=== PATIENT | female | born 1985 | race African-American/Black ===

== ENCOUNTER 2017-05-23 10:15 | Emergency (ER) | payer BC ==
[2017-05-23 10:55] LABS: Bilirubin Negative (Negative); Blood, Urine Moderate (Negative); Glucose, Urine (Dipstick) Negative (Negative); Ketone, Urine Negative (Negative); Nitrite Negative (Negative); Protein, Urine (Dipstick) Negative (Neg-Trace)
[2017-05-23 11:00] LABS: #Eosinphils 0.1 thou/uL (0.0-0.7); #Lymphocytes 2.8 thou/uL (1.20-3.40); #Monocytes 0.8 thou/uL (0.11-0.59); #Neutrophils 9.3 thou/uL (1.40-6.50); %Basophils 0.3 % (0.0-1.0); %Eosinophils 0.9 % (0.0-10.0); %Lymphocytes 21.3 % (21.0-51.0); Hematocrit 39.6 % (36.0-47.0); Red Blood Cell (RBC) Count 5.13 mill/uL (4.20-5.40); White Blood Cell (WBC) Count 13.1 thou/uL (4.8-10.8)
[2017-05-23 11:16] LABS: Hypersemented Neutrophil SLIGHT; Hypochromia SLIGHT = 6-15 cells (100X) (0-5/hpf); Microcytosis SLIGHT = 6-15 cells (100X) (0-5/hpf); Ovalocytes SLIGHT = 2-5 cells (100X) (0-1/hpf); Polychromasia SLIGHT = 2-3 cells (100X) (0-2/hpf)
[2017-05-23 11:18] LABS: ALT (SGPT) 7 U/L (8-55); AST (SGOT) 9 U/L (5-34); Alkaline Phosphatase 91 U/L (40-150); Anion Gap 12 mmol/L (10-20); BUN (Urea Nitrogen) 9 mg/dL (7.0-18.7); Bilirubin, Total 0.8 mg/dL (0.2-1.2); Calc. Creatinine Clearance 0 mL/min (70-130); Calcium 9.4 mg/dL (7.8-10.44); Carbon Dioxide 29 mmol/L (22-29); Chloride 103 mmol/L (98-107); Estimated GFR-MDRD Greater than 90; Globulin 4.3 g/dL (2.4-3.5); Lipase 5 U/L (8-78); Protein, Total 8.4 g/dL (6.0-8.3)
[2017-05-23] MEDS ORDERED: Ketorolac Tromethamine 60 MG/2 ML VIAL ONE (11:48)
[2017-05-23 11:58] LABS: Bacteria/HPF None Seen HPF (None Seen); Hyaline Casts/LPF 0-3 HYALINE CAST LPF (0-3 Hyaline); Squamous Epithelial 0-3 HPF (0-3); WBC/HPF 21-50 HPF (0-3)
--- NOTE | 2017-05-23 13:25 | CT ---
CT OF THE ABDOMEN AND PELVIS WITHOUT CONTRAST: COMPARISON: None. HISTORY: Lower abdominal pain since yesterday. TECHNIQUE: Multiple contiguous axial images were obtained in a CT of the abdomen and pelvis without contrast. Coronal reformats were performed. FINDINGS: The patient is status post cholecystectomy. The liver, kidneys, adrenal glands, spleen, and pancrea s are unremarkable, although evaluation is limited on this noncontrast examination. No free air, free fluid, or stranding changes are seen in the abdomen or pelvis. The large and smal l bowel are unremarkable. The appendix is normal. The uterus is enlarged. The visualized abdominal wall soft tissues unremarkable. The bones are unremarkable. The visualize d inferior thorax is unremarkable. IMPRESSION: Stable enlargement of the uterus is most likely secondary to uterine fibroids. POS: [facility]
== END 2017-05-23 13:08 | disposition home or self-care (01) ==
LOC: ERS 10:15
DX: N30.00 Acute cystitis without hematuria (principal); D25.9 Leiomyoma of uterus, unspecified; I10 Essential (primary) hypertension; E66.9 Obesity, unspecified; Z87.891 Personal history of nicotine dependence; Z79.899 Other long term (current) drug therapy
CPT/HCPCS: 36415; 74176; 80053; 81003; 81015; 81025; 83690; 85025; 87086; 96372; J1885

== ENCOUNTER 2017-05-24 12:50 | Emergency (ER) | payer BC, SELFPAY ==
[2017-05-24 14:32] LABS: #Eosinphils 0.2 thou/uL (0.0-0.7); #Lymphocytes 2.5 thou/uL (1.20-3.40); #Neutrophils 11.6 thou/uL (1.40-6.50); %Basophils 0.2 % (0.0-1.0); %Lymphocytes 16.2 % (21.0-51.0); %Monocytes 6.3 % (0.0-10.0); Hematocrit 37.5 % (36.0-47.0); Red Blood Cell (RBC) Count 4.88 mill/uL (4.20-5.40); White Blood Cell (WBC) Count 15.3 thou/uL (4.8-10.8)
[2017-05-24 14:54] LABS: ALT (SGPT) 8 U/L (8-55); AST (SGOT) 11 U/L (5-34); Alkaline Phosphatase 93 U/L (40-150); Anion Gap 13 mmol/L (10-20); BUN (Urea Nitrogen) 8 mg/dL (7.0-18.7); Bilirubin, Total 0.9 mg/dL (0.2-1.2); Calc. Creatinine Clearance 0 mL/min (70-130); Calcium 9.2 mg/dL (7.8-10.44); Carbon Dioxide 26 mmol/L (22-29); Chloride 104 mmol/L (98-107); Estimated GFR-MDRD Greater than 90; Globulin 4.1 g/dL (2.4-3.5)
[2017-05-24] MEDS ORDERED: Ibuprofen 800 MG TAB ONE (14:56)
--- NOTE | 2017-05-24 15:40 | ULT ---
HISTORY: Vaginal bleeding. History of fibroids, enlarged uterus. PELVIC ULTRASOUND: 05/24/17 Multiple longitudinal and transverse images of the pelvis obtained using a multihertz curvilinear t ransabdominal as well as multihertz endovaginal transducers. Real time and color flow images are use d to evaluate the pelvis. The uterus is bulky measuring 16.2 x 9.8 x 12.7 cm and is heterogeneous. T he endometrium is markedly thickened measuring 3.8 cm. Exam is limited due to the patient's body hab itus. If there is concern for significant pelvic pathology, correlate with physical exam and pelvic MRI electively. Due to the patient's body habitus, pelvic sonography is less than optimum. Right and left ovaries are not visualized. IMPRESSION: 1. Abnormal thickening of the endometrium. 2. Limited pelvic ultrasound. POS: [facility]
== END 2017-05-24 15:33 | disposition home or self-care (01) ==
LOC: ERS 12:50
DX: D25.9 Leiomyoma of uterus, unspecified (principal); I10 Essential (primary) hypertension; E66.9 Obesity, unspecified; Z87.891 Personal history of nicotine dependence
CPT/HCPCS: 36415; 76856; 80053; 84702; 85025

== ENCOUNTER 2017-12-04 00:08 | Emergency (ER) | payer SELFPAY | END 2017-12-04 01:08 | disposition home or self-care (01) | LOC: ERS 00:08 | DX: J06.9 Acute upper respiratory infection, unspecified (principal); D50.0 Iron deficiency anemia secondary to blood loss (chronic); I10 Essential (primary) hypertension; E66.9 Obesity, unspecified; Z87.891 Personal history of nicotine dependence; Z79.899 Other long term (current) drug therapy | CPT/HCPCS: 99283 ==

== ENCOUNTER 2018-01-13 16:30 | Emergency (ER) | payer SELFPAY ==
[2018-01-13 17:32] LABS: Hemoglobin 8.1 g/dL (12.0-16.0); Mean Corpuscular HGB CONC 29.7 g/dL (32.0-36.0); Mean Corpuscular Hemoglobin 19.7 pg (27.0-31.0); Mean Corpuscular Volume 66.3 fl (81.0-99.0); Mean Platelet Volume 9.9 fL (7.4-10.4); Platelet Count 351 thou/uL (130-400); RBC Distribution Width 15.8 % (11.5-14.5); Red Blood Cell (RBC) Count 4.11 mill/uL (4.20-5.40); White Blood Cell (WBC) Count 15.4 thou/uL (4.8-10.8)
[2018-01-13 17:36] LABS: INR-International Normal Ratio 1.1; Prothrombin Time 14.5 SEC (12.0-14.7)
[2018-01-13 17:46] LABS: Bilirubin Small (Negative); Blood, Urine Moderate (Negative); Clarity CLOUDY (Clear); Glucose, Urine (Dipstick) Negative (Negative); Leukocyte Moderate (Negative); Nitrite Negative (Negative); Protein, Urine (Dipstick) Trace mg/dL (Neg-Trace); Specific Gravity, Urine 1.038 (1.002-1.036)
[2018-01-13 17:48] LABS: Bacteria/HPF None Seen HPF (None Seen); Pathc Cast-AUWi Flag 0.72 (0-2.49); Squamous Epithelial 0-3 HPF (0-3)
[2018-01-13 17:51] LABS: Hyaline Casts/LPF 0-3 HYALINE CAST LPF (0-3 Hyaline); Pregnancy Test - Urine (BHCG) Negative (Negative); Pregu Control Background? CLEAR/WHITE (CLR/WHITE); Pregu Control Bar Appear? YES (CONTROL BAR); Specific Gravity 1.038 (1.002-1.036)
[2018-01-13 17:52] LABS: #Basophils 0.1 thou/uL (0.0-0.2); #Lymphocytes 2.3 thou/uL (1.20-3.40); #Monocytes 1.3 thou/uL (0.11-0.59); #Neutrophils 11.7 thou/uL (1.40-6.50); %Basophils 0.5 % (0.0-1.0); %Eosinophils 0.2 % (0.0-10.0); %Lymphocytes 14.8 % (21.0-51.0); %Monocytes 8.2 % (0.0-10.0); %Neutrophils 76.2 % (42.0-75.0); Anisocytosis SLIGHT = 6-15 cells (100X) (0-5/hpf); Hypochromia SLIGHT = 6-15 cells (100X) (0-5/hpf); MDiff Complete? YES; Microcytosis SLIGHT = 6-15 cells (100X) (0-5/hpf); Ovalocytes SLIGHT = 2-5 cells (100X) (0-1/hpf); PLT Morphology Comment Appears Adequate; Polychromasia SLIGHT = 2-3 cells (100X) (0-2/hpf)
[2018-01-13 17:55] LABS: ALT (SGPT) 7 U/L (8-55); AST (SGOT) 9 U/L (5-34); Albumin 4.1 g/dL (3.5-5.0); Alkaline Phosphatase 68 U/L (40-150); Anion Gap 8 mmol/L (10-20); BUN (Urea Nitrogen) 9 mg/dL (7.0-18.7); Bilirubin, Total 1.5 mg/dL (0.2-1.2); Calc. Creatinine Clearance 0 mL/min (70-130); Calcium 9.5 mg/dL (7.8-10.44); Carbon Dioxide 30 mmol/L (22-29); Chloride 102 mmol/L (98-107); Estimated GFR-MDRD Greater than 90; Globulin 4.1 g/dL (2.4-3.5); Glucose 94 mg/dL (70-105); Potassium 3.7 mmol/L (3.5-5.1); Protein, Total 8.2 g/dL (6.0-8.3); Sodium 136 mmol/L (136-145)
--- NOTE | 2018-01-13 18:24 | RAD ---
CHEST ONE VIEW: 01/13/18 HISTORY: Emergency exam. Dizziness and chills. COMPARISON: Chest radiograph 2010. FINDINGS: Lungs are clear. No pneumothorax or effusion. The cardiac silhouette and mediastinal contours are wit hin normal limits. No acute osseous abnormality. IMPRESSION: No acute intrathoracic abnormality. POS: [facility]
[2018-01-13] MEDS ORDERED: cefTRIAXone\\ROCEPHIN 2 GM VIAL ONE (19:17)
== END 2018-01-13 20:48 | disposition home or self-care (01) ==
LOC: ERS 16:30
DX: N30.91 Cystitis, unspecified with hematuria (principal); Z85.42 Personal history of malignant neoplasm of other parts of uterus; D50.9 Iron deficiency anemia, unspecified; I10 Essential (primary) hypertension; E66.9 Obesity, unspecified; Z87.891 Personal history of nicotine dependence; Z79.899 Other long term (current) drug therapy
CPT/HCPCS: 36415; 71045; 80053; 81003; 81015; 81025; 85025; 85610; 87081; 87086; 87430; 93005; 96361; 96365; J0696

== ENCOUNTER 2019-03-28 05:17 | Observation (INO) | payer SELFPAY ==
[2019-03-28] MEDS ORDERED: Morphine 4 MG/ML VIAL ONE (06:27)
[2019-03-28 07:24] LABS: BHCG - Serum Negative (NEGATIVE); Pregs Control Background? CLEAR/WHITE (CLR/WHITE); Pregs Control Bar Appear? YES (CONTROL BAR)
[2019-03-28 07:41] LABS: ALT (SGPT) 9 U/L (8-55); AST (SGOT) 32 U/L (5-34); Albumin 4.1 g/dL (3.5-5.0); Alkaline Phosphatase 117 U/L (40-150); Anion Gap 12 mmol/L (10-20); BUN (Urea Nitrogen) 7 mg/dL (7.0-18.7); Bilirubin, Total 0.5 mg/dL (0.2-1.2); Calc. Creatinine Clearance 0 mL/min (70-130); Calcium 9.9 mg/dL (7.8-10.44); Carbon Dioxide 22 mmol/L (22-29); Chloride 105 mmol/L (98-107); Estimated GFR-MDRD Greater than 90; Globulin 4.2 g/dL (2.4-3.5); Glucose 86 mg/dL (70-105); Lipase 10 U/L (8-78); Protein, Total 8.3 g/dL (6.0-8.3); Sodium 135 mmol/L (136-145)
[2019-03-28 07:53] LABS: Bacteria/HPF 4+ HPF (None Seen); Bilirubin Negative (Negative); Blood, Urine 2+ (Negative); Clarity Extra Turbid (Clear); Glucose, Urine (Dipstick) Normal (Negative); Leukocyte 500 Leu/uL (Negative); Nitrite Negative (Negative); Protein, Urine (Dipstick) 10 mg/dL (Neg-Trace); Squamous Epithelial 0-3 HPF (0-3); Urobilinogen 3 mg/dL (Less than 2)
--- NOTE | 2019-03-28 08:11 | CT ---
CT OF THE ABDOMEN AND PELVIS WITH IV CONTRAST INDICATION: Right upper quadrant abdominal pain COMPARISON: CT of the abdomen and pelvis without contrast dated May 23, 2017 FINDINGS: ABDOMEN: Lung bases: Clear Liver: There are hypodense masses now present within the central aspect of the right hepatic lobe on image 22, 21 and 18 of series 3. The largest measures 3.3 cm on image 18 series 3. There is diffuse hypodensity involving multiple portions of the right hepatic lobe. Gallbladder: Surgically absent Pancreas: Normal. Adrenal glands: Normal. Spleen: Enlarged measuring 17 cm Kidneys: Normal. Retroperitoneum of the upper abdomen: There is a mildly prominent left common iliac lymph node on roxanne ge 60 series 3 measuring 1.3 cm. There are additional mildly prominent lymph nodes seen along both iliac regions. There are enlarged periaortic lymph nodes measuring up to 1.8 cm image 51 series 3. Th ere is an aortocaval lymph node measuring 1.4 cm. Pelvis: Small and large bowel: Normal Bladder: Decompressed. Small amount of fluid is seen superior to the superior dome of the bladder. Rectal and perirectal soft tissues:Normal. Reproductive structures: The uterus is enlarged and heterogeneous with an associated IUD. Free fluid in pelvis: Mild free fluid is seen between the enlarged uterus and decompressed bladder Lymphadenopathy pelvis: There are enlarged lymph nodes seen along the left external iliac chain. When the largest is seen measuring 2.1 cm image 90 of series 3. There are mildly prominent inguinal lymph nodes bilaterally. There is a prominent lymph node seen adjacent to the left internal iliac art ailyn measuring 1.7 cm. Osseous structures: No acute fracture or subluxation demonstrated. There is scattered degenerative a nd osteoarthritic changes. IMPRESSION: 1. Hepatic hypodensities with retroperitoneal and pelvic lymphadenopathy suspicious for metastatic di sease. 2. Enlarged heterogeneous uterus likely correlating with the patient's known history of endometrial c arcinoma. There is an IUD within the lower central aspect of the enlarged uterus. 3. Mild splenomegaly
[2019-03-28 08:12] LABS: #Basophils 0.1 thou/uL (0.0-0.2); #Eosinphils 0.1 thou/uL (0.0-0.7); #Monocytes 1.1 thou/uL (0.11-0.59); #Neutrophils 6.8 thou/uL (1.40-6.50); %Basophils 0.7 % (0.0-1.0); %Eosinophils 0.8 % (0.0-10.0); %Lymphocytes 27.3 % (21.0-51.0); %Monocytes 10.2 % (0.0-10.0); Elliptocytes SLIGHT = 2-5 cells (100X) (0-1/hpf); Hemoglobin 9.5 g/dL (12.0-16.0); MDiff Complete? YES; Mean Corpuscular HGB CONC 30.6 g/dL (32.0-36.0); Mean Corpuscular Hemoglobin 21.3 pg (27.0-31.0); Mean Corpuscular Volume 69.4 fL (78.0-98.0); Mean Platelet Volume 9.5 fL (7.4-10.4); Microcytosis MODERATE=15-30 cells (100X) (0-5/hpf); Platelet Count 484 thou/uL (130-400); Polychromasia MODERATE = 3-4 cells (100X) (0-2/hpf); RBC Distribution Width 16.7 % (11.5-14.5); Red Blood Cell (RBC) Count 4.48 mill/uL (4.20-5.40); White Blood Cell (WBC) Count 11.1 thou/uL (4.8-10.8)
[2019-03-28] MEDS ORDERED: Ondansetron PF 4 MG/2 ML Vial IVP PRN (08:21)
[2019-03-28] MEDS ORDERED: Ondansetron ODT 4 MG TAB SL PRN (08:21)
[2019-03-28] MEDS ORDERED: Acetaminophen 325 MG TAB PO PRN (08:21)
[2019-03-28] MEDS ORDERED: HYDROcodone/Acetaminophen 5/325 mg Tablet PO PRN (08:21)
[2019-03-28] MEDS ORDERED: cefTRIAXone\\ROCEPHIN 1 GM VIAL ONE (08:50)
--- NOTE | 2019-03-28 09:21 | CT ---
CT PULMONARY ANGIOGRAM WITH IV CONTRAST AND 3D POSTPROCESSING: Date: 03/28/19 HISTORY: Right-sided chest pain, shortness of breath. Newly diagnosed endometrial cancer. FINDINGS: There is inadequate opacification of the pulmonary arterial vasculature, making this a nondiagnostic exam to evaluate for pulmonary embolism. The thoracic aorta is well opacified without aneurysm or dissection. No pleural or pericardial effusi ons are seen. No pneumothoraces or focal areas of consolidation are identified. There are multiple pa renchymal lung nodules, the largest of which measures about 8 mm in the superior segment of the left lower lobe. Upper abdominal tomograms demonstrate multiple liver masses. There are changes of cholecy stectomy. There are mild degenerative changes in the spine. IMPRESSION: 1. Nondiagnostic for pulmonary embolism. 2. Findings are suspicious for hepatic and pulmonary metastasis. POS: [facility]
[2019-03-28] MEDS: HYDROcodone/Acetaminophen 5/325 mg Tablet PO PRN ×2 (11:13→17:30)
[2019-03-28] MEDS ORDERED: cloNIDine 0.1 MG TAB PO PRN (11:22)
[2019-03-28] MEDS ORDERED: hydrALAZINE 20 MG/ML VIAL SLOW IVP PRN (11:22)
[2019-03-28] MEDS ORDERED: traMADol HCl 50 MG TAB PO PRN (11:36)
[2019-03-28] MEDS ORDERED: Ibuprofen 200 MG TAB PO PRN (11:36)
[2019-03-28] MEDS ORDERED: ISOVUE-370 76%-LOCM 1 ML ONE (11:59)
[2019-03-28 12:00] VITALS: BMI 26.1
--- NOTE | 2019-03-28 12:02 | HP ---
PRIMARY CARE: [facility]. CHIEF COMPLAINT: Shortness of breath. HISTORY OF PRESENT ILLNESS: The patient is a 33-year-old female with recently diagnosed endometrial carcinoma, presented to the emergency room with above complaints. Approximately a month ago, she was diagnosed with endometrial cancer. Earlier this month, she was evaluated at Oncology Clinic in [facility] by Dr. Swift. She currently has Mirena IUD in place. Megace was started. She was advised to follow up with Dr. Lugo in 4 months for repeat biopsy and for possible surgical intervention if needed. Three days ago, she was evaluated at [facility] for left lower extremity swelling along with some nonspecific shortness of breath. CT angiogram of the chest was negative for pulmonary embolism. It showed several pulmonary nodules. Left lower extremity Doppler was negative for DVT. She was discharged home. Over the last 2 days, the patient developed worsening shortness of breath along with pain on deep breathing. The pain is mainly on the right side of the chest as well as in the upper abdomen. She took some ibuprofen which partially helped. The pain is constant with intermittent stabbing. She denies any orthopnea. The leg swelling has somewhat improved over the last 3 to 4 days. She denies any nausea, vomiting, diaphoresis, palpitations, or fever. No history of pulmonary embolism in the past. PAST MEDICAL HISTORY: 1. Recently diagnosed endometrial cancer. 2. Hypertension. PAST SURGICAL HISTORY: 1. Endometrial biopsy. 2. Laparoscopic cholecystectomy. ALLERGIES: NO KNOWN DRUG ALLERGIES. CURRENT HOME MEDICATIONS: 1. Megace 40 mg twice a day. 2. Lisinopril/hydrochlorothiazide 20/12.5 daily. 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 She is single. She is sexually active. She has a Mirena IUD. She denies current use of smoking, alcohol, or drug use. FAMILY HISTORY: Negative for malignancy. REVIEW OF SYSTEMS: All other review of systems reviewed and were found negative. PHYSICAL EXAMINATION: VITAL SIGNS: Temperature 98.2, respirations 18, pulse 96, blood pressure 185/ 119, repeat blood pressure was 162/124. GENERAL: A 33-year-old female in no significant distress at rest. HEENT: Head, atraumatic and normocephalic. Sclerae anicteric. Moist mucous membranes. No oral lesion. NECK: Supple. No JVD appreciated. No carotid bruit. LUNGS: Clear to auscultation bilaterally. No wheezing, rales, rhonchi. There is questionable tenderness over the right lower chest. ABDOMEN: Soft. There is tenderness in the right upper quadrant. No rebound or guarding. EXTREMITIES: 2+ edema in bilateral lower extremities. No calf tenderness. SKIN: Warm and dry. LYMPH NODES: No palpable lymph nodes in the neck. PERIPHERAL VASCULAR: Radial pulses palpable bilaterally. MUSCULOSKELETAL: No joint swelling or tenderness. LABORATORY FINDINGS: WBC 11.1, hemoglobin 9.5, hematocrit 31.1, platelet 484. D-dimer was 2.53. Sodium 135, potassium 4, chloride 105, bicarb 22, BUN 7, creatinine 0.66. testing was negative. Urinalysis showed 11 to 20 wbc's with 4+ bacteria. CT scan of the abdomen and pelvis by my review showed endometrial cancer with hepatic hypodensities with retroperitoneal and pelvic lymphadenopathy suspicious for metastatic disease. CT scan of the chest was nondiagnostic for pulmonary embolism. IMPRESSION: 1. Shortness of breath of unclear etiology. 2. Recently diagnosed endometrial cancer. 3. Hepatic hypodensities with retroperitoneal and pelvic lymphadenopathy suspicious for metastatic disease. 4. Pulmonary nodule suspicious for pulmonary metastasis. 5. Urinary tract infection. 6. Hypertension, uncontrolled. 7. Mild hyponatremia. 8. PLAN: The patient will be monitored on the telemetry unit. We will obtain an echocardiogram. V/Q scan will be obtained. Pain is pleuritic, mainly on the right, concerning for pulmonary embolism given a history of endometrial cancer. Please note that CT scan of the chest three days ago was negative for pulmonary embolism at [facility]. However, she did not have shortness of breath at that time. We will repeat one more set of troponin. Empiric antibiotics will be started. The patient was advised to follow up with Oncology Clinic at [facility]. Plan of care was discussed with the patient in detail. She stated understanding. Job ID: [id number] [facility]
[2019-03-28 12:18] LABS: Troponin I Less than 0.010 ng/mL (< 0.028)
--- NOTE | 2019-03-28 15:55 | NM ---
NUCLEAR MEDICINE LUNG VENTILATORY AND PERFUSION EVALUATION INDICATION: 33-year-old female with history of endometrial cancer and shortness of breath Radiopharmaceutical: Ventilation: 10.90 mCi xenon-133 inhaled. Perfusion: 5.30 mCi technetium 99m MAA IV. COMPARISON: None. FINDINGS: Ventilation: There is symmetric ventilatory activity on initial breath, breath-hold and washout image s. Perfusion: No large pleural-based perfusion abnormality is demonstrated. Mismatch: No mismatched ventilatory or perfusion abnormality is demonstrated. Additional findings: None. IMPRESSION: Low probability VQ scan for PE
--- NOTE | 2019-03-28 16:04 | RAD ---
Chest 2 views HISTORY: Chest pain. Dyspnea. COMPARISON: 05/02/2011. FINDINGS: Cardiac silhouette and pulmonary vasculature are unremarkable. Mediastinum is midline. No c onfluent airspace consolidation, pneumothorax, or pleural fluid. IMPRESSION: No active cardiopulmonary abnormalities are demonstrated.
[2019-03-28] MEDS ORDERED: Megestrol Acetate 40 MG TAB ONE (19:59)
[2019-03-28] MEDS: Megestrol Acetate 40 MG TAB PO SCH (20:03)
[2019-03-28] MEDS ORDERED: Enoxaparin Sodium 40 MG/0.4 ML SYRINGE SC SCH (21:00)
[2019-03-29] MEDS: Megestrol Acetate 40 MG TAB PO SCH (08:19)
[2019-03-29 08:30] VITALS: BP 139/90; TEMP 98.3
[2019-03-29] MEDS ORDERED: cefTRIAXone\\ROCEPHIN 1 GM in Sodium Chloride 0.9% 100 ML IVPB SCH (09:00)
[2019-03-29] MEDS ORDERED: Lisinopril/Hydrochlorothiazide 20 mg/12.5 mg Tablet PO SCH (09:00)
--- NOTE | 2019-03-29 17:31 | DIS ---
DATE OF ADMISSION: 03/28/2019 DATE OF DISCHARGE: 03/29/2019 DISCHARGE DISPOSITION: Home. FOLLOWUP: 1. Follow up with primary care physician at [facility] in 1 week. 2. Follow up with Oncology Service at [facility] in 1 to 2 weeks. ALLERGIES: THE PATIENT DENIES ANY DRUG ALLERGIES. DISCHARGE MEDICATION: 1. Ciprofloxacin 250 mg twice daily for next 3 days. 2. All other home medications were left unchanged. BRIEF HOSPITAL COURSE: The patient is a 33-year-old female with recently diagnosed endometrial cancer, presented to the hospital with shortness of breath. She was seen at [facility] three days ago for similar complaints. She underwent a CT angiogram of the chest in the emergency room that was nondiagnostic for pulmonary embolism. CT scan of the abdomen and pelvis showed endometrial cancer with hepatic hypodensities and retroperitoneal/pelvic lymphadenopathy suspicious for metastatic disease. A V/Q scan was done due to nondiagnostic CTA which showed low probability for pulmonary embolism. Echocardiogram showed left ventricular ejection fraction 60% to 65% with mild left ventricular hypertrophy. Her chest pain is probably musculoskeletal. She was advised to follow up with Oncology Service at [facility] due to suspected metastatic lesions in the liver and the lung. A copy of the CT scan of the chest and abdomen was provided to the patient. She was also found to have UTI and has been started on ciprofloxacin. She was advised to follow up on final identification and susceptibilities. She appears stable for discharge. FINAL DIAGNOSES: 1. Shortness of breath with right-sided pleuritic chest pain of unclear etiology. Suspected musculoskeletal. Pulmonary embolism ruled out. Echocardiogram showed normal left ventricular ejection fraction. 2. Recently diagnosed endometrial cancer followed at [facility]. 3. Hepatic hypodensities with retroperitoneal and pelvic lymphadenopathy suspicious for metastatic disease. 4. Pulmonary nodules suspicious for pulmonary metastasis. 5. Hypertension. 6. Urinary tract infection. 7. Mild hyponatremia. PLAN: Plan of care was discussed with the patient and the mother at the bedside. The patient stated understanding. The patient understands the consequences of not following up with Oncology Clinic at [place] as advised. Job ID: [id number]
--- NOTE | 2019-04-02 16:07 | EKG ---
Test Reason : Blood Pressure : / mmHG Vent. Rate : 086 BPM Atrial Rate : 086 BPM P-R Int : 184 ms QRS Dur : 086 ms QT Int : 356 ms P-R-T Axes : 028 039 034 degrees QTc Int : 426 ms Normal sinus rhythm Normal ECG Confirmed by PAPA PITTS M.D. ([id number]), editorial project manager MARIANA MEZA ([id number] on 04/02/2019 2:59:54 PM Referred By: Confirmed By:PAPA PITTS M.D.
== END 2019-03-29 10:10 | disposition home or self-care (01) ==
LOC: ERS 05:17 → 2SW 08:51
PROVIDERS: ADMIT Internal Medicine; ATTEND Internal Medicine
DX: R06.02 Shortness of breath (principal); R07.81 Pleurodynia; C54.1 Malignant neoplasm of endometrium; K76.89 Other specified diseases of liver; R59.1 Generalized enlarged lymph nodes; R91.1 Solitary pulmonary nodule; I10 Essential (primary) hypertension; N39.0 Urinary tract infection, site not specified; E87.1 Hypo-osmolality and hyponatremia; E66.9 Obesity, unspecified; Z91.19 Patient's noncompliance with other medical treatment and regimen; Z87.891 Personal history of nicotine dependence; Z68.26 Body mass index [BMI] 26.0-26.9, adult; Z91.010 Allergy to peanuts; Z79.899 Other long term (current) drug therapy
CPT/HCPCS: 36415; 71046; 71275; 74177; 78582; 80053; 81003; 81015; 83690; 83880; 84484; 84703; 85025; 85379; 87077; 87086; 87186; 93005; 93306; 94760; 96365; 96366; 96372; 96375; A9540; A9558; G0378; J0360; J0696; J1650; J2270; J3490; Q9966; S0179

== ENCOUNTER 2019-04-05 23:20 | Inpatient (IN) | payer SELFPAY ==
[2019-04-05 23:54] LABS: Hemoglobin 9.9 g/dL (12.0-16.0); Mean Corpuscular HGB CONC 29.5 g/dL (32.0-36.0); Mean Platelet Volume 8.4 fL (7.4-10.4); Platelet Count 730 thou/uL (130-400); Red Blood Cell (RBC) Count 4.72 mill/uL (4.20-5.40); White Blood Cell (WBC) Count 14.3 thou/uL (4.8-10.8)
[2019-04-06 00:02] LABS: #Basophils 0.1 thou/uL (0.0-0.2); #Lymphocytes 3.4 thou/uL (1.20-3.40); #Monocytes 1.2 thou/uL (0.11-0.59); #Neutrophils 9.6 thou/uL (1.40-6.50); %Basophils 0.6 % (0.0-1.0); %Eosinophils 0.1 % (0.0-10.0); %Lymphocytes 23.7 % (21.0-51.0); %Monocytes 8.3 % (0.0-10.0); %Neutrophils 67.3 % (42.0-75.0); Anisocytosis SLIGHT = 6-15 cells (100X) (0-5/hpf); Hypochromia SLIGHT = 6-15 cells (100X) (0-5/hpf); MDiff Complete? YES; Platelet Morphology Comment Appears Increased
--- NOTE | 2019-04-06 00:04 | RAD ---
Portable frontal chest radiograph: 04/05/2019 COMPARISON: 01/13/2018 HISTORY: Vomiting FINDINGS: Lungs are clear. Heart and mediastinal contours appear within normal limits. IMPRESSION: No acute findings.
[2019-04-06 00:08] LABS: ALT (SGPT) 9 U/L (8-55); AST (SGOT) 39 U/L (5-34); Albumin 4.6 g/dL (3.5-5.0); Alkaline Phosphatase 215 U/L (40-150); Anion Gap 20 mmol/L (10-20); BUN (Urea Nitrogen) 10 mg/dL (7.0-18.7); Bilirubin, Total 1.3 mg/dL (0.2-1.2); CK (CPK) 282 U/L (29-168); Calc. Creatinine Clearance 0 mL/min (70-130); Carbon Dioxide 19 mmol/L (22-29); Chloride 100 mmol/L (98-107); Estimated GFR-MDRD Greater than 90; Globulin 4.7 g/dL (2.4-3.5); Glucose 80 mg/dL (70-105); Potassium 3.8 mmol/L (3.5-5.1); Protein, Total 9.3 g/dL (6.0-8.3); Sodium 135 mmol/L (136-145)
[2019-04-06 00:10] LABS: Calcium 13.3 mg/dL (7.8-10.44)
[2019-04-06] MEDS ORDERED: Ondansetron PF 4 MG/2 ML Vial ONE (00:18)
[2019-04-06] MEDS ORDERED: Pantoprazole 40 MG VIAL ONE (00:19)
[2019-04-06] MEDS ORDERED: Ondansetron PF 4 MG/2 ML Vial IVP PRN (02:39)
[2019-04-06] MEDS ORDERED: Ondansetron ODT 4 MG TAB SL PRN (02:39)
[2019-04-06] MEDS ORDERED: Sodium Chloride 0.9% 1,000 ML IV SCH ×2 (02:45→08:00)
[2019-04-06 03:22] VITALS: BMI 54.3
[2019-04-06] MEDS ORDERED: Sodium Chloride 0.9% 10 ML ONE (03:24)
[2019-04-06] MEDS ORDERED: Acetaminophen 325 MG TAB PO PRN (07:55)
[2019-04-06] MEDS ORDERED: Calcium Carbonate 500 MG ChewTAB PO PRN (07:55)
[2019-04-06] MEDS ORDERED: Senokot S 8.6-50 MG TAB PO PRN (07:55)
[2019-04-06] MEDS ORDERED: Ondansetron ODT 4 MG TAB PO PRN (07:55)
[2019-04-06] MEDS ORDERED: cloNIDine 0.1 MG TAB PO PRN (07:59)
[2019-04-06] MEDS ORDERED: Labetalol HCl 100 MG/20 ML VIAL SLOW IVP PRN (07:59)
[2019-04-06] MEDS ORDERED: Sodium Chloride 0.9% (PF) 10 ML VIAL FS PRN (08:37)
[2019-04-06] MEDS ORDERED: Morphine 4 MG/ML VIAL ONE (08:43)
[2019-04-06] MEDS: Pantoprazole 40 MG VIAL IVP SCH ×2 (08:50→20:45)
--- NOTE | 2019-04-06 09:47 | RAD ---
EXAM: 2 views of the abdomen HISTORY: Nausea and vomiting COMPARISON: None FINDINGS: 2 views of the abdomen shows a nonspecific, nonobstructive bowel gas pattern. No free air o r air-fluid levels are seen on upright examination. No suspicious calcifications are seen. An IUD is seen in the pelvis. The bones are unremarkable. IMPRESSION: No evidence of bowel obstruction.
[2019-04-06 11:10] LABS: Platelet Count 630 thou/uL (130-400)
[2019-04-06 11:14] LABS: INR-International Normal Ratio 1.3; Prothrombin Time 15.7 SEC (12.0-14.7)
[2019-04-06 11:20] LABS: BHCG - Serum Negative (NEGATIVE); Pregs Control Background? CLEAR/WHITE (CLR/WHITE); Pregs Control Bar Appear? YES (CONTROL BAR)
[2019-04-06 11:25] LABS: Anion Gap 15 mmol/L (10-20); BUN (Urea Nitrogen) 7 mg/dL (7.0-18.7); Calc. Creatinine Clearance 280 mL/min (70-130); Carbon Dioxide 20 mmol/L (22-29); Chloride 101 mmol/L (98-107); Estimated GFR-MDRD Greater than 90; Glucose 67 mg/dL (70-105); Potassium 3.7 mmol/L (3.5-5.1); Sodium 132 mmol/L (136-145)
[2019-04-06 11:33] LABS: Calcium 12.5 mg/dL (7.8-10.44)
[2019-04-06] MEDS: Morphine 2 MG/ML SYRINGE SLOW IVP PRN ×4 (12:34→22:08)
[2019-04-06] MEDS: Dextrose 5 % And 0.9 % NaCl 1,000 ML IV SCH ×2 (12:34→18:54)
[2019-04-06] MEDS: Ondansetron PF 4 MG/2 ML Vial IVP PRN ×2 (15:52→22:08)
[2019-04-06 16:13] LABS: Hemoglobin 8.9 g/dL (12.0-16.0)
--- NOTE | 2019-04-06 17:27 | HP ---
PRIMARY CARE PHYSICIAN: [facility]. CHIEF COMPLAINT: Nausea and vomiting. HISTORY OF PRESENT ILLNESS: The patient is a 33-year-old female with recently diagnosed endometrial cancer with suspected liver and lung metastasis, presented to the emergency room with above complaints. The patient is followed at [facility] for endometrial cancer. She was hospitalized at this facility for pleuritic chest pain. Pulmonary embolism was ruled out. She has a followup with Oncology Clinic next week at [facility]. Over the last 4 to 5 days, the patient developed intractable nausea and vomiting. She was unable to keep any food down. She also had 3 to 4 episodes of coffee- ground emesis. She also had some abdominal cramping. No melena or hematochezia reported. She was unable to keep any liquids or solids down. The abdomen pain was generalized, moderate to severe in intensity, worse during the vomiting episode. She denies any changes to her shortness of breath from last week. In the emergency room, her initial vital signs showed temperature 98.8, respirations 22, pulse rate of 138 with blood pressure of 168/108, and O2 saturation 98% on room air. EKG showed sinus tachycardia. She received IV Protonix with IV fluids and Zofran in the emergency room. PAST MEDICAL HISTORY: Recently diagnosed endometrial cancer with suspected liver and lung metastasis. 1. Hypertension. 2. Recent UTI. 3. Morbid obesity with a BMI of 54.3. 4. Hypertension. PAST SURGICAL HISTORY: 1. Endometrial biopsy. 2. Laparoscopic cholecystectomy. ALLERGIES: NO KNOWN DRUG ALLERGIES. CURRENT HOME MEDICATIONS: The patient was started on Megace approximately 2 weeks ago. She also takes: 1. Albuterol inhaler as needed. 2. Lisinopril/hydrochlorothiazide. 3. Xvsp-yju-ditbnuj pain medications. 4. She has been taking NSAID also recently. 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 She has Mirena IUD. No current use of smoking, alcohol, or drug use. FAMILY HISTORY: Negative for malignancy. REVIEW OF SYSTEMS: All other review of systems was reviewed and was found negative. PHYSICAL EXAMINATION: VITAL SIGNS: As discussed above. GENERAL: A 33-year-old female, in no apparent distress. Nausea and vomiting controlled with Zofran. HEENT: Head, atraumatic and normocephalic. Sclerae anicteric. Moist mucous membranes. No oral lesion. NECK: Supple. No JVD appreciated. No carotid bruit. LUNGS: Clear to auscultation bilaterally. No wheezing, rales, or rhonchi. HEART: S1 and S2 present. Regular rate and rhythm. No rubs or gallops appreciated. ABDOMEN: Soft. Mild generalized tenderness. No rebound or guarding. No costovertebral angle tenderness. EXTREMITIES: No edema or calf tenderness. NEUROLOGIC: Grossly nonfocal. Moves all 4 extremities. PSYCHIATRIC: Alert, awake, and oriented x3. SKIN: Warm and dry. LYMPH NODES: No palpable lymph nodes in the neck. PERIPHERAL VASCULAR: Radial pulses palpable bilaterally. MUSCULOSKELETAL: No joint swelling or tenderness. LABORATORY AND DIAGNOSTIC DATA: Calcium of 13.3, sodium 135, potassium 3.8, total bilirubin 1.3 with AST of 39, alkaline phosphatase 215. CK of 282. was negative. Lipase was negative. Hemoglobin on admission 9.9, repeat hemoglobin was 9.0. EKG, by my review, as discussed above. Recent CT scan of the abdomen and pelvis, by my review, showed endometrial cancer with hepatic hypodensities as well as retroperitoneal and pelvic lymphadenopathy. CT scan of the chest recently was consistent with suspected pulmonary metastasis. KUB, by my review, was negative for bowel obstruction. IMPRESSION: 1. Nausea and vomiting of unclear etiology. 2. Hematemesis, probably secondary to NSAID use. 3. Acute blood loss anemia, probably secondary to upper gastrointestinal bleed. 4. Hypercalcemia of 13.3 - ?malignancy related 5. Abnormal LFTs of unclear etiology. Her LFTs were normal last week. 6. Hyponatremia secondary to dehydration. 7. Metabolic acidosis, probably secondary to dehydration. 8. Morbid obesity with a BMI of 54.3. 9. Dehydration. PLAN: The patient will be monitored on the medical floor. We will continue IV PPI. We will continue IV fluids. Consult Gastroenterology and Nephrology. Walking program. We will recheck urinalysis due to recent UTI. Recheck labs in a.m. Clear antiemetics. We will hold lisinopril/hydrochlorothiazide. Add nebulizer treatment as needed. The patient has an appointment with Oncology Clinic at [facility] next week. We will monitor H and H closely. Plan of care was discussed with the patient in detail. She stated understanding. Job ID: [id number] [facility]
--- NOTE | 2019-04-06 18:20 | PDOC.EVN ---
Event Note - Event Note Event Note: Case d/w Dr Ponce in detail. Patient will probably need Calcitonin per Nephrology I d/w OBGYN Hospitalist Dr Danilo dubose to give Calcitonin. I also d/w Ms Rubin Oncologist Dr Swift (at [facility]) in detail. Dr Swift recommended to get CT guided Liver biopsy. Will schedule this for AM. I d/w Radiologist Patient agrees with biopsy and understands the risk.
[2019-04-06 18:23] LABS: Bilirubin Negative (Negative); Blood, Urine Negative (Negative); Clarity Clear (Clear); Glucose, Urine (Dipstick) Normal (Negative); Leukocyte 25 Leu/uL (Negative); Nitrite Negative (Negative); Protein, Urine (Dipstick) 10 mg/dL (Neg-Trace); RBC/HPF 0-3 HPF (0-3); Squamous Epithelial 0-3 HPF (0-3)
[2019-04-06 18:34] LABS: Bacteria/HPF Rare-Few HPF (None Seen)
[2019-04-06] MEDS ORDERED: Calcitonin,Salmon,Synthetic 200 UNITS/ML SC SCH (18:45)
--- NOTE | 2019-04-07 01:46 | CON ---
DATE OF CONSULTATION: 04/06/2019 CONSULTING PHYSICIAN: Dr. Maciel. REASON FOR CONSULT: Hypercalcemia. REASON FOR ADMISSION: Nausea and vomiting. HISTORY OF PRESENT ILLNESS: This is a 33-year-old morbidly obese female with history of recently diagnosed endometrial cancer with suspected liver and lung mets, came to the hospital with nausea and vomiting, was found to have hypercalcemia. Her calcium initially was 13.3 with albumin of 4.6 and with hydration, 12.5. Nephrology was consulted. The patient is still feeling sick. She complains of bone pain and pain all over. No chest pain. No fever or chills reported. No skin rash. Complains of nausea and vomiting, which are slightly better since hospitalization. PAST MEDICAL HISTORY: Positive for recently diagnosed endometrial cancer with possible mets, UTI, morbid obesity, and hypertension. PAST SURGICAL HISTORY: Endometrial biopsy and lap avril. ALLERGIES: NO KNOWN DRUG ALLERGIES. HOME MEDICATIONS: 1. Started on megestrol 2 weeks back. 2. Albuterol. 3. Lisinopril-hydrochlorothiazide. 4. NSAID. SOCIAL HISTORY: No smoking, alcohol, or illicit drugs. FAMILY HISTORY: No history of kidney disease. REVIEW OF SYSTEMS: CONSTITUTIONAL: Negative for weight loss or gain, ability to conduct usual activities. SKIN: Negative for rash, itching. EYES: Negative for double vision, pain. ENT/MOUTH: Negative for nose bleeding, neck stiffness, pain, tenderness. CARDIOVASCULAR: Negative for palpitations, dyspnea on exertion, orthopnea. RESPIRATORY: Negative for shortness of breath, wheezing, cough, hemoptysis, fever or night sweats. GASTROINTESTINAL: Negative for poor appetite, abdominal pain, heartburn, nausea, vomiting, constipation, or diarrhea. GENITOURINARY: Negative for urgency, frequency, dysuria, nocturia. MUSCULOSKELETAL: Negative for pain, swelling. NEUROLOGIC/PSYCHIATRIC: Negative for anxiety, depression. ALLERGY/IMMUNOLOGIC: Negative for skin rash, bleeding tendency. PHYSICAL EXAMINATION: GENERAL: Morbidly obese female, no apparent distress. VITAL SIGNS: Temperature 98.7, pulse 91, respiratory rate 15, and blood pressure 170/79. HEENT: Atraumatic and normocephalic. Oral mucosa moist. NECK: Supple. CVS: S1 and S2 heard. Rate and rhythm regular. RESPIRATORY: Clear. GASTROINTESTINAL: Abdomen is soft. MUSCULOSKELETAL: 1+ edema. DERMATOLOGIC: No skin rash. NEUROLOGIC: Alert and awake. PSYCHIATRIC: Mood and affect normal. LABORATORY DATA: Hemoglobin is 8.9. Sodium 132, potassium 3.7, BUN is 7, creatinine is 0.6, calcium is 12.5 from 13.3, and albumin is 4.6. AST 39. ASSESSMENT AND PLAN: 1. Hypercalcemia, most likely malignancy related. Plan is to start calcitonin. We will recheck calcium in the morning. We will also continue on IV fluids. We will check PTH related protein, PTH, and vitamin D levels. 2. Endometrial cancer, most likely seems to be aggressive. Follow up with [facility]. 3. Hyponatremia, on IV fluids. 4. Elevated liver enzymes, elevated alkaline phos, and elevated CK level. 5. Prognosis guarded. We will monitor calcium closely. Thank you for the consult. Job ID: [id number]
[2019-04-07] MEDS: Morphine 2 MG/ML SYRINGE SLOW IVP PRN ×8 (02:10→22:30)
--- NOTE | 2019-04-07 02:22 | CON ---
DATE OF CONSULTATION: 04/06/2019 CHIEF COMPLAINT: Nausea and vomiting. HISTORY OF PRESENT ILLNESS: Ms. Rubin was just in the hospital last week with shortness of breath and left leg swelling and she was evaluated for pulmonary embolism. PE was not confirmed. She was discharged home, but then the next day, which was last Friday, she developed nausea and vomiting. Initially she just threw up her food for the 1st couple of days and then started having bilious vomiting. She only tolerated liquids for the next several days, but then started even throwing up the Gatorade and broth that she was taking in. She had associated aching epigastric pain that did not radiate. She took Midol for some lower abdominal cramping pain as well around 4 tablets at a time. She also took some acetaminophen. She has had yesterday 2 episodes of coffee-grounds emesis after she had 1 episode of red bloody streaks in her emesis. This followed a prolonged period of retching. She has had no bowel movement over the last couple of days. No chest pain or shortness of breath currently. Her nausea now is much better after receiving IV fluids. She is tolerating some clear liquids tonight. She was found to have severe hypercalcemia in the emergency room and has been started on calcitonin. She was given fluids and pantoprazole IV as well. PAST MEDICAL HISTORY: Recent diagnosis of endometrial cancer in January 2019. Apparently, there was evidence of metastatic disease to the liver and lungs. She is scheduled for a liver biopsy tomorrow and she has followup scheduled with [facility] On[facility] through [facility]. Also hypertension, morbid obesity. PAST SURGICAL HISTORY: Endometrial biopsy, cholecystectomy. FAMILY HISTORY: Negative for GI malignancy. SOCIAL HISTORY: No alcohol, tobacco, or drugs. She has no children. 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 ALLERGIES: NO KNOWN DRUG ALLERGIES. MEDICATIONS: Prior to admission; 1. Albuterol. 2. Lisinopril with hydrochlorothiazide. 3. Midol. Here in the hospital, she is receiving; 1. Pantoprazole 40 mg IV q.12 hour. 2. Calcitonin. REVIEW OF SYSTEMS: Negative x10 systems reviewed except as stated in the history of present illness. PHYSICAL EXAMINATION: VITAL SIGNS: Temperature 98.7, pulse 90, blood pressure 178/101, weight 336 pounds. GENERAL: She is in no acute distress. Alert and oriented x3. HEENT: Eyes have no scleral icterus. Oropharynx is clear without lesions. No cervical or supraclavicular lymphadenopathy. LUNG: Clear to auscultation bilaterally. HEART: Regular rate and rhythm without murmur. ABDOMEN: Soft, currently nontender in the upper abdomen. She has some mild tenderness to palpation in the lower abdomen. Bowel sounds are present. EXTREMITIES: No lower extremity edema. RECTAL: Reveals light brown stool in the rectal vault, scant amount. LABORATORY DATA: Creatinine 0.69, calcium last night on presentation to the ER was 13.3, down to 12.5 today. Bilirubin 1.3, AST 39, ALT 9, alkaline phosphatase 215, albumin 4.6. IMPRESSION: 1. Acute hypercalcemia resulting in nausea and vomiting over the last week. 2. Apparently metastatic endometrial cancer to liver and lung. Further consideration of related hypercalcemia is also considered. 3. Hematemesis, consistent with a Janine-Teixeira tear. She has no further signs of overt bleeding. She has light brown stool in rectal vault. There is no need for endoscopy acutely at this time. We will just cover her with proton pump inhibitor. It is noted that she has been taking NSAIDs as well and could have gastritis or peptic ulcer contributing as well. 4. Anemia. She has a chronic microcytic anemia. Her hemoglobin since December has been in the 8 to 9 range. No acute change with this hospitalization. RECOMMENDATIONS: 1. We will add a lipase to the admission labs since hypercalcemia can be associated with pancreatitis and she has had the nausea, vomiting and epigastric pain. 2. Proton pump inhibitor twice daily. 3. IV fluids. 4. Recheck the trend of her hemoglobin and calcium levels. Job ID: [id number]
[2019-04-07] MEDS: Dextrose 5 % And 0.9 % NaCl 1,000 ML IV SCH ×4 (03:47→22:37)
[2019-04-07 08:18] LABS: #Lymphocytes 2.5 thou/uL (1.20-3.40); #Monocytes 1.1 thou/uL (0.11-0.59); #Neutrophils 7.5 thou/uL (1.40-6.50); %Basophils 0.4 % (0.0-1.0); %Eosinophils 0.2 % (0.0-10.0); %Lymphocytes 22.5 % (21.0-51.0); %Monocytes 9.4 % (0.0-10.0); %Neutrophils 67.5 % (42.0-75.0); Hemoglobin 8.9 g/dL (12.0-16.0); Mean Corpuscular HGB CONC 30.2 g/dL (32.0-36.0); Mean Corpuscular Volume 69.3 fL (78.0-98.0); Mean Platelet Volume 8.1 fL (7.4-10.4); Platelet Count 603 thou/uL (130-400); RBC Distribution Width 16.9 % (11.5-14.5); Red Blood Cell (RBC) Count 4.23 mill/uL (4.20-5.40); White Blood Cell (WBC) Count 11.1 thou/uL (4.8-10.8)
[2019-04-07 08:19] LABS: INR-International Normal Ratio 1.3; PTT 45.5 SEC (22.9-36.1); Prothrombin Time 15.8 SEC (12.0-14.7)
[2019-04-07 08:35] LABS: ALT (SGPT) 10 U/L (8-55); AST (SGOT) 51 U/L (5-34); Alkaline Phosphatase 210 U/L (40-150); Anion Gap 15 mmol/L (10-20); BUN (Urea Nitrogen) 5 mg/dL (7.0-18.7); Bilirubin, Total 0.8 mg/dL (0.2-1.2); Calc. Creatinine Clearance 306 mL/min (70-130); Calcium 11.1 mg/dL (7.8-10.44); Carbon Dioxide 19 mmol/L (22-29); Chloride 106 mmol/L (98-107); Estimated GFR-MDRD Greater than 90; Globulin 4.1 g/dL (2.4-3.5); Glucose 86 mg/dL (70-105); Potassium 3.5 mmol/L (3.5-5.1); Protein, Total 8.1 g/dL (6.0-8.3); Sodium 136 mmol/L (136-145)
[2019-04-07 08:37] LABS: Phosphorus Less than 1.0 mg/dL (2.3-4.7)
[2019-04-07] MEDS: Pantoprazole 40 MG VIAL IVP SCH ×2 (08:45→21:10)
[2019-04-07] MEDS ORDERED: PHOS-NAK 1 PKT PACK PO SCH (09:00)
[2019-04-07] MEDS ORDERED: Calcitonin,Salmon,Synthetic 200 UNITS/ML SC ONE (09:45)
[2019-04-07] MEDS ORDERED: Midazolam HCl 2 mg/2 ml Vial ONE (10:39)
[2019-04-07] MEDS ORDERED: Fentanyl 100 MCG/2 ML VIAL ONE (10:39)
[2019-04-07] MEDS ORDERED: Sodium Bicarbonate 2.5 MEQ/5 ML VIAL ONE (10:48)
--- NOTE | 2019-04-07 11:10 | PRG ---
DATE OF SERVICE: 04/07/2019 SUBJECTIVE: Patient was seen and examined at bedside and overnight events noted. Patient denies any shortness of breath or chest pain or palpitation. No history of nausea or vomiting or diarrhea or fever or chills or cramps. OBJECTIVE: GENERAL: This is a well-built female, in no apparent distress. VITAL SIGNS: Temperature 98.7. Heart rate 85. Respiratory rate 20. Blood pressure 144/67. HEENT: Atraumatic, normocephalic. Oral mucosa is moist. NECK: Supple. CARDIOVASCULAR: S1, S2 heard. Rate and rhythm regular. RESPIRATORY: Clear to auscultation. GASTROINTESTINAL: Abdomen is soft. MUSCULOSKELETAL: No tenderness. No edema. DERMATOLOGIC: No skin rash. NEUROLOGIC: Alert and awake and oriented X3. No focal neurologic deficits. Moving all the extremities. PSYCHIATRIC: Mood and affect normal. LABORATORY DATA: Potassium is 3.5, BUN is 5, creatinine is 0.6, calcium is 11.1, phosphorus 1.7. ASSESSMENT AND PLAN: 1. Hypercalcemia, seems to be malignancy related. We will give another dose of calcitonin. Continue IV fluids at various rate and monitor calcium. PTH is low. PTH-related peptide is pending. Follow up with DIRECTOR OF PUBLIC RELATIONS too. 2. Endometrial cancer. Follow with DIRECTOR OF PUBLIC RELATIONS. 3. Hyponatremia. 4. Elevated liver enzymes. Hypophosphatemia. Replace and monitor. 5. Vitamin D deficiency. 6. Prognosis guarded. Monitor calcium. We will follow. Job ID: [id number]
[2019-04-07] MEDS: Acetaminophen 500 MG TAB PO PRN ×2 (13:23→19:37)
[2019-04-07 14:51] LABS: Reference Lab Name LABCORP
--- NOTE | 2019-04-07 15:03 | PRG ---
DATE OF SERVICE: 04/07/2019 SUBJECTIVE: Scottie has had no further nausea or vomiting today. No overt bleeding. Her hemoglobin is stable. She did have a liver biopsy today. OBJECTIVE: VITAL SIGNS: Temperature 98.5, pulse 84, and blood pressure 142/69. GENERAL: She is in no acute distress. Alert and oriented x3. LUNGS: Clear to auscultation bilaterally. HEART: Regular rate and rhythm. ABDOMEN: Soft, nontender, and nondistended. Bowel sounds are present. EXTREMITIES: No lower extremity edema. LABORATORY DATA: Her calcium is 11.1 today. Hemoglobin 8.9. IMPRESSION: 1. Nausea and vomiting, likely secondary to hypercalcemia. 2. Hematemesis and epigastric abdominal pain. She most likely had a Janine-Teixeira tear secondary to the vomiting and retching and she has had no significant overt ongoing bleeding with that. Endoscopy should not be required at this point. 3. Metastatic uterine cancer. RECOMMENDATIONS: 1. Proton pump inhibitor daily orally. 2. Regular diet. 3. I will sign off. Please call if GI can be of assistance. Job ID: [id number]
--- NOTE | 2019-04-07 15:26 | CT ---
CT GUIDED LIVER BIOPSY: Date: 04/07/19 HISTORY: Endometrial cancer with presumed liver and lung metastases. FINDINGS: Successful CT guided biopsy. A total of two 18 gauge core biopsy samples were obtained. Lesional tiss ue is present. TECHNIQUE: Consent obtained to perform a CT guided biopsy of the liver. The patient was placed in a supine posit ion on the CT gantry. Area of concern was identified. Skin was prepped and draped in the sterile [facility] ion. 1% lidocaine, buffered with sodium bicarbonate, was used for local anesthesia. Under CT guidance , a 17 gauge metallic trocar was advanced into the liver. Through this trocar, two 18 gauge core biop sy samples were obtained. Lesional tissue was present. There were no immediate or postprocedure compl ications. Postprocedure scan does not demonstrate any significant intrahepatic or perihepatic hematom a. IMPRESSION: Successful CT guided biopsy. Lesional tissue is present. Final pathologic diagnosis is pending. POS: OFF
--- NOTE | 2019-04-07 22:37 | PDOC.HOSPP ---
- Subjective Subjective: Feeling some better. Nausea is improved. She still has no appetite. - Objective Vital Signs & Weight: Vital Signs (12 hours) Temp Pulse Resp BP Pulse Ox 04/07/19 19:55 98.8 F 101 H 16 170/80 H 98 04/07/19 15:40 98.8 F 95 18 147/69 H 99 04/07/19 14:40 98.3 F 93 20 165/76 H 100 04/07/19 13:40 98.5 F 84 16 142/69 H 100 04/07/19 13:10 98.8 F 85 16 133/61 98 04/07/19 12:40 98 F 85 16 122/58 L 100 04/07/19 12:25 97.8 F 87 18 128/65 98 04/07/19 12:10 98.5 F 85 16 123/61 98 04/07/19 11:55 98.5 F 88 16 133/64 97 Weight Admit Weight 336 lb 11.2 oz Weight 336 lb 11.2 oz I&O: 04/06/19 04/07/19 04/08/19 06:59 06:59 06:59 Intake Total 861 2404 960 Output Total 400 800 Balance 461 1604 960 Result Diagrams: 04/07/19 07:52 04/07/19 07:52 ROS - Medication Medications: Active Medications Generic Name Dose Route Start Last Admin Trade Name Freq PRN Reason Stop Dose Admin Acetaminophen 1,000 mg 04/07/19 12:15 04/07/19 19:37 Tylenol PO 1,000 mg Q4H PRN Administration Mild Pain (1-3) Calcium Carbonate 1,000 mg 04/06/19 07:55 04/07/19 21:10 Tums PO 1,000 mg Q4H PRN Administration Heartburn or Indigestion Dextrose/Sodium Chloride 1,000 mls @ 100 mls/hr 04/07/19 10:26 04/07/19 12:53 D5 0.9% Ns IV 1,000 mls .Q10H SWETA Administration Morphine Sulfate 2 mg 04/06/19 22:05 04/07/19 22:30 Morphine SLOW IVP 2 mg Q2H PRN Administration Moderate to Severe Pain (4-10) Ondansetron HCl 4 mg 04/06/19 07:55 04/07/19 15:55 Zofran Odt PO 4 mg Q6H PRN Administration Nausea/Vomiting Ondansetron HCl 4 mg 04/06/19 07:55 04/06/19 22:08 Zofran IVP 4 mg Q6H PRN Administration Nausea/Vomiting Pantoprazole Sodium 40 mg 04/06/19 09:00 04/07/19 21:10 Protonix IVP 40 mg Q12HR SWETA Administration - Exam NAD General - other findings: Morbidly obese. Neck: supple, symmetric, no JVD, no thyromegaly, no lymphadenopathy, no carotid bruit Heart: RRR, no murmur, no gallops, no rubs, normal peripheral pulses Respiratory: CTAB, no wheezes, no rales, no ronchi, normal chest expansion, no tachypnea, normal percussion Gastrointestinal: soft, non-tender, non-distended, normal bowel sounds, no palpable masses, no hepatomegaly, no splenomegaly, no bruit Skin: normal turgor, no lesions, no rashes Neurological: CN's grossly intact, normal sensation to touch, no weakness, no focal deficits, no new deficit Hosp A/P (1) Hypercalcemia Code(s): E83.52 - HYPERCALCEMIA Status: Acute (2) Nausea & vomiting Code(s): R11.2 - NAUSEA WITH VOMITING, UNSPECIFIED Status: Acute (3) Endometrial cancer Code(s): C54.1 - MALIGNANT NEOPLASM OF ENDOMETRIUM Status: Acute (4) Hypophosphatemia Code(s): E83.39 - OTHER DISORDERS OF PHOSPHORUS METABOLISM Status: Acute (5) Hematemesis Code(s): K92.0 - HEMATEMESIS Status: Resolved Plan: Suspected MW tear. (6) Abdominal pain Code(s): R10.9 - UNSPECIFIED ABDOMINAL PAIN Status: Resolved - Plan Suspect she has PTH like substance from the cancer. Has had calcitonin and the calcium is improving. PO phos. Follow labs. IVF.
[2019-04-08] MEDS: Acetaminophen 500 MG TAB PO PRN ×4 (00:06→20:33)
[2019-04-08] MEDS: Morphine 2 MG/ML SYRINGE SLOW IVP PRN ×4 (00:06→13:27)
[2019-04-08] MEDS: Ondansetron PF 4 MG/2 ML Vial IVP PRN ×2 (04:14→16:11)
[2019-04-08 04:51] LABS: ALT (SGPT) 9 U/L (8-55); AST (SGOT) 48 U/L (5-34); Albumin 3.8 g/dL (3.5-5.0); Alkaline Phosphatase 219 U/L (40-150); Anion Gap 14 mmol/L (10-20); BUN (Urea Nitrogen) 4 mg/dL (7.0-18.7); Bilirubin, Total 0.9 mg/dL (0.2-1.2); Calc. Creatinine Clearance 338 mL/min (70-130); Calcium 10.8 mg/dL (7.8-10.44); Carbon Dioxide 21 mmol/L (22-29); Chloride 107 mmol/L (98-107); Estimated GFR-MDRD Greater than 90; Globulin 4.1 g/dL (2.4-3.5); Glucose 78 mg/dL (70-105); Potassium 3.7 mmol/L (3.5-5.1); Protein, Total 7.9 g/dL (6.0-8.3); Sodium 138 mmol/L (136-145)
[2019-04-08 04:55] LABS: Phosphorus Less than 1.0 mg/dL (2.3-4.7)
[2019-04-08] MEDS ORDERED: Potassium Phosphate 21 MMOL in Sodium Chloride 0.9% 250 ML 250 ML IVPB SCH (06:30)
[2019-04-08] MEDS: Pantoprazole 40 MG VIAL IVP SCH ×2 (07:22→20:33)
[2019-04-08] MEDS: PHOS-NAK 1 PKT PACK PO SCH ×3 (09:54→20:33)
[2019-04-08] MEDS ORDERED: Zoledronic Acid 4 MG in Sodium Chloride 0.9% 100 ML IVPB SCH (10:15)
--- NOTE | 2019-04-08 11:46 | PRG ---
DATE OF SERVICE: 04/08/2019 SUBJECTIVE: Patient was seen and examined at bedside and overnight events noted. Patient denies any shortness of breath or chest pain or palpitation. No history of nausea or vomiting or diarrhea or fever or chills or cramp. OBJECTIVE: GENERAL: This is an obese female, in no apparent distress. VITAL SIGNS: pulse 89, blood pressure 131/61. HEENT: Atraumatic, normocephalic. Oral mucosa is moist NECK: Supple. CARDIOVASCULAR: S1, S2 heard. Rate and rhythm regular. RESPIRATORY: Clear to auscultation. GASTROINTESTINAL: Abdomen is soft. MUSCULOSKELETAL: No tenderness. No edema. DERMATOLOGIC: No skin rash. NEUROLOGIC: Alert and awake and oriented X3. No focal neurologic deficits. Moving all the extremities. PSYCHIATRIC: Mood and affect normal. LABORATORY DATA: Potassium is 3.7, BUN is 4, creatinine is 0.7, calcium is 10.8, phosphorus was normal. ASSESSMENT AND PLAN: 1. Hypercalcemia, getting better. We will give a dose of Zometa. 2. cancer. 3. Hyponatremia, stable. 4. Hypophosphatemia, replaced. 5. Vitamin D deficiency. 6. Plan is to give a dose of Zometa. Continue hydration as tolerated. We will follow. Job ID: [id number]
[2019-04-08] MEDS ORDERED: Calcitonin,Salmon,Synthetic 200 UNITS/ML SC ONE (12:00)
[2019-04-08] MEDS ORDERED: Bisacodyl 10 MG SUPP PR PRN (12:46)
[2019-04-08] MEDS ORDERED: Polyethylene Glycol 3350 17 GM Packet PO PRN (12:46)
[2019-04-08] MEDS ORDERED: Polyethylene Glycol 3350 17 GM Packet PO SCH (13:00)
[2019-04-08] MEDS: Dextrose 5 % And 0.9 % NaCl 1,000 ML IV SCH ×2 (14:21→17:39)
[2019-04-08 15:10] LABS: Kappa Lambda Light Chain Ratio 1.14 (0.26-1.65); Kappa Light Chains 21.2 mg/L (3.3-19.4); Lambda Light Chain 18.6 mg/L (5.7-26.3)
[2019-04-08] MEDS ORDERED: Morphine 2 MG/ML SYRINGE SLOW IVP PRN (16:08)
--- NOTE | 2019-04-08 16:19 | PDOC.HOSPP ---
- Subjective Subjective: Complains of constipation. Has some abdominal and pelvic discomfort that she related to constipation. Still not significant appetite. - Objective Vital Signs & Weight: Vital Signs (12 hours) Temp Pulse Resp BP BP Pulse Ox 04/08/19 12:43 98.1 F 101 H 16 146/69 H 97 04/08/19 08:26 98.0 F 89 16 131/61 97 04/08/19 08:00 97 Weight Admit Weight 336 lb 11.2 oz Weight 336 lb 11.2 oz I&O: 04/07/19 04/08/19 04/09/19 06:59 06:59 06:59 Intake Total 2404 960 Output Total 800 Balance 1604 960 Result Diagrams: 04/07/19 07:52 04/08/19 03:45 ROS - Medication Medications: Active Medications Generic Name Dose Route Start Last Admin Trade Name Freq PRN Reason Stop Dose Admin Acetaminophen 1,000 mg 04/07/19 12:15 04/08/19 13:26 Tylenol PO 1,000 mg Q4H PRN Administration Mild Pain (1-3) Bisacodyl 10 mg 04/08/19 12:46 04/08/19 13:27 Dulcolax TN 10 mg Q8H PRN Administration Constipation Calcium Carbonate 1,000 mg 04/06/19 07:55 04/07/19 21:10 Tums PO 1,000 mg Q4H PRN Administration Heartburn or Indigestion Zoledronic Acid 4 mg/ Sodium 100 mls @ 400 mls/hr 04/08/19 10:15 04/08/19 13: 26 Chloride IVPB 04/08/19 21:00 100 mls ONE SWETA Administration Dextrose/Sodium Chloride 1,000 mls @ 75 mls/hr 04/08/19 10:53 04/08/19 14:21 D5 0.9% Ns IV Not Given .[id number] SWETA Miscellaneous Medication 1 pkt 04/08/19 09:00 04/08/19 09:54 Phos-Nak PO 1 pkt TID SWETA Administration Ondansetron HCl 4 mg 04/06/19 07:55 04/07/19 15:55 Zofran Odt PO 4 mg Q6H PRN Administration Nausea/Vomiting Ondansetron HCl 4 mg 04/06/19 07:55 04/08/19 16:11 Zofran IVP 4 mg Q6H PRN Administration Nausea/Vomiting Pantoprazole Sodium 40 mg 04/06/19 09:00 04/08/19 07:22 Protonix IVP 40 mg Q12HR SWETA Administration - Exam NAD, awake alert General - other findings: Morbidly obese. Heart: RRR, no murmur, no gallops, no rubs, normal peripheral pulses Respiratory: CTAB, no wheezes, no rales, no ronchi, normal chest expansion, no tachypnea, normal percussion Gastrointestinal: soft, non-distended, normal bowel sounds, no palpable masses, no hepatomegaly, no splenomegaly Extremities: no edema Skin: normal turgor Neurological: CN's grossly intact, no focal deficits Hosp A/P (1) Hypercalcemia Code(s): E83.52 - HYPERCALCEMIA Status: Acute (2) Nausea & vomiting Code(s): R11.2 - NAUSEA WITH VOMITING, UNSPECIFIED Status: Acute (3) Endometrial cancer Code(s): C54.1 - MALIGNANT NEOPLASM OF ENDOMETRIUM Status: Acute (4) Hypophosphatemia Code(s): E83.39 - OTHER DISORDERS OF PHOSPHORUS METABOLISM Status: Acute (5) Hematemesis Code(s): K92.0 - HEMATEMESIS Status: Resolved (6) Abdominal pain Code(s): R10.9 - UNSPECIFIED ABDOMINAL PAIN Status: Resolved - Plan Suspect she has PTH like substance from the cancer. Has had calcitonin and the calcium is improving. nephrology ordered Zometa today. PO phos again today. Follow labs. IVF. Miralax, Dulcolax. Increase pain meds.
[2019-04-08] MEDS: Morphine 4 MG/ML VIAL SLOW IVP PRN ×2 (16:26→20:33)
[2019-04-08] MEDS ORDERED: Fleet Enema 133 ML BOT PR SCH (16:30)
[2019-04-08] MEDS ORDERED: Metoclopramide HCl 10 MG/2 ML VIAL IVP PRN (18:51)
[2019-04-09] MEDS: Morphine 4 MG/ML VIAL SLOW IVP PRN ×3 (00:24→11:12)
[2019-04-09] MEDS: PHOS-NAK 1 PKT PACK PO SCH (08:21)
[2019-04-09] MEDS: Pantoprazole 40 MG VIAL IVP SCH (08:21)
[2019-04-09] MEDS: Dextrose 5 % And 0.9 % NaCl 1,000 ML IV SCH (08:21)
[2019-04-09 08:25] VITALS: BP 138/70; TEMP 98.3
--- NOTE | 2019-04-09 11:14 | PRG ---
DATE OF SERVICE: 04/09/2019 SUBJECTIVE: Patient was seen and examined at bedside and overnight events noted. Patient denies any shortness of breath or chest pain or palpitation. No history of nausea or vomiting or diarrhea or fever or chills or cramps. OBJECTIVE: GENERAL: This is a morbidly obese female, in no apparent distress. VITAL SIGNS: Temperature 98.3. Heart rate 107. Respiratory rate 18. Blood pressure 138/70. HEENT: Atraumatic, normocephalic. Oral mucosa is moist NECK: Supple. CARDIOVASCULAR: S1, S2 heard. Rate and rhythm regular. RESPIRATORY: Clear to auscultation. GASTROINTESTINAL: Abdomen is soft. MUSCULOSKELETAL: No tenderness. No edema. DERMATOLOGIC: No skin rash. NEUROLOGIC: Alert and awake and oriented X3. No focal neurologic deficits. Moving all the extremities. PSYCHIATRIC: Mood and affect normal. LABORATORY DATA: Pending. ASSESSMENT AND PLAN: 1. Hypercalcemia, most likely secondary to malignancy. PTH-related peptide is pending. PTH level was low. 2. Endometrial cancer. 3. Hyponatremia. 4. Hypophosphatemia. Replace. 5. Vitamin D deficiency. 6. Zometa was given yesterday, and status post calcitonin and IV fluids. Repeat calcium level. We will follow. Job ID: [id number]
[2019-04-09 12:34] LABS: Anion Gap 15 mmol/L (10-20); BUN (Urea Nitrogen) 6 mg/dL (7.0-18.7); Calc. Creatinine Clearance 357 mL/min (70-130); Calcium 10.1 mg/dL (7.8-10.44); Carbon Dioxide 22 mmol/L (22-29); Chloride 103 mmol/L (98-107); Estimated GFR-MDRD Greater than 90; Glucose 81 mg/dL (70-105); Potassium 4.1 mmol/L (3.5-5.1); Sodium 136 mmol/L (136-145)
--- NOTE | 2019-04-09 22:12 | DIS ---
DATE OF ADMISSION: 04/06/2019 DATE OF DISCHARGE: 04/09/2019 DISCHARGE DIAGNOSES: 1. Endometrial cancer with suspected metastases to the lung and the liver. 2. Severe hypercalcemia. 3. Nausea and vomiting. 4. Upper gastrointestinal bleed, likely due to Janine-Teixeira tear. 5. Hypophosphatemia. 6. Abdominal pain. 7. Constipation. 8. Elevated LFTs. 9. Hyponatremia. 10. Dehydration. 11. Metabolic acidosis. 12. Morbid obesity. HISTORY OF PRESENT ILLNESS: This patient is a 33-year-old obese female with endometrial cancer with suspected metastases to the liver and to the lungs. The patient presented via the emergency department complaining of nausea and vomiting for 4 to 5 days. The patient had been unable to keep anything down. She reported some coffee-ground emesis as well. Her workup in the emergency department was most notable for calcium of 13.3. CT scan of the abdomen and pelvis showed endometrial cancer with hepatic hypodensities and retroperitoneal and pelvic lymphadenopathy. The patient was subsequently admitted to the hospital. HOSPITAL COURSE: The patient was admitted to the hospital and started aggressively on IV hydration. Nephrology was consulted and she was given calcitonin x3 subcu and then subsequently Zometa with that her calcium levels continued to decline. She also was noted to have substantial low phosphorus and was given p.o. phosphate for repletion. The patient's upper gastrointestinal bleed symptoms were assessed by GI. It was felt that her findings were likely related to Janine-Teixeira tear from vomiting and no further workup was indicated at that time. She was placed on PPI. She had no further symptoms subsequently. The patient's oncologist was notified at the time of patient's admission. He recommended a biopsy of the liver lesions, which was undertaken with CT guidance , the results of which are still pending. The patient's nausea largely improved as her calcium came down. She did develop abdominal cramping type pain. This was initially felt to be more related to the endometrial cancer, but ultimately appeared to be related to constipation. The patient received several cathartic medications and was able to successfully have a bowel movement, which did improve her pain somewhat. With the patient's pain manageable, nausea and vomiting resolved, and poor but adequate p.o. intake of fluids and calcium level that was improving, she was felt to be stable for discharge to home. PHYSICAL EXAMINATION: VITAL SIGNS: On the day of discharge, temperature is 98.3, pulse 107, respirations 18, O2 saturation 98% on room air, and BP 138/70. GENERAL APPEARANCE: Morbidly obese age-appropriate female, awake and alert, in no distress. HEART: Regular. Borderline tachycardic. No murmurs noted. LUNGS: Clear to auscultation bilaterally with good chest wall expansion and air exchange. No wheezes or rales. ABDOMEN: Morbidly obese, soft, nontender, and nondistended. Positive bowel sounds. No masses. EXTREMITIES: No cyanosis, clubbing, or edema. DISPOSITION: The patient is discharged to home. DISCHARGE MEDICATIONS: She will be on, 1. Tylenol No. 3 one p.o. q.4 hours p.r.n. pain. 2. Tums 1000 mg p.o. q.4 hours. 3. Phosphorus sodium one packet t.i.d. 4. MiraLAX p.r.n. 5. Senokot S daily. 6. Lisinopril HCTZ one p.o. daily. 7. Megace 80 mg b.i.d. 8. Albuterol p.r.n. 9. Midol p.r.n. DISCHARGE INSTRUCTIONS: The patient is to have a regular diet. Her activity level is as tolerated. She is to follow up at the [facility], as well as her oncologist at [facility] next week. She can return to the hospital should she have any problems prior to that time. Time spent in discharge activities, including face to face time with the patient , was 40 min. Job ID: [id number] [facility]
== END 2019-04-09 14:28 | disposition home or self-care (01) | DRG 640 ==
LOC: ERS 23:20 → 3SE 04-06 01:00 → ONC 04-07 11:18
PROVIDERS: ADMIT Hospitalist; ATTEND Hospitalist
PROC: 0FB03ZX Excision of Liver, Percutaneous Approach, Diagnostic (ICD-10-PCS; principal; 2019-04-07)
DX: E83.52 Hypercalcemia (principal); K22.6 Gastro-esophageal laceration-hemorrhage syndrome; C78.00 Secondary malignant neoplasm of unspecified lung; C78.7 Secondary malignant neoplasm of liver and intrahepatic bile duct; Z68.43 Body mass index [BMI] 50.0-59.9, adult; E87.1 Hypo-osmolality and hyponatremia; E87.2 Acidosis; C54.1 Malignant neoplasm of endometrium; I10 Essential (primary) hypertension; E66.01 Morbid (severe) obesity due to excess calories; K59.00 Constipation, unspecified; E86.0 Dehydration; E55.9 Vitamin D deficiency, unspecified; E83.39 Other disorders of phosphorus metabolism; Z79.899 Other long term (current) drug therapy; Z79.1 Long term (current) use of non-steroidal anti-inflammatories (NSAID)
CPT/HCPCS: 36415; 47000; 71045; 74019; 77012; 80048; 80053; 81001; 82306; 82330; 82550; 82652; 83690; 83735; 83883; 83970; 84100; 84484; 84703; 85014; 85018; 85025; 85049; 85610; 85730; 86850; 86900; 86901; 88307; 88333; 88341; 88342; 88360; 88361; 93005; 96361; 96374; 96375; C9113; J0630; J2250; J2270; J2405; J2765; J3010; J3489; J3490; J7050; Q0162

== ENCOUNTER 2019-04-25 15:21 | Inpatient (IN) | payer MEDICAID, SELFPAY ==
[~2019-04-25 15:21] MED LIST: ISOVUE-370 76%-LOCM 1 ML ONE
[2019-04-25 16:17] LABS: Hemoglobin 7.2 g/dL (12.0-16.0); Mean Corpuscular HGB CONC 29.6 g/dL (32.0-36.0); Mean Corpuscular Hemoglobin 19.8 pg (27.0-31.0); Mean Corpuscular Volume 66.8 fL (78.0-98.0); Mean Platelet Volume 9.2 fL (7.4-10.4); Platelet Count 628 thou/uL (130-400); RBC Distribution Width 18.6 % (11.5-14.5); Red Blood Cell (RBC) Count 3.63 mill/uL (4.20-5.40); White Blood Cell (WBC) Count 16.4 thou/uL (4.8-10.8)
[2019-04-25 16:21] LABS: PTT 87.3 SEC (22.9-36.1)
[2019-04-25 16:22] LABS: Prothrombin Time 108.9 SEC (12.0-14.7)
[2019-04-25 16:30] LABS: INR-International Normal Ratio 15.2
[2019-04-25 16:35] LABS: Anisocytosis SLIGHT = 6-15 cells (100X) (0-5/hpf); Band 1 % (5-11); Hypochromia SLIGHT = 6-15 cells (100X) (0-5/hpf); Lymphocytes 26 % (21-51); MDiff Complete? YES; Microcytosis SLIGHT = 6-15 cells (100X) (0-5/hpf); Monocytes 4 % (0-10); Neutrophil 69 % (42-75); Nucleated RBC 9 % (0); Ovalocytes SLIGHT = 2-5 cells (100X) (0-1/hpf); Platelet Morphology Comment Appears Increased; Poikilocytosis SLIGHT = 6-15 cells (100X) (0-5/hpf); Polychromasia MODERATE = 3-4 cells (100X) (0-2/hpf); Target Cells SLIGHT = 2-5 cells (100X) (0-1/hpf)
[2019-04-25 16:36] LABS: Bacteria/HPF None Seen HPF (None Seen); Bilirubin 1+ (Negative); Blood, Urine Negative (Negative); Clarity Clear (Clear); Glucose, Urine (Dipstick) Normal (Negative); Leukocyte Negative Leu/uL (Negative); Nitrite Negative (Negative); Protein, Urine (Dipstick) 30 mg/dL (Neg-Trace); RBC/HPF 0-3 HPF (0-3); Squamous Epithelial 0-3 HPF (0-3); Urobilinogen 6 mg/dL (Less than 2); WBC/HPF 0-3 HPF (0-3)
[2019-04-25 16:37] LABS: ALT (SGPT) 59 U/L (8-55); AST (SGOT) 261 U/L (5-34); Alkaline Phosphatase 727 U/L (40-150); Anion Gap 30 mmol/L (10-20); BUN (Urea Nitrogen) 19 mg/dL (7.0-18.7); Bilirubin, Total 2.8 mg/dL (0.2-1.2); Calc. Creatinine Clearance 0 mL/min (70-130); Carbon Dioxide 14 mmol/L (22-29); Chloride 96 mmol/L (98-107); Estimated GFR-MDRD Greater than 90; Glucose 77 mg/dL (70-105); Lipase 69 U/L (8-78); Potassium 3.9 mmol/L (3.5-5.1); Sodium 136 mmol/L (136-145)
[2019-04-25 16:39] LABS: Bicarbonate (HCO3v) 14.1 mmol/L (22.0-28.0); CO2 Tension (PvCO2) 21.5 mmHg (40.0-50.0); Calcium, Ionized 1.36 mmol/L (See Comments:); Chloride 102 mmol/L (98-107); Potassium 3.7 mmol/L (3.5-5.1); Sodium 136 mmol/L (138-145); T. Carbon Dioxide 14.7 mmol/L (22.0-28.0); vO2 Saturation-calc 98.4 % (60.0-85.0)
[2019-04-25 16:42] LABS: Calcium 12.4 mg/dL (7.8-10.44)
[2019-04-25 17:14] LABS: Pregnancy Test - Urine (BHCG) Negative (Negative)
[2019-04-25 17:15] LABS: Pregu Control Background? CLEAR/WHITE (CLR/WHITE); Pregu Control Bar Appear? YES (CONTROL BAR); Specific Gravity 1.025 (1.002-1.036)
[2019-04-25] MEDS ORDERED: Tranexamic Acid 1,000 MG in Sodium Chloride 0.9% 100 ML IVPB SCH (17:30)
[2019-04-25] MEDS ORDERED: Phytonadione 10 MG/ML AMP SLOW IVP SCH (17:30)
[2019-04-25] MEDS ORDERED: Phytonadione 10 MG/ML AMP ONE (17:53)
[2019-04-25] MEDS ORDERED: Guaifenesin DM 100-10/5 ML UDCUP PO PRN (18:10)
[2019-04-25] MEDS ORDERED: Acetaminophen 325 MG TAB PO PRN (18:10)
[2019-04-25] MEDS ORDERED: Morphine 4 MG/ML VIAL ONE (18:16)
[2019-04-25] MEDS ORDERED: Ondansetron PF 4 MG/2 ML Vial ONE (18:19)
[2019-04-25 18:44] LABS: Fibrinogen 441 mg/dL (253-463)
[2019-04-25 18:45] LABS: Prothrombin Time 39.8 SEC (12.0-14.7)
[2019-04-25 18:46] LABS: D-Dimer Test 1.62 *mcg/mL (0.27-0.43); PTT 63.3 SEC (22.9-36.1)
[2019-04-25 18:58] LABS: ALT (SGPT) 54 U/L (8-55); AST (SGOT) 253 U/L (5-34); Albumin 3.8 g/dL (3.5-5.0); Alkaline Phosphatase 642 U/L (40-150); Anion Gap 26 mmol/L (10-20); BUN (Urea Nitrogen) 17 mg/dL (7.0-18.7); Bilirubin, Total 2.9 mg/dL (0.2-1.2); Calc. Creatinine Clearance 0 mL/min (70-130); Carbon Dioxide 16 mmol/L (22-29); Chloride 99 mmol/L (98-107); Estimated GFR-MDRD Greater than 90; Globulin 3.1 g/dL (2.4-3.5); Glucose 65 mg/dL (70-105); Protein, Total 6.9 g/dL (6.0-8.3); Sodium 137 mmol/L (136-145)
[2019-04-25 18:59] LABS: INR-International Normal Ratio 4.2
[2019-04-25] MEDS ORDERED: HUM PROTHROMBIN CPLX IV SCH (19:00)
[2019-04-25] MEDS ORDERED: HUM PROTHROMBIN CPLX(PCC)4FACT 1,000 UNIT in Admixture Fee 1 EACH IV SCH (19:00)
[2019-04-25] MEDS ORDERED: [UNRECOGNIZED DRUG - OTHER] IV SCH (19:00)
[2019-04-25] MEDS ORDERED: ADMIXTURE FEE IV SCH (19:00)
[2019-04-25 19:01] LABS: Hemoglobin 7.5 g/dL (12.0-16.0); Mean Corpuscular HGB CONC 30.9 g/dL (32.0-36.0); Mean Corpuscular Hemoglobin 21.5 pg (27.0-31.0); Mean Corpuscular Volume 69.5 fL (78.0-98.0); Mean Platelet Volume 8.9 fL (7.4-10.4); Platelet Count 484 thou/uL (130-400); RBC Distribution Width 19.7 % (11.5-14.5); Red Blood Cell (RBC) Count 3.48 mill/uL (4.20-5.40); White Blood Cell (WBC) Count 13.6 thou/uL (4.8-10.8)
[2019-04-25 19:07] LABS: Platelet Count 499 thou/uL (130-400)
[2019-04-25] MEDS ORDERED: Cefepime 2 GM VIAL ONE (19:09)
[2019-04-25] MEDS ORDERED: Sodium Chloride 0.9% 100 ML ONE (19:09)
[2019-04-25 19:10] LABS: FSP-Qualitative Normal (Normal)
[2019-04-25 19:14] LABS: Anisocytosis SLIGHT = 6-15 cells (100X) (0-5/hpf); Band 2 % (5-11); Hypochromia SLIGHT = 6-15 cells (100X) (0-5/hpf); Lymphocytes 20 % (21-51); MDiff Complete? YES; Microcytosis SLIGHT = 6-15 cells (100X) (0-5/hpf); Monocytes 6 % (0-10); Neutrophil 72 % (42-75); Nucleated RBC 1 % (0); Ovalocytes SLIGHT = 2-5 cells (100X) (0-1/hpf); Platelet Morphology Comment Appears Increased; Target Cells SLIGHT = 2-5 cells (100X) (0-1/hpf)
[2019-04-25] MEDS ORDERED: Zoledronic Acid 4 MG in Sodium Chloride 0.9% 100 ML IVPB SCH (19:15)
--- NOTE | 2019-04-25 19:45 | CT ---
CT CHEST WITH CONTRAST: CT ABDOMEN WITH CONTRAST: CT PELVIS WITH CONTRAST: HISTORY: Hypertension. Liver and uterine cancer. The patient has not undergone treatment. Weakness and fati mary. COMPARISON: 04/07/2019 and 03/28/2019 FINDINGS: CHEST: No mediastinal mass, lymphadenopathy, or hematoma. Heart size is within normal limits. No p ericardial effusion. The visualized aorta has a normal caliber. No periaortic fat stranding. The trachea and central bronchi are patent. There are dependent atelectatic changes. There is a nod ule in the left upper lobe, measuring 0.9 x 0.8 cm. There is a pleural-based opacity in the left upp er lobe, measuring 1.4 x 0.5 cm. There is a nodule in the superior segment of the left lower lobe me asuring 0.5 x 0.5 cm. There is a 0.3 cm nodule in the superior segment of the right lower lobe. No pleural effusion or pneumothorax. ABDOMEN: Redemonstration of extensive hepatic metastases. The gallbladder is surgically absent. St able enhancement of the spleen, adrenal glands, and pancreas. Symmetric enhancement of the kidneys. No mesenteric free air or free fluid. There is evidence of mesenteric adenopathy, measuring 1.5 x 1.0 cm. Enlarged subcentimeter aortocava l and periaortic lymph nodes. Additional enlarged aortocaval lymph node measures 1.8 x 1.2 cm. Ther e is evidence of lymphadenopathy along the left and right common iliac chain. Left iliac chain lymph node measures 1.4 x 1.4 cm. Right iliac chain lymph node measures 1.5 x 2.7 cm. There is an enlarg ed left periaortic lymph node, measuring 2.2 x 1.7 cm. Limited evaluation of the alimentary canal by the lack of oral contrast. No evidence of bowel obstru ction. The ileocecal junction is unremarkable. Normal caliber appendix. The colon is unremarkable. PELVIS: An intrauterine device is identified. There is enlargement of the uterus with a large mixed attenuation mass, similar to the previous examination. There does appear to be worsening central ne crosis. This mass measures 11.7 x 10.6 cm. There is evidence of a soft tissue mass in the right hem ipelvis, which may represent conglomeration of metastatic lymph nodes, measuring 8.6 x 6.2 cm. This conglomeration of abnormal soft tissue has increased. Previously, this region measured 4.9 x 4.0 cm . There is evidence of bilateral external iliac lymphadenopathy. A left external iliac lymph node thuy ures 2.6 x 2.1 cm. Additional enlarged lymph nodes are noted. The number of lymph nodes is similar to the previous examination. OSSEOUS STRUCTURES: No lytic or blastic lesions. IMPRESSION: 1. Multiple lung parenchymal nodules, compatible with pulmonary metastases. 2. Heterogeneous appearance of the liver, compatible with the patient's known history of hepatic met astases. 3. Extensive intraabdominal and pelvic lymphadenopathy, compatible with metastases. 4. Enlarging soft tissue mass in the right hemipelvis, which is presumed to be due to metastases. T he possibility of an ovarian-based pathology cannot be entirely excluded. 5. Enlarged heterogeneous uterus, compatible with the patient's history of uterine cancer. POS: PPP
--- NOTE | 2019-04-25 20:20 | ULT ---
PELVIC ULTRASOUND: HISTORY: Uterine cancer. COMPARISON: None. TECHNIQUE: Transabdominal imaging of the pelvis is performed. FINDINGS: An enlarged heterogeneous uterus is identified. Limited evaluation due to body habitus and technique . Uterus measurements are at least 17.2 x 10.1 x 11.5 cm. An intrauterine device is noted. Soft tissue densities in the left and right adnexae may represent a combination of ovary, as well as adjacent lymphadenopathy. There is vascular flow to the presumed ovaries. Questionable left ovary m easures 3.9 x 2.2 x 2.8 cm. Questionable right ovary with associated lymphadenopathy measures 4.5 x 4.5 x 8 cm. IMPRESSION: 1. Limited evaluation due to body habitus. 2. Enlarged uterus with probable right and questionable left adnexal lymphadenopathy. POS: PPP
[2019-04-25 20:23] LABS: Lactic Acid 8.3 mmol/L (0.5-2.2)
[2019-04-25 20:45] VITALS: BMI 54.4
--- NOTE | 2019-04-25 21:51 | HP ---
REASON FOR ADMISSION: Coagulopathy, possible acute blood loss anemia, rectal bleed, neuroendocrine endometrial cancer with multiple METS, possible sepsis, elevated liver enzymes, metabolic acidosis, hypercalcemia, vaginal bleeding with history of cancer. HISTORY OF PRESENT ILLNESS: The patient gives history of feeling very weak and she could not move. She in fact fell in the restroom. She also mentions that she was constipated and has been having rectal bleeding from last 2 days. She also mentions that she has had vaginal bleeding off and on with history of endometrial cancer. She has seen Dr. Calvin, Oncologist at [facility] one time and has not followed up again. On arrival in ER, the patient was found to have had INR of 15, hemoglobin of 7, PT 108, PTT 87, bicarb of 14, calcium 12.4, T-bilirubin 2.8, AST 261, ALT 59, alkaline phosphatase 727. She was immediately given vitamin K 10 mg IV push, a dose of tranexamic acid IV, 1 g, 3 L of IV fluids, 2 units of packed cell, 2 units of FFP. Subsequently, the patient had a CT of the chest, abdomen and pelvis done to rule out bleeding and was negative for any bleed. Has abdominal pain, which is generalized with 4 to 5/10 in intensity, has felt nauseous and has not been able to keep any solid food down. She manages to drink 2 cans of Ensure. PAST MEDICAL AND SURGICAL HISTORY: Diagnosis of endometrial cancer in January 2019 , CT-guided liver biopsy done shows neuroendocrine tumor of endometrial etiology. She has metastasis to liver and lungs, which has been present from January 2019, hypertension, morbid obesity. The patient states all her Pap smears right from 2016 has been abnormal. She has an intrauterine device mirena placed for contraception/cancer, cholecystectomy. CURRENT MEDICATIONS: 1. Lisinopril 10 mg daily. 2. [id number] pain medications. 3. She was on hormonal therapy, but developed swelling of her legs and nausea and this was discontinued from early part of this month. ALLERGIES: TO PEANUTS. OTHERWISE, NO KNOWN DRUG ALLERGIES. PERSONAL HISTORY: Does not abuse alcohol or drugs. No history of smoking. FAMILY HISTORY: Mother is here at bedside. She states she is healthy. Father has a history of prostate cancer. CODE STATUS: Full. Power of defense attorney is her mother, Ms. Mccracken, number to reach her is [phone]. REVIEW OF SYSTEMS: CONSTITUTIONAL: Negative for weight loss or gain, ability to conduct usual activities. SKIN: Negative for rash, itching. EYES: Negative for double vision, pain. ENT/MOUTH: Negative for nose bleeding, neck stiffness, pain, tenderness. CARDIOVASCULAR: Negative for palpitations, dyspnea on exertion, orthopnea. RESPIRATORY: Negative for shortness of breath, wheezing, cough, hemoptysis, fever or night sweats. GASTROINTESTINAL: Negative for poor appetite, abdominal pain, heartburn, nausea , vomiting, constipation, or diarrhea. GENITOURINARY: Negative for urgency, frequency, dysuria, nocturia. MUSCULOSKELETAL: Negative for pain, swelling. NEUROLOGIC/PSYCHIATRIC: Negative for anxiety, depression. ALLERGY/IMMUNOLOGIC: Negative for skin rash, bleeding tendency. PHYSICAL EXAMINATION: GENERAL: The patient is a 33-year-old female, who is currently lethargic. VITAL SIGNS: On arrival, blood pressure was 200/102, subsequently the blood pressure is 170/96, pulse 130 per minute, respiratory rate 26 per minute, temperature 98.7 degrees Fahrenheit, saturating 98% on room air. NECK: Supple. No elevated JVD. HEENT: Eyes; extraocular muscles intact. Pupils reacting to light. Oral cavity, mucous membranes are dry. No exudates or congestion. CARDIOVASCULAR: S1 and S2 heard. Tachycardic. RESPIRATORY: Air entry 1+ bilateral. No rales or rhonchi. ABDOMEN: Tender to deep palpation in all 4 quadrants. No rigidity or guarding. Bowel sounds are heard. EXTREMITIES: No peripheral edema or calf tenderness. VASCULAR SYSTEM: Peripheral pulses 1+ in the upper extremities. Lower extremities barely palpable. No ischemic ulcers or gangrene. CENTRAL NERVOUS SYSTEM: No gross focal deficits noted. The patient is alert, awake, and oriented well. PSYCHIATRIC: The patient's mood is euthymic. No hallucinations or delusions. LABORATORY DATA: White count of 16, H and H 7 and 24, platelet count 628, MCV 66 with 69% neutrophils. Initial INR was 15.2 at around 4:00 p.m. A subsequent repeat INR done at 6:30 is 4.2, PTT 87, repeat PTT 63. Initial PT was 108, subsequent was 39.8. Fibrin degradation products are normal. D-dimer 1.62, fibrinogen 441. Venous blood gas done shows a pH of 7.42, pCO2 21, PO2 105, serum bicarb was 14 , BUN 19, creatinine 0.7, calcium is 12.4, albumin is 4.0, total bilirubin 2.8, AST is 261, ALT 59, alkaline phosphatase 727, albumin is 4.0, and lipase is 69. One set of troponin is negative. Lactic acid 12.5, a repeat was 8.3. UA shows no sign of UTI. Urine test was negative. PTH related peptide was less than 2 pmol/L, which is normal, this was on 04/07/2019. CT chest, abdomen and pelvis with contrast done shows multiple lung parenchymal nodules compatible with pulmonary metastasis, heterogenous appearance of the liver compatible with the patient's known history of hepatic metastasis, extensive intraabdominal and pelvic lymphadenopathy compatible with metastasis, enlarging soft tissue mass in the right hemipelvis, which is presumed to be metastasis and large heterogeneous uterus compatible with the patient's history of uterine cancer. The patient had a complete pelvic ultrasound done, was limited due to body habitus. There is an enlarged uterus with probable right and questionable left adnexal lymphadenopathy. CLINICAL IMPRESSION AND PLAN: The patient will be admitted to ICU for severe coagulopathy on arrival with repeat INR being 4.2, after 2 hours repeat lab. By then, the patient had received 2 units of packed cells. We will give her a dose of zoledronic acid for hypercalcemia. The patient has already received 2 units of FFPs, a dose of vitamin K IV and tranexamic acid in the ER. Dr. Gonzalez, OB/ PASTE UP ARTIST APPRENTICE has evaluated the patient in the ER and official consult report is yet to appear on the [facility]. I have consulted Dr. Martinez, Dr. Moses, and Dr. Paredes for Critical Care, Nephrology and GI consultations. We will obtain a repeat CBC and metabolic panel in the morning. We will place her on clear liquid diet. The patient's overall prognosis is very poor with multiple metastasis. Her coagulopathy is likely related to liver metastasis. She also has enlarged spleen along with multiple metastases in the abdomen in addition to enlarged uterus and mets to lungs as well. It is unclear if her hypercalcemia is related to bone METS. We will consult Dr. Reynaldo Gordillo to see if there is any option left for her given her current condition. There is no gynecologic DURABLE MEDICAL EQUIPMENT TECHNICIAN in the area. I have discussed code status with the patient's mother and the patient. They are clearly aware of grave prognosis. They would still want to be full code for now. We will also place Palliative Care consultation. Job ID: [id number] MTDD
[2019-04-25] MEDS: Morphine 2 MG/ML SYRINGE SLOW IVP PRN (23:34)
[2019-04-26 00:24] LABS: Hemoglobin 7.3 g/dL (12.0-16.0)
[2019-04-26 00:26] LABS: INR-International Normal Ratio 1.6; Prothrombin Time 19.4 SEC (12.0-14.7)
--- NOTE | 2019-04-26 01:01 | CON ---
DATE OF CONSULTATION: 04/25/2019 CHIEF COMPLAINT: Vaginal bleeding and endometrial cancer. HISTORY OF PRESENT ILLNESS: The patient is a 33-year-old female, presenting to the emergency room for weakness and fatigue. The patient reports she fell on the way to the bathroom and was unable to get up on her own. She has a recent diagnosis of endometrial cancer, grade 2 endometrioid adenocarcinoma and was treated initially by Dr. Swift with a Mirena IUD and Megace and subsequently referred to Medical Oncology here in [facility]. In addition, the patient has been diagnosed with what appears to be multiple metastatic lesions including liver lesions that have been biopsied as being high-grade metastasis involving neuroendocrine changes. During her evaluation today, the patient reports that she has been having vaginal bleeding since starting Megace, requiring pad changes about 4 or 5 times a day. Pt discontinued magace 1-2wks ago per Dr Swift's orders. She does not report any acute increase in her bleeding, but does state that she has been having rectal bleeding she attributes to constipation, for which the last few days she has replaced her nighttime menstrual pads with moistened hand towels. The patient reports that she has a baseline anemia, for which she has been seeing her primary provider. She also reports that she has not yet established care with an Oncologist here in [facility]. During her workup in the emergency room, the patient was noted to have an INR of 15, lactic acid of 12. HANDHOLE MACHINE OPERATOR was consulted for concerns of her vaginal bleeding as a possible source for her coagulopathy. During my interview and evaluation of the patient in the emergency room, the patient on exam was noted to have an essentially no bleeding over the 3 hours that she had been without any pad or protection. PAST MEDICAL HISTORY: 1. 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 2. A high-grade metastatic lesion in the liver with neuroendocrine changes. 3. Hypertension. 4. Chronic back pain. 5. Morbid obesity. PAST SURGICAL HISTORY: Cholecystectomy. SOCIAL HISTORY: The patient is a former smoker, quit more than 10 years ago. Reports social drinking about twice a month. ALLERGIES: no known drug allergies THOUGH DOES HAVE AN ALLERGY TO PEANUTS AND SHELLFISH, WITH PEANUTS CAUSING ITCHING. CURRENT MEDICATIONS: Lisinopril 10 mg daily. PHYSICAL EXAMINATION: VITAL SIGNS: Blood pressure 197/104, pulse of 124, respiratory rate of 24, saturating 98% on room air. GENERAL: At the time of my evaluation, the patient was alert, oriented, cooperative, and pleasant to interact with and did not appear to be in any acute distress. The patient receiving blood. : Again, on evaluation of her perineum, she was essentially free of any active bleeding. LABORATORY DATA: White count 16.4, hemoglobin 7.2, hematocrit 24.2, and platelets of 628,000. PT 108, INR 15, PTT 87, fibrinogen 441, fibrin split products normal. D-dimer 1.62. Sodium of 136, potassium of 3.9, BUN of 19, creatinine of 0.79. Lactic acid of 12. Troponins less than 0.10. The patient is receiving fresh frozen plasma blood at the time of my evaluation. Repeat lab work shows a lactic acid down to 8.3, INR of 4.2, PT of 39.8, PTT of 63.3. A CT of the abdomen, chest, and pelvis shows multiple lung parenchymal nodules compatible with pulmonary metastasis, heterogeneous appearance of the liver compatible with the patient's known history of hepatic metastasis, extensive intraabdominal and pelvic lymphadenopathy, enlarging soft tissue mass in the right hemipelvis and large heterogeneous uterus compatible with the patient's history of uterine cancer. ASSESSMENT AND PLAN: The patient is a 33-year-old female with known uterine cancer, which is likely metastatic to the liver and lungs versus a secondary primary given the neuroendocrine change. I did speak to providers at [facility] in [place] where she had received her primary diagnosis and in reviewing Dr. Swift's notes , Dr. Swift had mentioned that he recommended that she receive chemotherapy here with Medical Oncologist in [facility], and also did report a very poor prognosis if these high-grade lesions with neuroendocrine changes are metastasic from the uterus. The patient does not have any acute bleeding that is of primary concern at this time. She is receiving treatment to reverse this coagulopathy. It is likely secondary to liver disease. I would recommend consultations with Medical Oncology, where a proper treatment plan can be established. We can continue assisting on her care as necessary and will be available for from a distance. Job ID: [id number] MTDD
[2019-04-26 05:46] LABS: INR-International Normal Ratio 1.4; Prothrombin Time 17.3 SEC (12.0-14.7)
[2019-04-26 06:04] LABS: Anion Gap 21 mmol/L (10-20); BUN (Urea Nitrogen) 11 mg/dL (7.0-18.7); Calc. Creatinine Clearance 323 mL/min (70-130); Calcium 10.8 mg/dL (7.8-10.44); Carbon Dioxide 21 mmol/L (22-29); Chloride 99 mmol/L (98-107); Estimated GFR-MDRD Greater than 90; Potassium 3.5 mmol/L (3.5-5.1); Sodium 137 mmol/L (136-145)
[2019-04-26 06:11] LABS: Glucose 57 mg/dL (70-105)
[2019-04-26 06:21] LABS: Hemoglobin 7.4 g/dL (12.0-16.0); Hypochromia SLIGHT = 6-15 cells (100X) (0-5/hpf); Lymphocytes 16 % (21-51); MDiff Complete? YES; Mean Corpuscular HGB CONC 29.7 g/dL (32.0-36.0); Mean Corpuscular Hemoglobin 20.8 pg (27.0-31.0); Mean Platelet Volume 8.9 fL (7.4-10.4); Microcytosis SLIGHT = 6-15 cells (100X) (0-5/hpf); Monocytes 4 % (0-10); Neutrophil 80 % (42-75); Nucleated RBC 3 % (0); Platelet Count 477 thou/uL (130-400); Platelet Morphology Comment Appears Increased; RBC Distribution Width 19.2 % (11.5-14.5); Red Blood Cell (RBC) Count 3.55 mill/uL (4.20-5.40); Target Cells SLIGHT = 2-5 cells (100X) (0-1/hpf); White Blood Cell (WBC) Count 13.3 thou/uL (4.8-10.8)
[2019-04-26] MEDS ORDERED: Dextrose 5% in Water 1,000 ML IV PRN (06:37)
[2019-04-26] MEDS: Dextrose 5 % And 0.9 % NaCl 1,000 ML IV SCH (06:44)
[2019-04-26] MEDS: Morphine 2 MG/ML SYRINGE SLOW IVP PRN ×3 (06:57→23:45)
[2019-04-26] MEDS ORDERED: Prevnar 13-Val Conj/PF 0.5 ML SYRINGE IM ONE (09:00)
[2019-04-26] MEDS ORDERED: Phytonadione 10 MG/ML AMP PO SCH (09:00)
--- NOTE | 2019-04-26 10:06 | PDOC.PALCO ---
Palliative Care Consult - Consult Details Requesting Physician: Dr Alex Reason for Consult: goals of care, advance directives assistance Family Members Present: Aunt - Pertinent HPI 33 year old female who presented to the emergency room with constipation and rectal bleeding x 2 days, weakness and decreased ability to "move". History in emergency room also showed recent vaginal bleeding. Patient was diagnosed with endometrial cancer. CT in emergency room identified liver mets and lungs that has been present since January 2019. - Pertinent PMH Diagnosed with endometrial cancer in January with mets to liver and lungs. Morbid obesity - Social History Smoking Status: Never smoker Smoking: no tobacco exposure Alcohol Use: none Drug Use History: none Living Situation: independent - Medications MAR Reviewed: Yes - Allergies Allergies/Adverse Reactions: Allergies Allergy/AdvReac Type Severity Reaction Status Date / Time shellfish derived Allergy Severe Short of Verified 04/25/19 21:03 Breath peanut Allergy Hives Verified 04/06/19 03:06 - Subjective Awake, alert, generalized weakness. Mild nausea with poor appetite. No complaints of pain at time of assessment. ROS: 10 point review of systems negative other than the above mentioned. - Objective Vital Signs: Vital Signs - Most Recent Temp Pulse Resp BP Pulse Ox 98.7 F 110 H 17 181/96 H 98 04/26/19 07:00 04/26/19 07:36 04/26/19 07:36 04/25/19 20:15 04/26/19 07:37 Palliative Performance Scale: 60 - Physical Exam Constitutional: NAD HEENT: moist MMs, EOMI Respiratory: unlabored breathing Musculoskeletal: edema present Neurological: moves all 4 limbs Deviation from normal: Depressed Skin: no rash, normal turgor - Problem List (1) Palliative care encounter Code(s): Z51.5 - ENCOUNTER FOR PALLIATIVE CARE Current Visit: Yes Status: Acute (2) Morbid obesity Code(s): E66.01 - MORBID (SEVERE) OBESITY DUE TO EXCESS CALORIES Current Visit : Yes Status: Acute (3) Endometrial cancer Code(s): C54.1 - MALIGNANT NEOPLASM OF ENDOMETRIUM Current Visit: No Status : Acute - Plan/Recommendations Plan: Initial visit with patient. Discussed cancer, diagnosis, and patient understanding. Ms Rubin states that the information is confusing, lacking understanding of impact on health status. Patient lives by herself and plans on moving in with her parents. 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 Overwhelmed with diagnosis. *Palliative care will educate patient in relation to where her cancer is located and health implications *Discuss "what" patient wants to do in relation to activities/things that bring her deanne *Follow up after Dr Gordillo to assist further in identifying goals of care in relation to cancer and metastasis. *Conversation in relation to code status, providing information [90] minutes spent on this encounter with >50% of the time in counseling and coordination of care. Thank you for this very appropriate consult.
--- NOTE | 2019-04-26 10:50 | PDOC.HOSPP ---
- Subjective Encounter Date: 04/26/19 Encounter Time: 08:35 Subjective: awake, oriented well no sob, abd pain is better no bleeding per rectum, mild spotting from vagina - Objective Vital Signs & Weight: Vital Signs (12 hours) Temp Pulse Resp Pulse Ox 04/26/19 07:37 98 04/26/19 07:36 110 H 17 04/26/19 07:00 98.7 F 04/26/19 00:00 99 F 04/25/19 23:41 113 H 17 100 Weight Weight 327 lb 6.183 oz Most Recent Monitor Data Heart Rate from ECG 122 NIBP 164/95 NIBP BP-Mean 118 Respiration from ECG 17 SpO2 96 I&O: 04/25/19 04/26/19 04/27/19 06:59 06:59 06:59 Intake Total 1600 480 Output Total 1655 350 Balance -55 130 Result Diagrams: 04/26/19 05:22 04/26/19 05:22 Additional Labs: Accuchecks 04/26/19 04/26/19 04/25/19 10:15 06:46 23:36 POC Glucose 81 73 68 L ROS - Medication Medications: Active Medications Generic Name Dose Route Start Last Admin Trade Name Freq PRN Reason Stop Dose Admin Dextrose/Sodium Chloride 1,000 mls @ 50 mls/hr 04/26/19 06:45 04/26/19 06:44 D5 0.9% Ns IV 1,000 mls .Q20H SWETA Administration Sodium Chloride 10 ml 04/25/19 18:10 04/25/19 23:35 Flush - Normal Saline IVF 10 ml PRN PRN Administration Saline Flush - Exam NAD, awake alert Eye: PERRL, anicteric sclera ENT: no oropharyngeal lesions, dry oral mucosa Neck: supple, no JVD Heart: RRR, no murmur Respiratory: no wheezes, no rales Gastrointestinal: soft, normal bowel sounds, no guarding, no rigidity Extremities: no cyanosis, no edema Neurological: CN's grossly intact, no focal deficits Psychiatric: normal affect, A&O x 3 Hosp A/P (1) Coagulopathy Status: Resolved (2) Acute blood loss anemia Code(s): D62 - ACUTE POSTHEMORRHAGIC ANEMIA Status: Resolved (3) Metabolic acidosis Code(s): E87.2 - ACIDOSIS Status: Acute (4) Morbid obesity Code(s): E66.01 - MORBID (SEVERE) OBESITY DUE TO EXCESS CALORIES Status: Chronic Plan: bmi of 54 (5) Endometrial cancer Code(s): C54.1 - MALIGNANT NEOPLASM OF ENDOMETRIUM Status: Chronic Plan: diagnosed in January 2019 with mets to liver and lungs (6) Hypercalcemia Code(s): E83.52 - HYPERCALCEMIA Status: Acute (7) Nausea & vomiting Code(s): R11.2 - NAUSEA WITH VOMITING, UNSPECIFIED Status: Acute Qualifiers: Vomiting Intractability: intractable (8) Abdominal pain Code(s): R10.9 - UNSPECIFIED ABDOMINAL PAIN Status: Resolved - Plan coagulopathy is corrected, recieved 2 u prbc and 3 u ffp's yesterday inr is 1.4 this am, was 15 on arrival has multiple mets in liver likely cause of coagulopathy await onc opinion if she has any options/hospice eval recieved one dose zoledronic acid yesterday poor prognosis encourage po intake, ensure cans, to mobilize with PT as tolerated Has enlarged uterus with necrotic mass, multiple lymph nodes in abd/periaortic, multiple mets in liver likely mets in lungs as well. Oral iron, iv iron daily x 3 doses, procardial xl, lasix for htn is hemostable now, tx to onc floor.
[2019-04-26] MEDS ORDERED: Fleet Enema 133 ML BOT PR PRN (11:46)
[2019-04-26] MEDS ORDERED: NIFEdipine XL 60 MG TAB PO SCH (11:46)
[2019-04-26] MEDS: Ondansetron PF 4 MG/2 ML Vial IVP PRN ×2 (11:59→19:17)
--- NOTE | 2019-04-26 12:00 | CON ---
DATE OF CONSULTATION: HISTORY OF PRESENT ILLNESS: Leela Rubin is a 33-year-old morbidly obese, female, unfortunate situation. She is 148 kg. Presented with weakness and concern vomiting. There was some concern she had hematochezia and vaginal bleeding. She apparently has a Mirena IUD in place. She was recently seen at [facility] in [place] with a diagnosis of metastatic uterine cancer, neuroendocrine, was made. She apparently was told to start treatment somewhere in [facility] after she established herself. Former smoker, quit 10 years ago. Minimal smoking at all. No prior history of pneumonia, TB, or asthma. PAST MEDICAL HISTORY: Hypertension, morbid obesity, and endometrial cancer with extensive metastatic disease. PAST SURGICAL HISTORY: Cholecystectomy, liver biopsy. HOME MEDICATION: Apparently, lisinopril. Recently discharged from the hospital no more than 2 weeks ago with severe hypercalcemia, hypophosphatemia, abnormal LFTs, extensive liver metastases. She was given several doses of calcitonin for hypercalcemia. Her imaging studies done on 04/25 shows multiple lung nodules and multiple liver metastases, extensive intraabdominal adenopathy, mass enlarging from the right hemipelvis. ALLERGIES: PEANUT, SHELLFISH. REVIEW OF SYSTEMS: Otherwise, negative. PHYSICAL EXAMINATION: GENERAL: Morbidly obese female, appears to be in no distress. VITAL SIGNS: Blood pressure is 173/84, pulse 114, saturations 98% on room air, and respirations 18. CHEST: Decreased breath sounds. No wheezing. CARDIAC: Normal S1 and S2. No gallops. ABDOMEN: Massive, but appears to be soft. EXTREMITIES: No edema. NEUROLOGIC: Awake, alert, and responsive, otherwise unremarkable. LABORATORY DATA: White count 13,000, H and H of 7 and 24, and platelet count 477. INR was 15 yesterday, this morning 1.4. She was given vitamin K. Her calcium is elevated at 10.4. Lactic acid 8.3. Glucose 57. Lytes were normal. Renal function was normal. ASSESSMENT AND PLAN: Extensive metastatic disease to lung and liver secondary to uterine endometrial cancer, morbid obesity, hypertension, prolonged PT/INR secondary to extensive liver metastases. She is stable from the Pulmonary standpoint, I feel Pulmonary has nothing to offer at this stage. Unfortunately, she need to seen by Oncology. Try and correct hypercalcemia with hydration. She may need Zometa for hypercalcemia. Await input from Oncology. Consultation note, 70 minutes, 50% direct patient care. Job ID: [id number]
[2019-04-26] MEDS ORDERED: Iron, Sodium Ferric Gluconate 250 MG in Sodium Chloride 0.9% 100 ML IVPB SCH (12:30)
--- NOTE | 2019-04-26 13:14 | CON ---
DATE OF CONSULTATION: REASON FOR CONSULTATION: Hypercalcemia. HISTORY OF PRESENT ILLNESS: A 33-year-old female, admitted for coagulopathy, was noted to have a calcium of 11. The patient got Zomig with improvement in calcium and the patient has a neuroendocrine tumor. The patient denies no headache, numbness, tingling, or weakness. Denies any nausea, vomiting, or chest pain. PAST MEDICAL HISTORY: Significant for endometrial cancer, neuroendocrine tumor metastases to liver and lungs, morbid obesity, and cholecystectomy. MEDICATIONS: Home medications list reviewed. Hospital medication list reviewed. ALLERGIES: REVIEWED. REVIEW OF SYSTEMS: A 15-point review of systems was performed, negative except for positives noted above. GENERAL: HEAD: NECK: No swelling or lumps. NOSE: No epistaxis or discharge. EYES: No diplopia or pain. RESPIRATORY: CARDIOVASCULAR: GASTROINTESTINAL: /STOCK AND STATION AGENT: MUSCULOSKELETAL: No joint pain. NEUROPSYCHIATIC SYSTEMS: No suicidal ideation. No ideation. SKIN: Denies any rash or ulcer. CONSTITUTIONAL: No fever or chills. PHYSICAL EXAMINATION: CONSTITUTIONAL: The patient is awake and alert. VITAL SIGNS: Shows pulse 120, breathing 16, blood pressure 174/88. GENERAL APPEARANCE AND MENTAL STATUS: Fair. HEAD/NECK: Normocephalic. Atraumatic. EYES: EOMI. No deformity. EARS: Clear. No ulcers. NOSE: Intact. No lesions. MOUTH: Clear. No discharge. THROAT: Clear. No exudate. LUNGS: Clear. No crackles. CARDIAC: S1, S2. No rub. ABDOMEN: Benign. Bowel sounds positive. GENITALIA/RECTUM: Mitchell absent. BACK/EXTREMITIES: Edema 0+. NEUROLOGICAL: Alert and motor intact. SKIN: LYMPHATICS: LABORATORY DATA: Labs reviewed. ASSESSMENT AND PLAN: 1. Chronic kidney disease stage 1 stable. 2. Hypercalcemia. Agree with Zomig and hydration. 3. Elevated lactic acid. Would recommend evaluation for ischemic bowel. Overall prognosis is poor. Her calcium has improved. Continue hydration and please reconsult as needed. Overall prognosis is poor. Job ID: [id number]
[2019-04-26] MEDS ORDERED: Iron Dextran 500 MG in Sodium Chloride 0.9% 250 ML 250 ML IVPB SCH (13:15)
[2019-04-26] MEDS: Promethazine HCl 25 MG/ML VIAL IM/IV PRN ×2 (13:26→20:26)
--- NOTE | 2019-04-26 13:44 | CON ---
DATE OF CONSULTATION: 04/26/2019 REASON FOR CONSULTATION: Hematochezia. CONSULTING PHYSICIAN: Lester Alex MD HISTORY OF PRESENT ILLNESS: The patient is a 33-year-old female with past medical history of endometrial cancer, that was diagnosed in January 2019 with neuroendocrine component and metastatic disease to the liver and lungs, hypertension, and morbid obesity, presenting with complaints of hematochezia. The patient has been undergoing treatment as part of the management of her endometrial cancer and has been receiving chemotherapy for her metastatic disease. However, she experienced increased weakness and inability to rise from a lying to sitting position approximately 2 days ago, that ultimately prompted her to seek healthcare assistance. During the course of the interview, she was noted to have a mild decrease in her H and H as well as complaints of hematochezia. Upon further questioning the patient, she said that approximately two days ago, she began having increased constipation characterized as rock/pebble-like stools that were difficult to pass, that required increased straining and manual disimpaction in order to facilitate defecation. She states that with it is harder to pass stools, they were associated with minimal amounts of bright red blood per rectum that was present primarily on the stool, but sometimes mixed in with the stool with a "grainy" type appearance. She does endorse increased right lower quadrant abdominal pain and nausea that has been present since her diagnosis of endometrial cancer in January 2019, that is unchanged to both location type and severity. Upon further questioning the patient, she stated that she had been taking codeine up until about a week ago as part of management for her right lower quadrant abdominal pain with the appearance of constipation, shortly after discontinuation. She currently denies any vomiting, fevers, chills, hematemesis, melena, dysphagia, odynophagia, or diarrhea. She denies a family history of either colon polyps or a colon cancer, and has never had a colonoscopy herself. REVIEW OF SYSTEMS: A 10-category review of systems was obtained with all responses negative, except for the pertinent positives as listed in the HPI. PAST MEDICAL HISTORY: As per HPI. PAST SURGICAL HISTORY: Pap smears, placement of an IUD, cholecystectomy. FAMILY HISTORY: Denies any GI malignancies. SOCIAL HISTORY: Denies any tobacco, alcohol, or illicit drug use. OUTPATIENT MEDICATIONS: Lisinopril 10 mg daily, Megace, Tylenol No.3. ALLERGIES: PEANUTS. PHYSICAL EXAMINATION: VITAL SIGNS: Temperature 98.7, pulse 123, blood pressure 174/88, respiratory rate 22, saturating 98% on room air. GENERAL: The patient was sitting in a chair at bedside, in no acute distress. Alert and oriented x4. HEENT: Normocephalic and atraumatic. No JVD or scleral icterus noted. CARDIOVASCULAR: Tachycardic rate, but regular rhythm. No discernible murmurs, gallops, or rubs. RESPIRATORY: Clear to auscultation bilaterally with no discernible wheezes or rales. ABDOMEN: Hypoactive bowel sounds. Soft, tender to palpation in the right flank, right lower quadrant and suprapubic regions. EXTREMITIES: No cyanosis, clubbing, or edema. LABORATORY DATA: CBC with a white blood cell count of 13.3, hemoglobin 7.4, hematocrit 24.8, platelets 477. INR 1.4, but the INR on admission was 15. Chemistry with a sodium of 137, potassium 3.5, chloride 99, CO2 of 21, BUN 11, creatinine 0.58, glucose 57, AST 253, ALT 54, alkaline phosphatase 642, total bilirubin 2.9. IMAGING DATA: CT of the abdomen and pelvis was obtained on April 25, 2019, which showed a left upper lobe nodule measuring 0.9 x 0.8 cm as well as a pleural-based opacity in the left upper lobe measuring 1.4 x 0.5 cm. She had nodules located within the left lower lobe and right lower lobe, extensive hepatic metastatic disease was seen throughout the liver in addition to the pulmonary nodules. Cholecystectomy changes were also noted. Extensive mesenteric adenopathy was also seen with multiple intra-abdominal lymph nodes seen during this exam. An enlarged uterus with large mixed attenuated mass measuring 11.7 x 10.6 cm was also seen along with a conglomeration of lymph nodes within the right hemipelvis. ASSESSMENT AND PLAN: The patient is a 33-year-old female with past medical history of morbid obesity, hypertension, and endometrial cancer with neuroendocrine component with metastatic disease to the liver and lungs, presenting with hematochezia most likely secondary to constipation. Hematochezia. The patient was diagnosed with endometrial cancer with neuroendocrine component in January 2019 after discovery of metastatic disease to the liver with the onset of right-sided/lower abdominal pain. Liver biopsy was performed on April 07, 2019, which confirmed the presence of the near endocrine component most likely from the endometrial primary malignancy. She has subsequently been placed on multiple narcotic medications and more recently had been experiencing increased constipation characterized as Ward type 1 stool consistencies requiring increased straining and manual disimpaction in order to facilitate defecation. With the onset of the manual disimpaction and it is harder to pass stools, it has manifested as well with hematochezia characterized as bright red blood per rectum with the blood primarily coating the stool and the blood only appearing with these harder to pass stools. With the onset of a significantly elevated INR on this admission, she could have bled from any mucosal surface; however, based on her current H and H that have been stable over the last 24 hours and per clinical history, this appears to be either hemorrhoidal bleeding or possible stercoral colitis, further complicated by the significantly elevated INR. RECOMMENDATIONS: 1. Would continue to trend her H and H and transfuse as necessary to maintain an H and H of 7/21. 2. Continue to monitor clinically for signs of active GI bleeding (not experienced thus far while during this hospitalization). 3. Would place the patient on a bowel regimen to facilitate passage of the school and prevent from hemorrhoidal flares and/or stercoral colitis. 4. Endoscopic evaluation with colonoscopy is not indicated at this time given the patient's poor prognosis and would not change her current management. We will continue to follow. Please call with any questions. Job ID: [id number]
[2019-04-26] MEDS: Furosemide 20 MG TAB PO SCH (14:07)
[2019-04-26] MEDS: Bisacodyl 10 MG SUPP PR PRN (15:33)
[2019-04-26] MEDS ORDERED: Polyethylene Glycol 3350 17 GM Packet ONE (15:34)
[2019-04-26] MEDS: Polyethylene Glycol 3350 17 GM Packet PO SCH (15:39)
[2019-04-26] MEDS ORDERED: Sodium Chloride 0.65% Nasal 44 ML BOT EA NARE PRN (17:24)
[2019-04-26] MEDS: Ferrous Sulfate 325 MG TAB PO SCH (17:27)
[2019-04-26] MEDS: Metoclopramide 10 MG/10 ML UDCUP PO SCH ×2 (17:27→21:26)
[2019-04-26] MEDS: Pantoprazole 40 MG VIAL IVP SCH (20:33)
[2019-04-26] MEDS ORDERED: Polyethylene Glycol 3350 17 GM Packet PO SCH (21:00)
[2019-04-26] MEDS: Docusate 100 MG CAP PO SCH (21:26)
--- NOTE | 2019-04-27 00:03 | CON ---
DATE OF CONSULTATION: REASON FOR CONSULT: Endometrial cancer. HISTORY OF PRESENT ILLNESS: Ms. Rubin is a 33-year-old female who underwent a uterine biopsy by Dr. Peng in January of 2019. She was diagnosed with endometrial cancer. She then was seen by Marcy Swift in March of 2019 and started on megestrol. She was to follow up in several months, but began to have shortness of breath and presented to this facility in late March or early April. She had a CT scan at that time, which showed liver and lung lesions. She underwent a CT-guided biopsy of the liver on April 07. Path returned metastatic carcinoma with neuroendocrine features, it was high-grade with Ki67 of 44%. She was to follow up with Medical Oncology, but had not done so yet when she returned to this facility with weakness and bleeding. On admission, her INR was 15.2. She was given FFP and vitamin K. Her hemoglobin was 7.2, and she was transfused 2 units. She states her bleeding has significantly improved. We are asked to see the patient regarding treatment options. Patient complains of weakness and abdominal pain. She states she has a poor appetite and has lost 25 pounds over the last month. Her calcium was elevated on admission and she was given a dose of zoledronic acid. Her bilirubin was 2.9 and she was jaundiced. PAST MEDICAL HISTORY: Endometrial cancer. PAST SURGICAL HISTORY: CT-guided liver biopsy, Pap smear, cholecystectomy, and IUD placement. ALLERGIES: NO KNOWN DRUG ALLERGIES. HOME MEDICATIONS: 1. Lisinopril/hydrochlorothiazide daily. 2. Tylenol No. 3 daily. 3. MiraLAX daily. 4. Senokot daily. 5. Megestrol. FAMILY HISTORY: Patient's father had prostate cancer. SOCIAL HISTORY: Single. No children. Lives with her mother. REVIEW OF SYSTEMS: A 10-point review of systems is negative, except for noted in HPI. PHYSICAL EXAMINATION: VITAL SIGNS: 98.7, pulse is 119, respiratory rate 18, BP is 153/70, and she is 95% on room air. GENERAL: This is a morbidly obese female in no acute distress. HEENT: Normocephalic, atraumatic. Pupils are equal and reactive to light. Sclerae are anicteric. NECK: Supple. CV: Regular rate and rhythm. She has tachycardia. LUNGS: Diminished throughout. ABDOMEN: Obese. Bowel sounds are positive. EXTREMITIES: No clubbing, cyanosis, or edema. SKIN: No rash. HEMATOLOGICAL: No petechiae or purpura. NEUROLOGICAL: Nonfocal. PSYCH: She is alert, oriented, and appropriate. PERTINENT LABS AND X-RAYS: Current WBCs 13.3, hemoglobin 7.4, hematocrit 24.8, platelet count is 477,000, 80% neutrophils, and 16% lymphocytes. PT 17.3 and INR is 1.4. Sodium is 137, potassium 3.5, chloride 99, CO2 is 21, BUN is 11, creatinine is 0.58, and calcium is 10.8. Lactic acid is 8.3, bilirubin is 2.9, AST is 253, ALT is 54, and alk phos is 642. Troponin is negative. Serum total protein is 6.9, albumin 3.8, globulin 3.1. ASSESSMENT: 1. Metastatic carcinoma with neuroendocrine features. 2. Hyperbilirubinemia, likely from liver infiltration. 3. Morbid obesity. DISCUSSION: Patient will need chemotherapy. This can be done in the outpatient setting. Unfortunately, she is uninsured, so we will need financial screening. We will start that process here. She will need close monitoring of her bilirubin. Case was discussed with Dr. Gordillo. Thank you for the consult. Job ID: [id number] [facility]
[2019-04-27] MEDS: Dextrose 5 % And 0.9 % NaCl 1,000 ML IV SCH (01:41)
[2019-04-27] MEDS: Ondansetron PF 4 MG/2 ML Vial IVP PRN (03:12)
[2019-04-27] MEDS: Methyl Salicylate/Menthol 85 GM TUBE TOP PRN ×4 (03:38→21:44)
[2019-04-27] MEDS: Acetaminophen/Codeine 30-300mg Tablet PO PRN ×4 (03:39→21:42)
[2019-04-27] MEDS: Metoclopramide 10 MG/10 ML UDCUP PO SCH ×3 (08:36→13:52)
[2019-04-27] MEDS: Furosemide 20 MG TAB PO SCH ×2 (08:36→16:44)
[2019-04-27] MEDS: Docusate 100 MG CAP PO SCH ×2 (08:36→21:41)
[2019-04-27] MEDS: NIFEdipine XL 60 MG TAB PO SCH (08:36)
[2019-04-27] MEDS: Ferrous Sulfate 325 MG TAB PO SCH ×2 (08:36→16:44)
[2019-04-27] MEDS: Polyethylene Glycol 3350 17 GM Packet PO SCH ×2 (08:37→21:40)
[2019-04-27] MEDS: Pantoprazole 40 MG VIAL IVP SCH ×2 (08:37→21:42)
--- NOTE | 2019-04-27 10:56 | PDOC.HOSPP ---
- Subjective Encounter Date: 04/27/19 Encounter Time: 10:51 Subjective: Feels better than when she was admitted. She is able to get up and around a little bit. Still has "some abnormal breathing in [her] chest." - Objective Vital Signs & Weight: Vital Signs (12 hours) Temp Pulse Resp BP Pulse Ox 04/27/19 08:00 132 H 04/27/19 07:11 98.6 F 121 H 20 124/58 L 96 04/27/19 04:00 98.6 F 123 H 16 123/58 L 94 L 04/27/19 00:19 98.3 F 124 H 18 147/65 H 95 Weight Admit Weight 327 lb Weight 327 lb 6.183 oz Most Recent Monitor Data Heart Rate from ECG 123 NIBP 174/88 NIBP BP-Mean 116 Respiration from ECG 22 SpO2 98 I&O: 04/26/19 04/27/19 04/28/19 06:59 06:59 06:59 Intake Total 1600 1173 Output Total 1655 2610 Balance -55 -0568 Result Diagrams: 04/26/19 05:22 04/26/19 05:22 Hospitalist ROS - Medication Medications: Active Medications Generic Name Dose Route Start Last Admin Trade Name Freq PRN Reason Stop Dose Admin Acetaminophen/Codeine Phosphate 1 tab 04/27/19 02:51 04/27/19 08:45 Tylenol #3 PO 1 tab Q4H PRN Administration Moderate Pain (4-6) Docusate Sodium 100 mg 04/26/19 21:00 04/27/19 08:36 Colace PO 100 mg BID SWETA Administration Ferrous Sulfate 325 mg 04/26/19 17:00 04/27/19 08:36 Feosol PO 325 mg BID-WM SWETA Administration Furosemide 40 mg 04/26/19 14:00 04/27/19 08:36 Lasix PO 40 mg 0900,1400 SWETA Administration Dextrose/Sodium Chloride 1,000 mls @ 50 mls/hr 04/26/19 06:45 04/27/19 01:41 D5 0.9% Ns IV 1,000 mls .Q20H SWETA Administration Menthol/Methyl Salicylate 0 gm 04/27/19 02:49 04/27/19 08:46 Muscle Rub Cream (Bengay) TOP 1 gm QIDPRN PRN Administration Muscle Spasm Metoclopramide HCl 10 mg 04/26/19 17:00 04/27/19 08:36 Reglan PO 04/27/19 11:31 10 mg ACHS SWETA Administration Morphine Sulfate 2 mg 04/26/19 11:46 04/26/19 23:45 Morphine SLOW IVP 2 mg Q4H PRN Administration Chest Pain/BP Elevations Nifedipine 60 mg 04/27/19 09:00 04/27/19 08:36 Procardia Xl PO 60 mg DAILY SWETA Administration Ondansetron HCl 4 mg 04/25/19 18:10 04/27/19 03:12 Zofran IVP 4 mg Q6H PRN Administration Nausea/Vomiting Pantoprazole Sodium 40 mg 04/26/19 21:00 04/27/19 08:37 Protonix IVP 40 mg Q12HR SWETA Administration Polyethylene Glycol 17 gm 04/27/19 09:00 04/27/19 08:37 Miralax PO 17 gm DAILY SWETA Administration Promethazine HCl 25 mg 04/26/19 13:10 04/26/19 20:26 Phenergan IM/IV 25 mg Q6H PRN Administration Nausea/Vomiting Sodium Chloride 10 ml 04/25/19 18:10 04/27/19 03:14 Flush - Normal Saline IVF 10 ml PRN PRN Administration Saline Flush Sodium Chloride 2 ml 04/26/19 17:24 04/26/19 18:26 [place] Nasal [place] 0.65% EA NARE 2 ml TID PRN Administration Nasal Congestion - Exam General Appearance: NAD General - other findings: Morbidly obese. Slightly uncomfortable appearing. Heart: RRR, no murmur, no gallops, no rubs, normal peripheral pulses Heart - other findings: Tachy Respiratory: CTAB, no wheezes, no rales, no ronchi, normal chest expansion, no tachypnea, normal percussion Gastrointestinal: soft, normal bowel sounds Gastrointestinal - other findings: Tender hepatomegaly. Extremities: no cyanosis, no clubbing, no edema Skin: normal turgor, no lesions, no rashes Neurological: CN's grossly intact, normal sensation to touch, no weakness, no focal deficits, no new deficit Psychiatric: normal affect, normal behavior, A&O x 3 Hosp A/P (1) Metabolic acidosis Code(s): E87.2 - ACIDOSIS Status: Acute (2) Morbid obesity Code(s): E66.01 - MORBID (SEVERE) OBESITY DUE TO EXCESS CALORIES Status: Chronic (3) Acute blood loss anemia Code(s): D62 - ACUTE POSTHEMORRHAGIC ANEMIA Status: Resolved (4) Coagulopathy Status: Resolved (5) Hypercalcemia Code(s): E83.52 - HYPERCALCEMIA Status: Acute (6) Endometrial cancer Code(s): C54.1 - MALIGNANT NEOPLASM OF ENDOMETRIUM Status: Chronic - Plan Still very tachy. EKG, Echo to rule out pericardial effusion. Transfuse. She needs chemo, but will need to get to the OP setting to initiate. Calcium is better with zolendronate. Hope to consider discharge tomorrow after transfusion and echo. Note for her mother for work.
[2019-04-27] MEDS ORDERED: Iron, Sodium Ferric Gluconate 250 MG in Sodium Chloride 0.9% 100 ML IVPB SCH (12:30)
--- NOTE | 2019-04-27 13:14 | PRG ---
DATE OF SERVICE: 04/27/2019 SUBJECTIVE: This is a 33-year-old female, being seen for hypercalcemia. The patient denies any nausea, vomiting, or chest pain. OBJECTIVE: GENERAL: The patient is awake and alert. VITAL SIGNS: Afebrile, pulse is 70, breathing 16, blood pressure 136/75. GENERAL APPEARANCE AND MENTAL STATUS: Fair. HEAD/NECK: Normocephalic. Atraumatic. EYES: EOMI. No deformity. EARS: Clear. No ulcers. NOSE: Intact. No lesions. MOUTH: Clear. No discharge. THROAT: Clear. No exudate. LUNGS: Clear. No crackles. CARDIAC: S1, S2. No rub. ABDOMEN: Benign. Bowel sounds positive. GENITALIA/RECTUM: Mitchell absent. BACK/EXTREMITIES: Edema 0+. NEUROLOGICAL: Alert and motor intact. SKIN: LYMPHATICS: LABORATORY DATA: Hemoglobin 7.4 from yesterday, today is pending. ASSESSMENT/RECOMMENDATION: Hypercalcemia due to metastatic cancer. We will repeat labs today, I have ordered; hypertension; chronic kidney disease, stable. Medication based on GFR appropriate. I will sign off if the calcium is within normal limits. Job ID: [id number]
--- NOTE | 2019-04-27 13:49 | PDOC.PALPN ---
Palliative Progress Note - Subjective "Feels better but back hurts and still short of breath at times." Complains of constipation. - Objective Vital Signs: Vital Signs - Most Recent Temp Pulse Resp BP Pulse Ox 97.9 F 121 H 20 143/76 H 95 04/27/19 11:35 04/27/19 11:35 04/27/19 11:35 04/27/19 11:35 04/27/19 11:35 - Physical Exam Constitutional: NAD HEENT: moist MMs, EOMI Deviation from normal: labored respirations, clear to upper lobes Deviation from normal: obese, mild tenderness to upper quad Musculoskeletal: pulses present Neurological: moves all 4 limbs Skin: normal turgor - Assessment (1) Palliative care encounter Code(s): Z51.5 - ENCOUNTER FOR PALLIATIVE CARE Current Visit: Yes Status: Acute (2) Morbid obesity Code(s): E66.01 - MORBID (SEVERE) OBESITY DUE TO EXCESS CALORIES Current Visit : Yes Status: Chronic (3) Endometrial cancer Code(s): C54.1 - MALIGNANT NEOPLASM OF ENDOMETRIUM Current Visit: No Status : Chronic - Plan Plan: *Will add Colace and increase Miralax until constipation is resolved. *Discussed Cancer and metastasis with patient and her understanding and wishes. She understands that Timbo Villagran with Onc is attempting to arrange potential treatment options. 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 *Education for resuscitation status, again patient states she wishes to have all resuscitative measures done *Discussed goals of care not only for palliating cancer but what is important to her and her interests. 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 [60] minutes spent on this encounter with >50% of the time in counseling and coordination of care.
[2019-04-27] MEDS: Morphine 2 MG/ML SYRINGE SLOW IVP PRN (13:51)
[2019-04-27 15:24] LABS: Hemoglobin 7.6 g/dL (12.0-16.0)
[2019-04-27 15:46] LABS: Anion Gap 26 mmol/L (10-20); BUN (Urea Nitrogen) 9 mg/dL (7.0-18.7); Calc. Creatinine Clearance 303 mL/min (70-130); Carbon Dioxide 17 mmol/L (22-29); Chloride 96 mmol/L (98-107); Estimated GFR-MDRD Greater than 90; Glucose 78 mg/dL (70-105); Potassium 3.1 mmol/L (3.5-5.1); Sodium 136 mmol/L (136-145)
[2019-04-27] MEDS: Bisacodyl 10 MG SUPP PR PRN (16:44)
[2019-04-28] MEDS: Acetaminophen/Codeine 30-300mg Tablet PO PRN ×4 (02:09→18:26)
[2019-04-28] MEDS: Methyl Salicylate/Menthol 85 GM TUBE TOP PRN ×3 (02:09→14:32)
[2019-04-28] MEDS: Dextrose 5 % And 0.9 % NaCl 1,000 ML IV SCH (05:52)
[2019-04-28] MEDS: Ferrous Sulfate 325 MG TAB PO SCH ×2 (08:18→18:16)
[2019-04-28] MEDS: Furosemide 20 MG TAB PO SCH ×2 (08:18→13:27)
[2019-04-28] MEDS: Docusate 100 MG CAP PO SCH ×2 (08:18→20:56)
--- NOTE | 2019-04-28 08:22 | PDOC.MOPN ---
Interval History: still hurting., she notices she is jaundiced. she would like to try chemo if we think this is an option - Vital Signs Vital Signs: Vital Signs (12 hours) Temp Pulse Resp BP Pulse Ox 04/28/19 08:06 97.0 F L 116 H 24 H 110/59 L 100 Weight Admit Weight 327 lb Weight 327 lb 6.183 oz Most Recent Monitor Data Heart Rate from ECG 123 NIBP 174/88 NIBP BP-Mean 116 Respiration from ECG 22 SpO2 98 - Physical Exam General: Alert, Cooperative, Other (morbidly obese) HEENT: Atraumatic Lungs: Clear to auscultation Cardiovascular: Regular rate Abdomen: Normal bowel sounds, Other (tender in екатерина LQs) Extremities: No clubbing Psych/Mental Status: Mental status NL - Labs Result Diagrams: 04/27/19 15:18 04/27/19 15:17 Lab results: Laboratory Results - last 24 hr 04/27/19 15:18: Hgb 7.6 L, Hct 24.9 L 04/27/19 15:17: Calcium 10.0 04/27/19 15:17: Sodium 136, Potassium 3.1 L, Chloride 96 L, Carbon Dioxide 17 L , Anion Gap 26 H, BUN 9, Creatinine 0.62, Estimated GFR (MDRD) Greater than 90 , Glucose 78, Calcium 10.0 04/25/19 15:58: Blood Type AB POSITIVE, Antibody Screen NEGATIVE, Crossmatch See Detail - Radiology Interpretation CT - Ab/Pelvis report reviewed by me A/P - Problem (1) Secondary malignancy of liver Current Visit: Yes Code(s): C78.7 - SECONDARY MALIG NEOPLASM OF LIVER AND INTRAHEPATIC BILE DUCT Status: Acute (2) Morbid obesity Current Visit: Yes Code(s): E66.01 - MORBID (SEVERE) OBESITY DUE TO EXCESS CALORIES Status: Chronic (3) Neuroendocrine carcinoma Current Visit: Yes Code(s): C7A.8 - OTHER MALIGNANT NEUROENDOCRINE TUMORS Status: Acute - Plan Plan: 1. we discusses starting chemotherapy, she would like to try something even if it is not curative. We discussed carboplatin and etopside 2. check CMP, dosing based on these labs 3. continue pain control, appreciate palliative care 4. hopefully start chemo tomorrow
[2019-04-28] MEDS: Pantoprazole 40 MG VIAL IVP SCH ×2 (08:24→20:57)
[2019-04-28] MEDS: Polyethylene Glycol 3350 17 GM Packet PO SCH ×2 (08:31→20:56)
[2019-04-28] MEDS ORDERED: Iopamidol 370 76% 100 ML VIAL ONE (09:39)
[2019-04-28 10:40] LABS: ALT (SGPT) 87 U/L (8-55); AST (SGOT) 424 U/L (5-34); Albumin 3.5 g/dL (3.5-5.0); Alkaline Phosphatase 540 U/L (40-150); Anion Gap 32 mmol/L (10-20); BUN (Urea Nitrogen) 11 mg/dL (7.0-18.7); Bilirubin, Total 8.1 mg/dL (0.2-1.2); Calc. Creatinine Clearance 289 mL/min (70-130); Calcium 9.7 mg/dL (7.8-10.44); Carbon Dioxide 12 mmol/L (22-29); Chloride 95 mmol/L (98-107); Estimated GFR-MDRD Greater than 90; Globulin 3.5 g/dL (2.4-3.5); Glucose 74 mg/dL (70-105); Potassium 3.3 mmol/L (3.5-5.1); Sodium 136 mmol/L (136-145)
[2019-04-28] MEDS ORDERED: Hydrocortisone Acetate 25 MG Suppository PR PRN (13:17)
--- NOTE | 2019-04-28 13:21 | PDOC.HOSPP ---
- Subjective Encounter Date: 04/28/19 Encounter Time: 13:18 Subjective: Ms. Rubin was seen today in follow-up of endometrial cancer. She is complaining of feeling short of breath, primarily when moving. - Objective Vital Signs & Weight: Vital Signs (12 hours) Temp Pulse Resp BP Pulse Ox 04/28/19 08:06 97.0 F L 116 H 24 H 110/59 L 100 Weight Admit Weight 327 lb Weight 327 lb 6.183 oz Most Recent Monitor Data Heart Rate from ECG 123 NIBP 174/88 NIBP BP-Mean 116 Respiration from ECG 22 SpO2 98 I&O: 04/27/19 04/28/19 04/29/19 06:59 06:59 06:59 Intake Total 1173 870 584 Output Total 2610 Balance -1437 870 584 Result Diagrams: 04/27/19 15:18 04/28/19 10:10 Hospitalist ROS - Medication Medications: Active Medications Generic Name Dose Route Start Last Admin Trade Name Freq PRN Reason Stop Dose Admin Acetaminophen/Codeine Phosphate 1 tab 04/27/19 02:51 04/28/19 08:16 Tylenol #3 PO 1 tab Q4H PRN Administration Moderate Pain (4-6) Bisacodyl 10 mg 04/26/19 11:46 04/27/19 16:44 Dulcolax SC 10 mg Q8H PRN Administration Constipation Docusate Sodium 100 mg 04/26/19 21:00 04/28/19 08:18 Colace PO 100 mg BID SWETA Administration Ferrous Sulfate 325 mg 04/26/19 17:00 04/28/19 08:18 Feosol PO 325 mg BID-WM SWETA Administration Furosemide 40 mg 04/26/19 14:00 04/28/19 08:18 Lasix PO 40 mg 0900,1400 SWETA Administration Dextrose/Sodium Chloride 1,000 mls @ 50 mls/hr 04/26/19 06:45 04/28/19 05:52 D5 0.9% Ns IV 1,000 mls .Q20H SWETA Administration Menthol/Methyl Salicylate 0 gm 04/27/19 02:49 04/28/19 08:21 Muscle Rub Cream (Bengay) TOP 85 gm QIDPRN PRN Administration Muscle Spasm Morphine Sulfate 2 mg 04/26/19 11:46 04/27/19 13:51 Morphine SLOW IVP 2 mg Q4H PRN Administration Chest Pain/BP Elevations Nifedipine 60 mg 04/27/19 09:00 04/27/19 08:36 Procardia Xl PO 60 mg DAILY SWETA Administration Ondansetron HCl 4 mg 04/25/19 18:10 04/27/19 03:12 Zofran IVP 4 mg Q6H PRN Administration Nausea/Vomiting Pantoprazole Sodium 40 mg 04/26/19 21:00 04/28/19 08:24 Protonix IVP 40 mg Q12HR SWETA Administration Polyethylene Glycol 17 gm 04/27/19 21:00 04/28/19 08:31 Miralax PO Not Given BID SWETA Promethazine HCl 25 mg 04/26/19 13:10 04/26/19 20:26 Phenergan IM/IV 25 mg Q6H PRN Administration Nausea/Vomiting Sodium Chloride 10 ml 04/25/19 18:10 04/27/19 13:53 Flush - Normal Saline IVF 10 ml PRN PRN Administration Saline Flush Sodium Chloride 2 ml 04/26/19 17:24 04/26/19 18:26 [place] Nasal [place] 0.65% EA NARE 2 ml TID PRN Administration Nasal Congestion - Exam ENT: normocephalic atraumatic, no oropharyngeal lesions Heart: RRR (Tachycardic), no murmur, no gallops, no rubs, normal peripheral pulses Respiratory: CTAB, no wheezes, no rales, no ronchi, normal chest expansion Gastrointestinal: soft, non-tender, non-distended, normal bowel sounds, no palpable masses Extremities: no cyanosis, no clubbing, no edema Skin: normal turgor, no lesions, no rashes Neurological: no weakness Hosp A/P (1) Endometrial cancer Code(s): C54.1 - MALIGNANT NEOPLASM OF ENDOMETRIUM Status: Chronic (2) Acute respiratory failure Code(s): J96.00 - ACUTE RESPIRATORY FAILURE, UNSP W HYPOXIA OR HYPERCAPNIA Status: Acute (3) Neuroendocrine carcinoma Code(s): C7A.8 - OTHER MALIGNANT NEUROENDOCRINE TUMORS Status: Acute (4) Coagulopathy Status: Resolved - Plan * Endometrial cancer- this is advanced- plan is to begin chemotherapy tomorrow * Respiratory failure- ? etiology- he could be due to deconditioning, severe anemia, and obesity, however she is a risk for PE- will check a CTA of the chest. If we are not able to perform this test due to body habitus then will consider VQ scan * Still awaiting Echo
[2019-04-28] MEDS: Ondansetron PF 4 MG/2 ML Vial IVP PRN (13:27)
[2019-04-28] MEDS: NIFEdipine XL 60 MG TAB PO SCH (14:30)
--- NOTE | 2019-04-28 14:46 | CT ---
CT PULMONARY ANGIOGRAM WITH IV CONTRAST AND 3D POSTPROCESSIN04/28/19 HISTORY: Shortness of breath and tachycardia. Endometrial cancer. COMPARISON: 03/28/19. FINDINGS: There is inadequate opacification of the pulmonary artery vasculature making this a nondiagnostic exa m to evaluate for pulmonary embolism. The thoracic aorta is also not well opacified. No thoracic aortic aneurysm is seen. No pleural or per icardial effusions are seen. Multiple pulmonary nodules consistent with metastatic disease are again seen with some of them demonstrating interval increase in size. The nodule in the superior segment of the left lower lobe measures 11 mm (previously 8 mm). Upper abdominal tomograms demonstrate multiple liver masses. There are changes of cholecystectomy. There are degenerative changes in the spine. IMPRESSION: 1. Nondiagnostic for pulmonary embolism. 2. Findings are consistent with hepatic and pulmonary metastases. POS: TAURUS
[2019-04-28] MEDS ORDERED: Lorazepam 0.5 MG TAB PO PRN (17:13)
[2019-04-28] MEDS ORDERED: Temazepam 15 MG CAP PO PRN (19:43)
[2019-04-29] MEDS: Acetaminophen/Codeine 30-300mg Tablet PO PRN ×5 (00:01→19:31)
[2019-04-29] MEDS: Methyl Salicylate/Menthol 85 GM TUBE TOP PRN ×3 (00:03→17:24)
[2019-04-29] MEDS: Dextrose 5 % And 0.9 % NaCl 1,000 ML IV SCH ×2 (03:36→19:35)
[2019-04-29 06:07] LABS: Free T4 (Free Thyroxine) 0.82 ng/dL (0.70-1.48); Thyroid Stimulating Hormone 2.2893 uIU/mL (0.35-4.94)
[2019-04-29] MEDS: Furosemide 20 MG TAB PO SCH ×2 (08:34→14:14)
[2019-04-29] MEDS: Ferrous Sulfate 325 MG TAB PO SCH ×2 (08:35→17:25)
[2019-04-29] MEDS: NIFEdipine XL 60 MG TAB PO SCH (08:36)
[2019-04-29] MEDS: Pantoprazole 40 MG VIAL IVP SCH ×2 (08:36→19:35)
[2019-04-29] MEDS: Docusate 100 MG CAP PO SCH ×2 (08:36→19:34)
[2019-04-29] MEDS: Polyethylene Glycol 3350 17 GM Packet PO SCH ×2 (08:36→19:35)
--- NOTE | 2019-04-29 09:58 | PDOC.MOPN ---
Interval History: sat in chair this am, minimal vaginal bleeding. - Vital Signs Vital Signs: Vital Signs (12 hours) Temp Pulse Resp BP BP Pulse Ox 04/29/19 08:36 115 H 129/64 04/29/19 08:25 98.2 F 115 H 22 H 129/64 96 Weight Admit Weight 327 lb Weight 327 lb 6.183 oz Most Recent Monitor Data Heart Rate from ECG 123 NIBP 174/88 NIBP BP-Mean 116 Respiration from ECG 22 SpO2 98 - Physical Exam General: Alert HEENT: Atraumatic Lungs: Clear to auscultation Cardiovascular: Regular rate Abdomen: Normal bowel sounds Extremities: No clubbing, No cyanosis, No edema, Normal pulses, No tenderness/ swelling Skin: No rashes, No breakdown, No significant lesion Neurological: Normal speech Psych/Mental Status: Mental status NL - Labs Result Diagrams: 04/27/19 15:18 04/28/19 10:10 Lab results: Laboratory Results - last 24 hr 04/29/19 05:18: Free T4 0.82, TSH 3rd Generation 2.2893 04/28/19 10:10: Sodium 136, Potassium 3.3 L, Chloride 95 L, Carbon Dioxide 12 L , Anion Gap 32 H, BUN 11, Creatinine 0.65, Estimated GFR (MDRD) Greater than 90 , Glucose 74, Calcium 9.7, Total Bilirubin 8.1 H, AST 424 H, ALT 87 H, Alkaline Phosphatase 540 H, Serum Total Protein 7.0, Albumin 3.5, Globulin 3.5, Albumin/ Globulin Ratio 1.0 L 04/25/19 15:58: Crossmatch See Detail Status: lab reviewed by me A/P - Problem (1) Neuroendocrine carcinoma Current Visit: Yes Code(s): C7A.8 - OTHER MALIGNANT NEUROENDOCRINE TUMORS Status: Acute - Plan Plan: plan chemo today dose based on liver, kidney function
[2019-04-29 10:20] LABS: Hemoglobin 7.5 g/dL (12.0-16.0); Mean Corpuscular HGB CONC 31.2 g/dL (32.0-36.0); Mean Corpuscular Hemoglobin 22.2 pg (27.0-31.0); Mean Corpuscular Volume 71.4 fL (78.0-98.0); Mean Platelet Volume 8.7 fL (7.4-10.4); Platelet Count 461 thou/uL (130-400); RBC Distribution Width 21.3 % (11.5-14.5); Red Blood Cell (RBC) Count 3.38 mill/uL (4.20-5.40); White Blood Cell (WBC) Count 20.6 thou/uL (4.8-10.8)
[2019-04-29 10:42] LABS: Band 3 % (5-11); Hypochromia SLIGHT = 6-15 cells (100X) (0-5/hpf); Lymphocytes 23 % (21-51); MDiff Complete? YES; Microcytosis MODERATE=15-30 cells (100X) (0-5/hpf); Monocytes 9 % (0-10); Neutrophil 65 % (42-75); Nucleated RBC 3 % (0); Platelet Morphology Comment Appears Increased; Polychromasia MODERATE = 3-4 cells (100X) (0-2/hpf)
--- NOTE | 2019-04-29 14:55 | PDOC.HOSPP ---
- Subjective Encounter Date: 04/29/19 Encounter Time: 14:51 Subjective: Ms. Rubin was seen today in follow-up. She notes some discomfort in her legs with the SCD's, otherwise ok. - Objective Vital Signs & Weight: Vital Signs (12 hours) Temp Pulse Resp BP BP Pulse Ox 04/29/19 12:00 98.1 F 114 H 20 136/65 96 04/29/19 08:36 115 H 129/64 04/29/19 08:25 98.2 F 115 H 22 H 129/64 96 Weight Admit Weight 327 lb Weight 327 lb 6.183 oz Most Recent Monitor Data Heart Rate from ECG 123 NIBP 174/88 NIBP BP-Mean 116 Respiration from ECG 22 SpO2 98 I&O: 04/28/19 04/29/19 04/30/19 06:59 06:59 06:59 Intake Total 870 1511 Balance 870 1511 Result Diagrams: 04/29/19 09:48 04/28/19 10:10 Hospitalist ROS - Medication Medications: Active Medications Generic Name Dose Route Start Last Admin Trade Name Freq PRN Reason Stop Dose Admin Acetaminophen/Codeine Phosphate 1 tab 04/27/19 02:51 04/29/19 14:12 Tylenol #3 PO 1 tab Q4H PRN Administration Moderate Pain (4-6) Bisacodyl 10 mg 04/26/19 11:46 04/27/19 16:44 Dulcolax FL 10 mg Q8H PRN Administration Constipation Docusate Sodium 100 mg 04/26/19 21:00 04/29/19 08:36 Colace PO 100 mg BID SWETA Administration Ferrous Sulfate 325 mg 04/26/19 17:00 04/29/19 08:35 Feosol PO 325 mg BID-WM SWETA Administration Furosemide 40 mg 04/26/19 14:00 04/29/19 14:14 Lasix PO 40 mg 0900,1400 SWETA Administration Dextrose/Sodium Chloride 1,000 mls @ 50 mls/hr 04/26/19 06:45 04/29/19 03:36 D5 0.9% Ns IV 1,000 mls .Q20H SWETA Administration Lorazepam 0.25 mg 04/28/19 17:13 04/29/19 03:38 Ativan PO 0.25 mg Q4H PRN Administration Anxiety Menthol/Methyl Salicylate 0 gm 04/27/19 02:49 04/29/19 04:32 Muscle Rub Cream (Bengay) TOP 85 gm QIDPRN PRN Administration Muscle Spasm Morphine Sulfate 2 mg 04/26/19 11:46 04/27/19 13:51 Morphine SLOW IVP 2 mg Q4H PRN Administration Chest Pain/BP Elevations Nifedipine 60 mg 04/29/19 09:00 04/29/19 08:36 Procardia Xl PO 60 mg DAILY SWETA Administration Ondansetron HCl 4 mg 04/25/19 18:10 04/28/19 13:27 Zofran IVP 4 mg Q6H PRN Administration Nausea/Vomiting Pantoprazole Sodium 40 mg 04/26/19 21:00 04/29/19 08:36 Protonix IVP 40 mg Q12HR SWETA Administration Polyethylene Glycol 17 gm 04/27/19 21:00 04/29/19 08:36 Miralax PO 17 gm BID SWETA Administration Promethazine HCl 25 mg 04/26/19 13:10 04/26/19 20:26 Phenergan IM/IV 25 mg Q6H PRN Administration Nausea/Vomiting Sodium Chloride 10 ml 04/25/19 18:10 04/27/19 13:53 Flush - Normal Saline IVF 10 ml PRN PRN Administration Saline Flush Sodium Chloride 2 ml 04/26/19 17:24 04/26/19 18:26 [place] Nasal [place] 0.65% EA NARE 2 ml TID PRN Administration Nasal Congestion Temazepam 15 mg 04/28/19 19:43 04/28/19 20:57 Restoril PO 15 mg HSPRN PRN Administration Insomnia - Exam Eye: PERRL, anicteric sclera Heart: RRR, no murmur, no gallops, no rubs, normal peripheral pulses Respiratory: no wheezes, normal chest expansion, rhonchi (+ occasional rhonchi) Gastrointestinal: soft, non-tender, non-distended, normal bowel sounds, no palpable masses, no hepatomegaly, no splenomegaly Extremities: no cyanosis, no clubbing, no edema Hosp A/P (1) Endometrial cancer Code(s): C54.1 - MALIGNANT NEOPLASM OF ENDOMETRIUM Status: Chronic (2) Acute respiratory failure Code(s): J96.00 - ACUTE RESPIRATORY FAILURE, UNSP W HYPOXIA OR HYPERCAPNIA Status: Acute (3) Neuroendocrine carcinoma Code(s): C7A.8 - OTHER MALIGNANT NEUROENDOCRINE TUMORS Status: Acute (4) Coagulopathy Status: Resolved - Plan * Endometrial cancer- this is advanced- plan is to begin chemotherapy hopefully tomorrow * Respiratory failure- she appears more comfortable today, her O2 saturations are up to 100% on room air. CTA of the chest was non-diagnostic- she may benefit from another unit of blood due to her low hemoglobin- will discuss with Oncology * Echo results noted
[2019-04-29 15:39] LABS: Anion Gap 28 mmol/L (10-20); BUN (Urea Nitrogen) 17 mg/dL (7.0-18.7); Calc. Creatinine Clearance 264 mL/min (70-130); Calcium 9.3 mg/dL (7.8-10.44); Carbon Dioxide 16 mmol/L (22-29); Chloride 93 mmol/L (98-107); Estimated GFR-MDRD Greater than 90; Glucose 70 mg/dL (70-105); Potassium 3.6 mmol/L (3.5-5.1); Sodium 133 mmol/L (136-145)
[2019-04-29] MEDS: Morphine 2 MG/ML SYRINGE SLOW IVP PRN ×2 (17:07→21:01)
[2019-04-29] MEDS: Ondansetron PF 4 MG/2 ML Vial IVP PRN (17:08)
[2019-04-30] MEDS: Acetaminophen/Codeine 30-300mg Tablet PO PRN ×2 (00:30→08:07)
[2019-04-30] MEDS: Morphine 2 MG/ML SYRINGE SLOW IVP PRN ×3 (04:20→17:06)
[2019-04-30] MEDS: Bisacodyl 10 MG SUPP PR PRN (06:38)
--- NOTE | 2019-04-30 07:43 | PDOC.MOPN ---
Interval History: pain stable, she was OOB to chair yesterday. ready to start chemo. risks discussed - Vital Signs Vital Signs: Vital Signs (12 hours) Temp Pulse Resp BP Pulse Ox 04/30/19 07:24 98.1 F 107 H 22 H 125/59 L 97 04/29/19 20:00 98.2 F 113 H 16 128/60 96 Weight Admit Weight 327 lb Weight 327 lb 6.183 oz Most Recent Monitor Data Heart Rate from ECG 123 NIBP 174/88 NIBP BP-Mean 116 Respiration from ECG 22 SpO2 98 - Physical Exam General: Alert HEENT: Atraumatic Lungs: Clear to auscultation Cardiovascular: Regular rate Abdomen: Normal bowel sounds, Other (tender in екатерина LQs) Skin: No rashes Neurological: Normal gait Psych/Mental Status: Mental status NL - Labs Result Diagrams: 04/29/19 09:48 04/29/19 15:11 Lab results: Laboratory Results - last 24 hr 04/29/19 15:11: Sodium 133 L, Potassium 3.6, Chloride 93 L, Carbon Dioxide 16 L , Anion Gap 28 H, BUN 17, Creatinine 0.71, Estimated GFR (MDRD) Greater than 90 , Glucose 70, Calcium 9.3 04/29/19 09:48: WBC 20.6 H, RBC 3.38 L, Hgb 7.5 L, Hct 24.1 L, MCV 71.4 L, MCH 22.2 L, MCHC 31.2 L, RDW 21.3 H, Plt Count 461 H, MPV 8.7, Neutrophils % (Manual ) 65, Band Neuts % (Manual) 3 L, Lymphocytes % (Manual) 23, Monocytes % (Manual ) 9, Neutrophils # Not Reportable, Lymphocytes # Not Reportable, Nucleated RBCs # (Man) 3 H, Hypochromia SLIGHT = 6-15 cells, Plt Morphology Comment Appears Increased H, Polychromasia MODERATE = 3-4 cells H, Microcytosis MODERATE=15-30 cells H A/P - Problem (1) Secondary malignancy of liver Current Visit: Yes Code(s): C78.7 - SECONDARY MALIG NEOPLASM OF LIVER AND INTRAHEPATIC BILE DUCT Status: Acute (2) Morbid obesity Current Visit: Yes Code(s): E66.01 - MORBID (SEVERE) OBESITY DUE TO EXCESS CALORIES Status: Chronic (3) Neuroendocrine carcinoma Current Visit: Yes Code(s): C7A.8 - OTHER MALIGNANT NEUROENDOCRINE TUMORS Status: Acute (4) Acute blood loss anemia Current Visit: Yes Code(s): D62 - ACUTE POSTHEMORRHAGIC ANEMIA Status: Resolved - Plan Plan: 1. start chemo today with 20% dose reduction 2. follow cbc, consider tranfusion if hgb declines 3. port, consult surgery 4. neulasta support
[2019-04-30] MEDS ORDERED: CARBOplatin 600 MG in Sodium Chloride 0.9% 250 ML 250 ML IVPB SCH (08:00)
[2019-04-30] MEDS ORDERED: Dexamethasone 10 MG in Sodium Chloride 0.9% 50 ML IVPB SCH (08:00)
[2019-04-30] MEDS ORDERED: Palonosetron HCl 0.25 MG in Sodium Chloride 0.9% 50 ML IVPB SCH (08:00)
[2019-04-30] MEDS: Furosemide 20 MG TAB PO SCH ×2 (08:07→15:39)
[2019-04-30] MEDS: Docusate 100 MG CAP PO SCH ×2 (08:09→21:23)
[2019-04-30] MEDS: NIFEdipine XL 60 MG TAB PO SCH (08:09)
[2019-04-30] MEDS: Ferrous Sulfate 325 MG TAB PO SCH ×2 (08:10→17:33)
[2019-04-30] MEDS: Pantoprazole 40 MG VIAL IVP SCH ×2 (08:11→21:21)
[2019-04-30] MEDS: Polyethylene Glycol 3350 17 GM Packet PO SCH ×2 (08:11→21:22)
[2019-04-30] MEDS: Methyl Salicylate/Menthol 85 GM TUBE TOP PRN ×2 (08:25→18:22)
[2019-04-30] MEDS ORDERED: Magnesium Citrate 300 ML BOT PO SCH (10:30)
[2019-04-30] MEDS: Ondansetron PF 4 MG/2 ML Vial IVP PRN ×2 (11:23→18:22)
[2019-04-30] MEDS: Promethazine HCl 25 MG/ML VIAL IM/IV PRN (13:11)
--- NOTE | 2019-04-30 16:13 | PRG ---
DATE OF SERVICE: 04/30/2019 SUBJECTIVE: The patient is seen and examined at bedside. She complains about some shortness of breath. She denies any cough. OBJECTIVE: VITAL SIGNS: Blood pressure is 105/59, pulse is 109, temperature is 97.6, respirations 20, and O2 saturation 95% on room air. GENERAL: She is obese. BMI is 54. Her weight is 327 pounds. HEENT: Eyes are PERRLA. Sclerae are nonicteric. Conjunctivae palish. Oral mucosa is moist. NECK: Supple and obese. LUNGS: Clear. HEART: S1 and S2 normal. Tachycardic. No S3. No S4. ABDOMEN: Obese, soft, and nontender. EXTREMITIES: No clubbing, cyanosis, or edema. NEUROLOGIC: She follows my commands. She moves all 4 extremities. There are no any motor or sensory deficits. Cranial nerves are intact. LABORATORY DATA: No lab work today. IMPRESSION: 1. Shortness of breath, most likely related to metastatic disease to the lungs. We will check her pulse oximetry. 2. Uterine cancer with metastasis to liver and lungs. 3. Acute respiratory failure. 4. Coagulopathy, resolved. 5. Neuroendocrine carcinoma. PLAN: The patient is supposed to get chemotherapy by Dr. Monaco. Dose will be reduced by 20%. We will check pulse oximetry. If she is less than 95%, we will put her on O2 to support her respiratory status. She will get a port by General Surgery and the patient is scheduled for chemotherapy today. Job ID: [id number]
[2019-04-30] MEDS: SODIUM CHLORIDE 0.9% IVPB SCH (18:24)
[2019-04-30] MEDS: ETOPOSIDE IVPB SCH (18:24)
[2019-04-30 19:15] LABS: Analyzer IN Cardio OR; Base Excess (BEa) -21.6 mEq/L (-2.0 to +3.0); Calcium, Ionized 1.12 mmol/L (1.12-1.30); Carboxyhemoglobin (COHb) 0.9 gm% (0.0-3.0); Hemoglobin (Hb) 8.1 g/dL (12.0-16.0); O2 Tension (PaO2) 64.9 mmHg (80.0-100.0); Potassium - ABG Lab 4.52 mmol/L (3.70-5.30)
[2019-04-30 19:17] LABS: Puncture Site R BRACHIAL; pH, Arterial 6.96 (7.35-7.45)
[2019-04-30 19:26] LABS: Hemoglobin 7.5 g/dL (12.0-16.0); Mean Corpuscular HGB CONC 29.2 g/dL (32.0-36.0); Mean Corpuscular Hemoglobin 22.6 pg (27.0-31.0); Mean Corpuscular Volume 77.3 fL (78.0-98.0); Mean Platelet Volume 8.2 fL (7.4-10.4); Platelet Count 427 thou/uL (130-400); RBC Distribution Width 23.6 % (11.5-14.5); Red Blood Cell (RBC) Count 3.32 mill/uL (4.20-5.40); White Blood Cell (WBC) Count 36.9 thou/uL (4.8-10.8)
[2019-04-30 19:29] LABS: Analyzer IN Cardio OR; Base Excess (BEa) -21.6 mEq/L (-2.0 to +3.0); Calcium, Ionized 1.12 mmol/L (1.12-1.30); Carboxyhemoglobin (COHb) 0.9 gm% (0.0-3.0); Hemoglobin (Hb) 8.1 g/dL (12.0-16.0); O2 Tension (PaO2) 64.9 mmHg (80.0-100.0); Potassium - ABG Lab 4.52 mmol/L (3.70-5.30)
[2019-04-30 19:30] LABS: Puncture Site RBRACH; pH, Arterial 6.96 (7.35-7.45)
[2019-04-30 19:49] LABS: Troponin I Less than 0.010 ng/mL (< 0.028)
[2019-04-30] MEDS ORDERED: Midazolam HCl 2 mg/2 ml Vial ONE (19:52)
[2019-04-30 19:59] LABS: Anisocytosis MODERATE=16-30 cells (100X) (0-5/hpf); Band 8 % (5-11); Hypochromia SLIGHT = 6-15 cells (100X) (0-5/hpf); Lymphocytes 21 % (21-51); MDiff Complete? YES; Microcytosis SLIGHT = 6-15 cells (100X) (0-5/hpf); Monocytes 11 % (0-10); Myelocyte 1 % (0-0); Neutrophil 59 % (42-75); Nucleated RBC 8 % (0); Polychromasia SLIGHT = 2-3 cells (100X) (0-2/hpf); Target Cells SLIGHT = 2-5 cells (100X) (0-1/hpf)
[2019-04-30] MEDS ORDERED: Sodium Bicarb 50 MEQ/50 ML VIAL IVP SCH (20:00)
--- NOTE | 2019-04-30 20:02 | PDOC.EVN ---
Event Note - Event Note Event Note: Jonn Cao called with hypoxia and resp distress in context of metastatic endometrial CA on current chemotx. Initially noted with accessory muscle use, resp distress, confusion with O2 sats 68% on RA then increased to 94% on 5L/min NC. Glucose 86 and BP 94/44, HR 91, T - 97.6 Gen: lethargic, opens eyes and speaks to questions/name, moves extremities Chest: diminished sounds in bases o/w clear CV: S1, S2 without murmur ABD: obese, soft, no rebound EXT: mild peripheral edema ABG: Laboratory Tests 04/25/19 04/30/19 04/30/19 16:33 18:57 19:09 WBC 36.9 H Hgb 7.5 L Hct 25.7 L Plt Count 427 H Bicarbonate Actual 9.0 L POC Bicarbonate Calc 14.1 L* ABG pH 6.96 L* ABG pCO2 41.0 ABG pO2 64.9 L ABG O2 Sat Calc/Sandra 82.0 L* PCXR - pending EKG: NSR, no acute changes A/P: Acute hypoxic resp failure - etiology unclear, BiPAP NIMV until preparations for intubation, spoke with Anesthesia for airway mgmt, CMP, Troponin pending consider PE r/o given hx of endometrial CA on chemo, PCXR pending, Jose M, Pulmonary consultation, updated change of status with Medical Oncology, transfer to CCU now. Severe Resp Acidosis - see above, [facility] ventilation, serial monitoring Total Critical Care Time: 35min
[2019-04-30 20:03] LABS: ALT (SGPT) 149 U/L (8-55); AST (SGOT) 808 U/L (5-34); Albumin 3.4 g/dL (3.5-5.0); Alkaline Phosphatase 489 U/L (40-150); BUN (Urea Nitrogen) 22 mg/dL (7.0-18.7); Calc. Creatinine Clearance 172 mL/min (70-130); Calcium 8.6 mg/dL (7.8-10.44); Carbon Dioxide Less than 8 mmol/L (22-29); Chloride 90 mmol/L (98-107); Estimated GFR-MDRD 70; Globulin 3.5 g/dL (2.4-3.5); Glucose 65 mg/dL (70-105); Potassium 4.7 mmol/L (3.5-5.1); Protein, Total 6.9 g/dL (6.0-8.3); Sodium 128 mmol/L (136-145)
[2019-04-30] MEDS ORDERED: Propofol 1,000 MG/100 ML VIAL IV ONE (20:04)
[2019-04-30] MEDS ORDERED: Ventilator Sedation Protocol 1 EACH FS ONE (20:10)
[2019-04-30] MEDS ORDERED: fentaNYL Citrate/PF 2,000 MCG in Sodium Chloride 0.9% 60 ML IV SCH (20:15)
[2019-04-30] MEDS ORDERED: Morphine 2 MG/ML SYRINGE SLOW IVP PRN (20:15)
[2019-04-30] MEDS ORDERED: Fentanyl BOLUS 250 ML IVPB PRN (20:15)
[2019-04-30] MEDS ORDERED: Propofol BOLUS 1,000 MG/100 ML VIAL IV PRN (20:15)
[2019-04-30] MEDS ORDERED: DISCONTINUE PREVIOUS NARCOTIC PAIN MEDICATIONS AND BENZODIAZEPINES FS SCH (20:15)
[2019-04-30 20:31] LABS: Lactic Acid 18.5 mmol/L (0.5-2.2)
[2019-04-30 20:44] LABS: Base Excess (BEa) -14.1 mEq/L (-2.0 to +3.0); CO2 Tension 28.7 mmHg (35.0-45.0); Calcium, Ionized 1.05 mmol/L (1.12-1.30); Carboxyhemoglobin (COHb) 1.3 gm% (0.0-3.0); Hemoglobin (Hb) 7.9 g/dL (12.0-16.0); O2 Tension (PaO2) 101.8 mmHg (80.0-100.0); Potassium - ABG Lab 4.01 mmol/L (3.70-5.30)
[2019-04-30] MEDS: Dextrose 5 % And 0.9 % NaCl 1,000 ML IV SCH (20:47)
[2019-04-30 20:48] LABS: ALV-art Gradient 147.525 (0-20); Puncture Site RBRACH; pH, Arterial 7.24 (7.35-7.45)
--- NOTE | 2019-04-30 20:49 | RAD ---
PORTABLE CHEST ONE VIEW: 04/30/19 at 8:25 p.m. HISTORY: Respiratory failure. COMPARISON: Comparison made to exam of 04/05/19. FINDINGS/IMPRESSION: There is an endotracheal tube with tip at the level of the clavicular heads. Nasogastric tube has bee n placed which can be traced into the stomach. The heart size is normal. No focal areas of consolidat ion, pneumothoraces or pleural effusions are identified. POS: [facility]
[2019-04-30] MEDS: Sodium Bicarbonate 150 MEQ in Dextrose 5% in Water 1,000 ML IV SCH (21:07)
[2019-04-30] MEDS ORDERED: Docusate Sodium 100 MG/10 ML UDCUP PO SCH (21:15)
[2019-04-30] MEDS: Docusate Sodium 100 MG/10 ML UDCUP PO SCH (21:22)
[2019-04-30] MEDS: Propofol 1,000 MG/100 ML VIAL IV PRN (23:28)
[2019-04-30] MEDS: Lorazepam 2 MG/ML VIAL SLOW IVP PRN (23:28)
--- NOTE | 2019-05-01 01:31 | CON ---
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 She received chemo today. She apparently has been declining throughout the day, and was subsequently transferred to critical care unit after blood gas showed a pH of less than 7.0. She was unable to give history when I arrived. She had BiPAP in place. PAST MEDICAL HISTORY: Remarkable for recent diagnosis of endometrial cancer, which actually felt to be a neuroendocrine endometrial cancer, which clinically behaves like a small cell lung cancer, it is very aggressive. She has extensive hepatic metastases and actually presented with a coagulopathy and a severe lactic acidosis this admission. Her INR was 15 on admission. PAST SURGICAL HISTORY: Otherwise remarkable only for a cholecystectomy. ALLERGIES: SHE HAS NO DRUG ALLERGIES. FAMILY HISTORY: Positive for cancer. REVIEW OF SYSTEMS: Cannot be obtained. PHYSICAL EXAMINATION: GENERAL: She is unresponsive. VITAL SIGNS: Blood pressure is 99/76, heart rate is in the 90s, afebrile, oximetry on room air was 94 earlier today, blood pressure earlier has been between 105 and 112 systolic. She is quite obese. HEENT: Her sclera is icteric. NECK: She has very large neck. LUNGS: Remarkable for distant breath sounds. HEART: Distant heart tones. S1, S2 are distant because of her size. I do not hear murmur. ABDOMEN: Quite large without any guarding or tenderness. EXTREMITIES: Without asymmetry. LABORATORY DATA: Blood gas prior to transfer 6.96, CO2 41, PO2 64. White count 36.9, hemoglobin 7.5, platelets 427. Sodium 128, potassium 4.7, chloride 90, bicarb less than 8, BUN 22, creatinine 1.0. Lactic acid this evening is 18. I recommended fiberoptic intubation. Also, she will be started on bicarb drip. Four amps of bicarb have been given. Post intubation blood gas 7.23, CO2 of 28, and pO2 of 101. IMPRESSION: Severe lactic acidosis, likely secondary to extensive replacement of her hepatic parenchyma with tumor. Abnormal liver enzymes with bilirubin of 10 now and life-threatening coagulopathy on presentation argues that majority of her liver synthetic function has been replaced by her malignancy. I suspect this is a preterminal event unless there is some sort of miraculous response to first round of chemotherapy, which seems unlikely at this point. CRITICAL CARE TIME: 50 minutes independent of procedures. Job ID: [id number]
[2019-05-01] MEDS: Propofol 1,000 MG/100 ML VIAL IV PRN ×6 (04:28→19:15)
[2019-05-01] MEDS: Sodium Bicarbonate 150 MEQ in Dextrose 5% in Water 1,000 ML IV SCH ×2 (04:29→13:03)
[2019-05-01 05:01] LABS: Hemoglobin 7.2 g/dL (12.0-16.0); Mean Corpuscular HGB CONC 30.3 g/dL (32.0-36.0); Mean Corpuscular Hemoglobin 22.6 pg (27.0-31.0); Mean Corpuscular Volume 74.6 fL (78.0-98.0); Mean Platelet Volume 8.7 fL (7.4-10.4); Platelet Count 394 thou/uL (130-400); RBC Distribution Width 23.3 % (11.5-14.5); Red Blood Cell (RBC) Count 3.18 mill/uL (4.20-5.40); White Blood Cell (WBC) Count 27.9 thou/uL (4.8-10.8)
[2019-05-01 05:06] LABS: INR-International Normal Ratio 1.7; Prothrombin Time 19.6 SEC (12.0-14.7)
[2019-05-01 05:17] LABS: Anion Gap 34 mmol/L (10-20); BUN (Urea Nitrogen) 25 mg/dL (7.0-18.7); Calc. Creatinine Clearance 162 mL/min (70-130); Calcium 8.4 mg/dL (7.8-10.44); Carbon Dioxide 16 mmol/L (22-29); Chloride 86 mmol/L (98-107); Estimated GFR-MDRD 65; Potassium 4.6 mmol/L (3.5-5.1); Sodium 131 mmol/L (136-145)
[2019-05-01 05:19] LABS: ALT (SGPT) 196 U/L (8-55); AST (SGOT) 1331 U/L (5-34); Albumin 3.2 g/dL (3.5-5.0); Alkaline Phosphatase 463 U/L (40-150); Bilirubin, Direct 8.1 mg/dL (0.1-0.3); Bilirubin, Total 10.2 mg/dL (0.2-1.2); Protein, Total 6.7 g/dL (6.0-8.3)
[2019-05-01 05:20] LABS: Anisocytosis MODERATE=16-30 cells (100X) (0-5/hpf); Band 8 % (5-11); Hypochromia SLIGHT = 6-15 cells (100X) (0-5/hpf); Lymphocytes 13 % (21-51); MDiff Complete? YES; Metamyelocyte 1 % (0-0); Microcytosis SLIGHT = 6-15 cells (100X) (0-5/hpf); Monocytes 6 % (0-10); Neutrophil 72 % (42-75); Nucleated RBC 1 % (0); Platelet Morphology Comment Appears Adequate; Polychromasia SLIGHT = 2-3 cells (100X) (0-2/hpf); Target Cells SLIGHT = 2-5 cells (100X) (0-1/hpf)
[2019-05-01 05:26] LABS: Glucose 50 mg/dL (70-105)
[2019-05-01] MEDS: Dextrose 50% Abboject 50 ML SYRINGE IVP PRN ×2 (05:40→17:53)
[2019-05-01 07:23] LABS: ALV-art Gradient 156.325 (0-20); Base Excess (BEa) -8.1 mEq/L (-2.0 to +3.0); CO2 Tension 27.1 mmHg (35.0-45.0); Calcium, Ionized 0.97 mmol/L (1.12-1.30); Carboxyhemoglobin (COHb) 1.7 gm% (0.0-3.0); Hemoglobin (Hb) 7.6 g/dL (12.0-16.0); Potassium - ABG Lab 4.56 mmol/L (3.70-5.30); Puncture Site RRA; pH, Arterial 7.39 (7.35-7.45)
[2019-05-01] MEDS: Pantoprazole 40 MG VIAL IVP SCH ×2 (07:37→20:08)
[2019-05-01] MEDS: Polyethylene Glycol 3350 17 GM Packet PO SCH ×3 (07:37→22:41)
[2019-05-01] MEDS: Lorazepam 2 MG/ML VIAL SLOW IVP PRN ×3 (07:39→16:04)
--- NOTE | 2019-05-01 09:41 | RAD ---
Exam: Portable chest one view: HISTORY: Respiratory insufficiency patient on ventilator COMPARISON: 04/30/2019 FINDINGS: There is prominent rotation to the right. Increased interstitial and reticular nodular parenchymal ch anges in the left chest possibly developing acute vascular congestion or patchy pneumonitis or increased opacity which may only be related to the rotation and poor inspiratory effort. NG tube and endotracheal tubes are in satisfactory location. Right chest appears stable. IMPRESSION: Overall increased density in the left chest compared to prior study. Continued short-term follow-up.
[2019-05-01] MEDS: Docusate Sodium 100 MG/10 ML UDCUP PO SCH ×3 (09:50→22:40)
--- NOTE | 2019-05-01 10:20 | PDOC.MOPN ---
Interval History: sedated, intubated. some tenderness/reaction to abdominal exam - Vital Signs Vital Signs: Vital Signs (12 hours) Temp Pulse Resp BP 05/01/19 07:20 110 H 102/55 L 05/01/19 06:00 30 H 05/01/19 04:00 30 H 05/01/19 03:15 105 H 05/01/19 03:00 98.9 F 05/01/19 02:00 30 H 05/01/19 00:00 98.8 F 30 H Weight Admit Weight 327 lb Weight 335 lb 15.752 oz Most Recent Monitor Data Heart Rate from ECG 108 NIBP 111/55 NIBP BP-Mean 73 Respiration from ECG 30 SpO2 98 - Physical Exam General: Other (sedated/intubated) HEENT: Atraumatic Lungs: Clear to auscultation Cardiovascular: Other (tachy) Abdomen: Normal bowel sounds, Other (tenderness in RUQ, liver edge palpable) Skin: No rashes - Labs Result Diagrams: 05/01/19 04:50 05/01/19 04:50 Lab results: Laboratory Results - last 24 hr 05/01/19 10:07: POC Glucose 74 05/01/19 07:18: Specimen Type ARTERIAL, Puncture Site RRA, Bicarbonate Actual 16.0 L, ABG pH 7.39, ABG pCO2 27.1 L, ABG pO2 95.0, ABG O2 Sat Calc/Sandra 98.0, ABG O2 Content 10.5 L, ABG Base Excess -8.1 L, ABG Hematocrit 22.0 L, ABG Hemoglobin 7.6 L, ABG Oxyhemoglobin 96.2, ABG Carboxyhemoglobin 1.7, ABG Methemoglobin 0.10, ABG Deoxyhemoglobin 2.0, Carson Test POSITIVE, A-a O2 Gradient 156.325 H, Sodium 129 L, Potassium 4.56, Chloride 86 L, Ionized Calcium 0.97 L, Mode of Support SIMV/PS, Mechanical Rate 30, Inspired O2 40, Tidal Volume 500, Pressure Support 10, PEEP or CPAP 5.0 05/01/19 06:27: POC Glucose 94 05/01/19 04:50: PT 19.6 H, INR 1.7 05/01/19 04:50: Total Bilirubin 10.2 H, Direct Bilirubin 8.1 H, AST 1331 H, ALT 196 H, Alkaline Phosphatase 463 H, Serum Total Protein 6.7, Albumin 3.2 L 05/01/19 04:50: WBC 27.9 H, RBC 3.18 L, Hgb 7.2 L, Hct 23.7 L, MCV 74.6 L, MCH 22.6 L, MCHC 30.3 L, RDW 23.3 H, Plt Count 394, MPV 8.7, Neutrophils % (Manual) 72, Band Neuts % (Manual) 8, Lymphocytes % (Manual) 13 L, Monocytes % (Manual) 6 , Metamyelocytes % (Man) 1 H, Nucleated RBCs # (Man) 1 H, Hypochromia SLIGHT = 6 -15 cells, Plt Morphology Comment Appears Adequate, Polychromasia SLIGHT = 2-3 cells, Anisocytosis MODERATE=16-30 cells H, Microcytosis SLIGHT = 6-15 cells, Target Cells SLIGHT = 2-5 cells 05/01/19 04:50: Sodium 131 L, Potassium 4.6, Chloride 86 L, Carbon Dioxide 16 L , Anion Gap 34 H, BUN 25 H, Creatinine 1.16 H, Estimated GFR (MDRD) 65, Glucose 50 L*, Calcium 8.4 04/30/19 20:30: Specimen Type ARTERIAL, Puncture Site RBRACH, Bicarbonate Actual 12.0 L, ABG pH 7.24 L*, ABG pCO2 28.7 L, ABG pO2 101.8 H, ABG O2 Sat Calc /Sandra 97.6, ABG O2 Content 10.9 L, ABG Base Excess -14.1 L, ABG Hematocrit 23.0 L, ABG Hemoglobin 7.9 L, ABG Oxyhemoglobin 96.0, ABG Carboxyhemoglobin 1.3, ABG Methemoglobin 0.30, ABG Deoxyhemoglobin 2.4, A-a O2 Gradient 147.525 H, Sodium 130 L, Potassium 4.01, Chloride 89 L, Ionized Calcium 1.05 L, Mode of Support SIMV, Mechanical Rate 30, Inspired O2 40, Tidal Volume 500, Pressure Support 10 , PEEP or CPAP 5.0 04/30/19 19:44: Lactic Acid 18.5 H* 04/30/19 19:09: Sodium 128 L, Potassium 4.7, Chloride 90 L, Carbon Dioxide Less than 8 L*, Anion Gap TNP, BUN 22 H, Creatinine 1.09, Estimated GFR (MDRD) 70, Glucose 65 L, Calcium 8.6, Total Bilirubin 10.0 H, AST 808 H, ALT 149 H, Alkaline Phosphatase 489 H, Serum Total Protein 6.9, Albumin 3.4 L, Globulin 3.5 , Albumin/Globulin Ratio 1.0 L 04/30/19 19:09: Troponin I Less than 0.010 04/30/19 19:09: WBC 36.9 H, RBC 3.32 L, Hgb 7.5 L, Hct 25.7 L, MCV 77.3 L, MCH 22.6 L, MCHC 29.2 L, RDW 23.6 H, Plt Count 427 H, MPV 8.2, Neutrophils % (Manual ) 59, Band Neuts % (Manual) 8, Lymphocytes % (Manual) 21, Monocytes % (Manual) 11 H, Myelocytes % 1 H, Neutrophils # Not Reportable, Lymphocytes # Not Reportable, Nucleated RBCs # (Man) 8 H, Hypochromia SLIGHT = 6-15 cells, Polychromasia SLIGHT = 2-3 cells, Anisocytosis MODERATE=16-30 cells H, Microcytosis SLIGHT = 6-15 cells, Target Cells SLIGHT = 2-5 cells 04/30/19 19:00: Specimen Type ARTERIAL, Puncture Site R BRACHIAL, Bicarbonate Actual 9.0 L, ABG pH 6.96 L*, ABG pCO2 41.0, ABG pO2 64.9 L, ABG O2 Sat Calc/ Sandra 82.0 L*, ABG O2 Content 9.3 L, ABG Base Excess -21.6 L, ABG Hematocrit 24.0 L, ABG Hemoglobin 8.1 L, ABG Oxyhemoglobin 81.1 L, ABG Carboxyhemoglobin 0.9, ABG Methemoglobin 0.20, ABG Deoxyhemoglobin 17.8 H, Carson Test NOT DONE, A- a O2 Gradient 169.050 H, Sodium 126 L, Potassium 4.52, Chloride 89 L, Ionized Calcium 1.12, Mode of Support 5LNC, Inspired O2 40 04/30/19 18:58: POC Glucose 86 04/30/19 18:57: Specimen Type ARTERIAL, Puncture Site RBRACH, Bicarbonate Actual 9.0 L, ABG pH 6.96 L*, ABG pCO2 41.0, ABG pO2 64.9 L, ABG O2 Sat Calc/ Sandra 82.0 L*, ABG O2 Content 9.3 L, ABG Base Excess -21.6 L, ABG Hematocrit 24.0 L, ABG Hemoglobin 8.1 L, ABG Oxyhemoglobin 81.1 L, ABG Carboxyhemoglobin 0.9, ABG Methemoglobin 0.20, ABG Deoxyhemoglobin 17.8 H, Sodium 126 L, Potassium 4.52, Chloride 89 L, Ionized Calcium 1.12, Mode of Support 5L NC A/P - Problem (1) Secondary malignancy of liver Current Visit: Yes Code(s): C78.7 - SECONDARY MALIG NEOPLASM OF LIVER AND INTRAHEPATIC BILE DUCT Status: Acute (2) Morbid obesity Current Visit: Yes Code(s): E66.01 - MORBID (SEVERE) OBESITY DUE TO EXCESS CALORIES Status: Chronic (3) Neuroendocrine carcinoma Current Visit: Yes Code(s): C7A.8 - OTHER MALIGNANT NEUROENDOCRINE TUMORS Status: Acute (4) Acute blood loss anemia Current Visit: Yes Code(s): D62 - ACUTE POSTHEMORRHAGIC ANEMIA Status: Resolved - Plan Plan: 1. d2 of etoposide 2. no transfusion for now 3. appreciate pulmonary help 4. follow Cr and LFTs
--- NOTE | 2019-05-01 12:02 | PRG ---
DATE OF SERVICE: 05/01/2019 SUBJECTIVE: The patient is seen and examined at the bedside. She went into a metabolic acidosis with respiratory failure. Last night, she got moved to the intensive care unit and got intubated, and now she is on a ventilator. OBJECTIVE: VITAL SIGNS: Blood pressure is 108/47, pulse is 112, temperature is 100.3, and O2 saturation is 96%. She is on a ventilator, sedated. LUNGS: Diminished breath sounds at the left lung area with coarse sounds. HEART: S1 and S2. Tachycardic. No S3. No S4. ABDOMEN: Obese and soft. Not distended. EXTREMITIES: No clubbing, cyanosis, or edema. NEUROLOGIC: Postponed since she is sedated. LABORATORY DATA: White count of 27.9, hemoglobin of 7.2, hematocrit 23.7, platelet count is 394,000. INR 1.7, PT 19.6. ABGs showed a pH of 7.39 up from 6.96 yesterday, pCO2 of 27.1, pO2 is 98.0 up from 82.0 yesterday, base excess is -8.1. Sodium of 131, potassium 4.6, chloride 86, CO2 is up to 16 from less than 8 yesterday, BUN of 25, creatinine 1.16, glucose is ranging from 50 to 80. Total bilirubin 10.2, direct bilirubin 8.1, AST 1331, ALT 196, alkaline phosphatase 463, albumin 3.2, and serum total protein 6.8. Chest x-ray showed significant change in the left chest with overall increased density, most likely representing patchy pneumonitis. NG and endotracheal tubes are in satisfactory location. IMPRESSION: 1. Acute respiratory failure. 2. Profound severe metabolic acidosis. 3. Acute liver failure. 4. Coagulopathy, still present. 5. Neuroendocrine carcinoma. 6. Uterine cancer with metastasis to liver and lungs. PLAN: The case was discussed with Dr. Campoverde. She is going to get started on Rocephin 2 g every 24 hours to cover her pneumonitis. She is a DNR at this point made by her mother. She is supposed to get chemotherapy by Dr. Monaco today. Her prognosis is very poor. She will be on a ventilator for now until char filter tank tender head makes decision about extubation. We will continue supportive care and intensive care treatments. Job ID: [id number]
--- NOTE | 2019-05-01 12:06 | PRG ---
DATE OF SERVICE: 05/01/2019 SUBJECTIVE: Leela Rubin stable overnight. Her acid-base status is improved. OBJECTIVE: VITAL SIGNS: She has a temperature of 101 this morning, heart rate 112, blood pressure 108/47, and respiratory rates 30. HEAD AND NECK: Unchanged. LUNGS: Clear. HEART: Regular rhythm. S1 and S2 normal. ABDOMEN: Soft and nontender. EXTREMITIES: Without any change. DIAGNOSTIC DATA: Chest radiograph suggestive of atelectasis of the left base. IMPRESSION: Metastatic neuroendocrine tumor of the uterus (small-cell cancer of uterus) with liver failure because of massive infiltration of hepatic tissue. We will continue with chemo. She will empirically be started on Rocephin for fever today. We will continue the bicarb infusion. I suspect her glycogen stores are inadequate as she has had borderline hypoglycemia this morning and we want her Accu-Cheks q.2 hours. I met with mom, answered all her questions. Mom is willing to make her do not resuscitate status. I assured mom that would continue aggressively short of the code. She agreed with this plan. CRITICAL CARE TIME: 35 minutes. Job ID: [id number]
[2019-05-01] MEDS: cefTRIAXone\\ROCEPHIN 2 GM in Sodium Chloride 0.9% 100 ML IVPB SCH (12:11)
[2019-05-01] MEDS: ETOPOSIDE IVPB SCH (17:33)
[2019-05-01] MEDS: SODIUM CHLORIDE 0.9% IVPB SCH (17:33)
[2019-05-01] MEDS ORDERED: Acetaminophen 650 MG/20.3 ML UDCUP PO PRN (19:30)
[2019-05-01 19:57] LABS: Actual Bicarbonate (HCO3a) 15.3 mEq/L (22-28); Base Excess (BEa) -9.7 mEq/L (-2.0 to +3.0); CO2 Tension 29.7 mmHg (35.0-45.0); Calcium, Ionized 0.89 mmol/L (1.12-1.30); Carboxyhemoglobin (COHb) 0.9 gm% (0.0-3.0); Hemoglobin (Hb) 7.1 g/dL (12.0-16.0); O2 Tension (PaO2) 81.1 mmHg (80.0-100.0); Potassium - ABG Lab 4.72 mmol/L (3.70-5.30); pH, Arterial 7.33 (7.35-7.45)
[2019-05-01] MEDS ORDERED: Sodium Chloride 0.9% 1,000 ML IV SCH (21:00)
[2019-05-01] MEDS: Norepinephrine 8 MG in Dextrose 5% in Water 242 ML IVPB PRN (22:10)
[2019-05-02 00:37] LABS: ALV-art Gradient 273.925 (0-20); Puncture Site RBRACH
[2019-05-02 06:02] LABS: INR-International Normal Ratio 1.9; Prothrombin Time 21.8 SEC (12.0-14.7)
[2019-05-02 06:21] LABS: ALT (SGPT) 247 U/L (8-55); AST (SGOT) 1963 U/L (5-34); Albumin 2.8 g/dL (3.5-5.0); Alkaline Phosphatase 410 U/L (40-150); Bilirubin, Direct 8.7 mg/dL (0.1-0.3); Bilirubin, Total 11.4 mg/dL (0.2-1.2); Protein, Total 6.1 g/dL (6.0-8.3)
[2019-05-02 06:29] LABS: Anion Gap 42 mmol/L (10-20); BUN (Urea Nitrogen) 29 mg/dL (7.0-18.7); Calc. Creatinine Clearance 80 mL/min (70-130); Calcium 7.4 mg/dL (7.8-10.44); Carbon Dioxide 10 mmol/L (22-29); Chloride 83 mmol/L (98-107); Estimated GFR-MDRD 26; Glucose 96 mg/dL (70-105); Potassium 5.6 mmol/L (3.5-5.1); Sodium 129 mmol/L (136-145)
[2019-05-02 06:43] LABS: Anisocytosis MODERATE=16-30 cells (100X) (0-5/hpf); Band 9 % (5-11); Hemoglobin 7.9 g/dL (12.0-16.0); Lymphocytes 14 % (21-51); MDiff Complete? YES; Mean Corpuscular HGB CONC 29.8 g/dL (32.0-36.0); Mean Corpuscular Hemoglobin 24.1 pg (27.0-31.0); Mean Corpuscular Volume 80.8 fL (78.0-98.0); Mean Platelet Volume 8.9 fL (7.4-10.4); Monocytes 3 % (0-10); Neutrophil 74 % (42-75); Nucleated RBC 10 % (0); Platelet Count 319 thou/uL (130-400); Platelet Morphology Comment Appears Adequate; RBC Distribution Width 24.2 % (11.5-14.5); Red Blood Cell (RBC) Count 3.29 mill/uL (4.20-5.40); White Blood Cell (WBC) Count 27.5 thou/uL (4.8-10.8)
[2019-05-02 08:21] LABS: Base Excess (BEa) -15.4 mEq/L (-2.0 to +3.0); CO2 Tension 27.8 mmHg (35.0-45.0); Calcium, Ionized 0.85 mmol/L (1.12-1.30); Carboxyhemoglobin (COHb) 0.9 gm% (0.0-3.0); Hemoglobin (Hb) 8.5 g/dL (12.0-16.0); O2 Tension (PaO2) 79.2 mmHg (80.0-100.0); Potassium - ABG Lab 5.43 mmol/L (3.70-5.30)
[2019-05-02] MEDS: Norepinephrine 8 MG in Dextrose 5% in Water 242 ML IVPB PRN ×3 (08:36→20:42)
[2019-05-02 08:38] LABS: Puncture Site RR; pH, Arterial 7.21 (7.35-7.45)
--- NOTE | 2019-05-02 09:54 | RAD ---
PORTABLE SUPINE FRONTAL CHEST: Date: 05/02/19 COMPARISON: 05/01/19. HISTORY: Ventilated patient. FINDINGS: Inspiration is shallow, limiting detailed assessment. Nasogastric tube extends into the left upper qu adrant. Stable endotracheal tube. No lobar consolidation. Supine imaging limits assessment for pneumo thorax and pleural fluid. The study is limited secondary to supine imaging, patient body habitus, and shallow inspiration. IMPRESSION: Lines and tubes as above. Limited study. POS: OFF
[2019-05-02] MEDS: Docusate Sodium 100 MG/10 ML UDCUP PO SCH (11:09)
[2019-05-02] MEDS: Polyethylene Glycol 3350 17 GM Packet PO SCH (11:10)
[2019-05-02] MEDS: Pantoprazole 40 MG VIAL IVP SCH ×2 (11:11→19:54)
[2019-05-02] MEDS: Propofol 1,000 MG/100 ML VIAL IV PRN ×3 (11:13→22:57)
[2019-05-02] MEDS: cefTRIAXone\\ROCEPHIN 2 GM in Sodium Chloride 0.9% 100 ML IVPB SCH (12:23)
--- NOTE | 2019-05-02 12:27 | PDOC.MOPN ---
Interval History: sedated, mother and fiancee at bedside. she is not on levophed - Vital Signs Vital Signs: Vital Signs (12 hours) Temp Pulse Resp BP 05/02/19 10:26 93 98/34 L 05/02/19 08:00 99.5 F 05/02/19 07:56 94 94/36 L 05/02/19 06:00 99.6 F 33 H 05/02/19 04:00 98.3 F 32 H 05/02/19 03:00 99 F 05/02/19 02:41 106 H 05/02/19 02:00 99.2 F 30 H Weight Admit Weight 358 lb 14.601 oz Weight 358 lb 14.601 oz Most Recent Monitor Data Heart Rate from ECG 94 NIBP 86/38 NIBP BP-Mean 54 Respiration from ECG 30 SpO2 91 - Physical Exam General: Moderate distress, Other (sedated/intubated) HEENT: Atraumatic Lungs: Clear to auscultation Cardiovascular: Regular rate Abdomen: Normal bowel sounds, Other (tender in RUQ) - Labs Result Diagrams: 05/02/19 05:36 05/02/19 05:36 Lab results: Laboratory Results - last 24 hr 05/02/19 10:05: POC Glucose 156 H 05/02/19 08:04: POC Glucose 147 H 05/02/19 08:00: Specimen Type ARTERIAL, Puncture Site RR, Bicarbonate Actual 11.0 L, ABG pH 7.21 L*, ABG pCO2 27.8 L, ABG pO2 79.2 L, ABG O2 Sat Calc/Sandra 93.3 L, ABG O2 Content 11.1 L, ABG Base Excess -15.4 L, ABG Hematocrit 25.0 L, ABG Hemoglobin 8.5 L, ABG Oxyhemoglobin 92.2 L, ABG Carboxyhemoglobin 0.9, ABG Methemoglobin 0.30, ABG Deoxyhemoglobin 6.6 H, Carson Test POSITIVE, A-a O2 Gradient 278.200 H, Sodium 125 L, Potassium 5.43 H, Chloride 81 L, Ionized Calcium 0.85 L, Mode of Support SIMV, % Minute Volume 16.2, Mechanical Rate 30, Inspired O2 55, Tidal Volume 500, Pressure Support 10, PEEP or CPAP 5.0 05/02/19 06:09: POC Glucose 138 H 05/02/19 05:36: PT 21.8 H, INR 1.9 05/02/19 05:36: Total Bilirubin 11.4 H, Direct Bilirubin 8.7 H, AST 1963 H, ALT 247 H, Alkaline Phosphatase 410 H, Serum Total Protein 6.1, Albumin 2.8 L 05/02/19 05:36: WBC 27.5 H, RBC 3.29 L, Hgb 7.9 L, Hct 26.6 L, MCV 80.8, MCH 24.1 L, MCHC 29.8 L, RDW 24.2 H, Plt Count 319, MPV 8.9, Neutrophils % (Manual) 74, Band Neuts % (Manual) 9, Lymphocytes % (Manual) 14 L, Monocytes % (Manual) 3 , Nucleated RBCs # (Man) 10 H, Plt Morphology Comment Appears Adequate, Anisocytosis MODERATE=16-30 cells H 05/02/19 05:36: Sodium 129 L, Potassium 5.6 H, Chloride 83 L, Carbon Dioxide 10 L, Anion Gap 42 H, BUN 29 H, Creatinine 2.56 H, Estimated GFR (MDRD) 26, Glucose 96, Calcium 7.4 L 05/02/19 03:39: POC Glucose 130 H 05/02/19 02:25: POC Glucose 127 H 05/02/19 00:13: POC Glucose 107 05/01/19 23:29: Blood Type AB POSITIVE, Antibody Screen NEGATIVE, Crossmatch See Detail 05/01/19 22:22: POC Glucose 90 05/01/19 20:15: POC Glucose 78 05/01/19 19:50: Specimen Type ARTERIAL, Puncture Site RBRACH, Bicarbonate Actual 15.3 L, ABG pH 7.33 L, ABG pCO2 29.7 L, ABG pO2 81.1, ABG O2 Sat Calc/ Sandra 94.9, ABG O2 Content 9.5 L, ABG Base Excess -9.7 L, ABG Hematocrit 21.0 L, ABG Hemoglobin 7.1 L, ABG Oxyhemoglobin 93.8 L, ABG Carboxyhemoglobin 0.9, ABG Methemoglobin 0.30, ABG Deoxyhemoglobin 5.0 H, A-a O2 Gradient 273.925 H, Sodium 126 L, Potassium 4.72, Chloride 83 L, Ionized Calcium 0.89 L, Mode of Support SIMV, Mechanical Rate 30, Inspired O2 55, Tidal Volume 500, Pressure Support 10, PEEP or CPAP 5.0 05/01/19 18:20: POC Glucose 109 05/01/19 17:51: POC Glucose 47 L* 05/01/19 16:10: POC Glucose 60 L 05/01/19 14:18: POC Glucose 62 L 05/01/19 12:22: POC Glucose 71 A/P - Problem (1) Secondary malignancy of liver Current Visit: Yes Code(s): C78.7 - SECONDARY MALIG NEOPLASM OF LIVER AND INTRAHEPATIC BILE DUCT Status: Acute (2) Morbid obesity Current Visit: Yes Code(s): E66.01 - MORBID (SEVERE) OBESITY DUE TO EXCESS CALORIES Status: Chronic (3) Neuroendocrine carcinoma Current Visit: Yes Code(s): C7A.8 - OTHER MALIGNANT NEUROENDOCRINE TUMORS Status: Acute (4) Acute blood loss anemia Current Visit: Yes Code(s): D62 - ACUTE POSTHEMORRHAGIC ANEMIA Status: Resolved (5) Acute renal failure Current Visit: Yes Status: Acute - Plan Plan: 1. hold etoposide since Cr climbing rapidly 2. contonue supportive care 3. follow cbc, if becomes neutropenic will add granix 4. prognosis is poor
--- NOTE | 2019-05-02 16:04 | PRG ---
DATE OF SERVICE: 05/02/2019 SUBJECTIVE: Ms. Rubin remains sedated from mechanical ventilation. Her acid-base disorder is getting worse. Her renal function is declining. Her intake and outputs positive 4737 with very little urine output. Her white count 27.9, hemoglobin 7.2. I will put in an order for 2 units of packed cells last night and her hemoglobin came up only to 7.9, platelets of 319,000. Glucoses are trending toward 200, but she is still on D10. Bilirubin is up to 11.4. Pro-time is up to 21. IMPRESSION: 1. Hepatic failure secondary to massive tumor infiltration of her liver. 2. Small cell carcinoma of the uterus, metastatic. 3. Status post chemotherapy. 4. Obesity. 5. Severe metabolic acidosis secondary to hepatic infiltration of her liver. 6. Jaundice secondary to her metastatic disease. 7. Coagulopathy secondary to her metastatic disease. I met with mom and answered all of her questions. I did relate to the mom that the struggle look like she will not survive this. She was placed on Levophed last night after a 1 L volume infusion did not lead to improvement overall. Her pH this morning in spite of bicarb drip has fallen to 7.21. She will likely at some point become bradycardic with refractory hypotension and pass away. CRITICAL CARE TIME: 30 minutes. Job ID: [id number]
[2019-05-02 16:56] VITALS: BP 84/37
--- NOTE | 2019-05-02 16:56 | PDOC.HOSPP ---
- Subjective Encounter Date: 05/02/19 Encounter Time: 16:54 Subjective: intubated and sedated - Objective Vital Signs & Weight: Vital Signs (12 hours) Temp Pulse Resp BP 05/02/19 14:20 91 96/31 L 05/02/19 14:00 30 H 05/02/19 12:00 99.9 F H 30 H 05/02/19 10:26 93 98/34 L 05/02/19 10:00 30 H 05/02/19 08:00 99.5 F 30 H 05/02/19 07:56 94 94/36 L 05/02/19 06:00 99.6 F 33 H Weight Admit Weight 358 lb 14.601 oz Weight 358 lb 14.601 oz Most Recent Monitor Data Heart Rate from ECG 90 NIBP 107/32 NIBP BP-Mean 57 Respiration from ECG 30 SpO2 91 I&O: 05/01/19 05/02/19 05/03/19 06:59 06:59 06:59 Intake Total 1972 5654 Output Total 1315 917 0 Balance 657 4737 0 Result Diagrams: 05/02/19 05:36 05/02/19 05:36 Additional Labs: Accuchecks 05/02/19 05/02/19 05/02/19 16:23 14:13 12:27 POC Glucose 195 H 170 H 165 H 05/02/19 05/02/19 05/02/19 10:05 08:04 06:09 POC Glucose 156 H 147 H 138 H 05/02/19 05/02/19 05/02/19 03:39 02:25 00:13 POC Glucose 130 H 127 H 107 05/01/19 05/01/19 05/01/19 22:22 20:15 18:20 POC Glucose 90 78 109 05/01/19 17:51 POC Glucose 47 L* Hospitalist ROS - Medication Medications: Active Medications Generic Name Dose Route Start Last Admin Trade Name Freq PRN Reason Stop Dose Admin Acetaminophen 650 mg 05/01/19 19:30 05/01/19 20:30 Tylenol Elixir PO 650 mg Q4H PRN Administration Headache/Fever/Mild Pain (1-3) Acetaminophen/Codeine Phosphate 1 tab 04/27/19 02:51 04/30/19 08:07 Tylenol #3 PO 1 tab Q4H PRN Administration Moderate Pain (4-6) Bisacodyl 10 mg 04/26/19 11:46 04/30/19 06:38 Dulcolax NC 10 mg Q8H PRN Administration Constipation Dextrose/Water 25 gm 04/26/19 06:37 05/01/19 17:53 Dextrose 50% IVP 25 gm PRN PRN Administration HYPOGLYCEMIA PROTOCOL Ceftriaxone Sodium 2 gm/ 100 mls @ 200 mls/hr 05/01/19 12:00 05/02/19 12:23 Sodium Chloride IVPB 100 mls 1200 SWETA Administration Sodium Bicarbonate 150 meq/ 1,150 mls @ 150 mls/hr 05/01/19 18:30 05/02/19 11 :10 Dextrose/Water IV 1,150 mls .Q7H40M SWETA Administration Norepinephrine Bitartrate 8 mg 250 mls @ 0 mls/hr 05/01/19 21:56 05/02/19 08: 36 / Dextrose/Water IVPB 250 mls INF PRN Administration TO MAINTAIN MAP > 65 Protocol As Directed Lorazepam 0.25 mg 04/28/19 17:13 04/29/19 03:38 Ativan PO 0.25 mg Q4H PRN Administration Anxiety Lorazepam 2 mg 04/30/19 20:15 05/01/19 16:04 Ativan SLOW IVP 05/30/19 20:15 2 mg Q1H PRN Administration Breakthrough agitation Menthol/Methyl Salicylate 0 gm 04/27/19 02:49 04/30/19 18:22 Muscle Rub Cream (Bengay) TOP 85 gm QIDPRN PRN Administration Muscle Spasm Morphine Sulfate 2 mg 04/26/19 11:46 04/30/19 17:06 Morphine SLOW IVP 2 mg Q4H PRN Administration Chest Pain/BP Elevations Ondansetron HCl 4 mg 04/25/19 18:10 04/30/19 18:22 Zofran IVP 4 mg Q6H PRN Administration Nausea/Vomiting Pantoprazole Sodium 40 mg 04/26/19 21:00 05/02/19 11:11 Protonix IVP 40 mg Q12HR SWETA Administration Promethazine HCl 25 mg 04/26/19 13:10 04/30/19 13:11 Phenergan IM/IV 25 mg Q6H PRN Administration Nausea/Vomiting Propofol 1,000 mg 04/30/19 20:15 05/02/19 11:13 Diprivan IV 05/30/19 20:15 1,000 mg INF PRN Administration TO ACHIEVE GOAL RASS Protocol Sodium Chloride 10 ml 04/25/19 18:10 04/27/19 13:53 Flush - Normal Saline IVF 10 ml PRN PRN Administration Saline Flush Sodium Chloride 2 ml 04/26/19 17:24 04/26/19 18:26 [place] Nasal [place] 0.65% EA NARE 2 ml TID PRN Administration Nasal Congestion Temazepam 15 mg 04/28/19 19:43 04/28/19 20:57 Restoril PO 15 mg HSPRN PRN Administration Insomnia - Exam General - other findings: intubated and sedated Eye: scleral icterus ENT: normocephalic atraumatic, no oropharyngeal lesions ENT - other findings: intubated and sedated Heart: RRR, no murmur, no gallops Respiratory - other findings: intubated and sedated Gastrointestinal: soft, non-tender, non-distended Extremities: no cyanosis, no clubbing, 1+ LE edema Neurological - other findings: intubated and sedated Hosp A/P (1) Metabolic acidosis Code(s): E87.2 - ACIDOSIS Status: Acute (2) Endometrial cancer Code(s): C54.1 - MALIGNANT NEOPLASM OF ENDOMETRIUM Status: Chronic (3) Acute renal failure Status: Acute Qualifiers: Acute renal failure type: with acute renal cortical necrosis Qualified Code (s): N17.1 - Acute kidney failure with acute cortical necrosis (4) Secondary malignancy of liver Code(s): C78.7 - SECONDARY MALIG NEOPLASM OF LIVER AND INTRAHEPATIC BILE DUCT Status: Acute (5) Morbid obesity Code(s): E66.01 - MORBID (SEVERE) OBESITY DUE TO EXCESS CALORIES Status: Chronic (6) Acute blood loss anemia Code(s): D62 - ACUTE POSTHEMORRHAGIC ANEMIA Status: Resolved Plan: Small cell carcinoma of the liver with extensive mets to liver. Patient now with significant coagulopathy, sepsis, metabolic acidosis and respiratory failure Patient intibated andsedated IV fluids, IV abx Levophed for hypotension Soda Bi carb for acidosis. Despite these efforts patient remains severely acidotic DNR POOR PROGNOSIS
[2019-05-02] MEDS ORDERED: Sodium Bicarbonate 150 MEQ in Dextrose 5% in Water 1,000 ML IV SCH (18:15)
[2019-05-03 00:15] VITALS: TEMP 98.6
[2019-05-03] MEDS ORDERED: Pegfilgrastim Onpro 6 MG/0.6 ML SQ SCH (08:00)
--- NOTE | 2019-05-04 10:07 | OP ---
DATE OF PROCEDURE: 04/30/2019 PROCEDURE PERFORMED: Fiberoptic intubation. DESCRIPTION OF PROCEDURE: The patient was in sitting position. Bite block was placed in her mouth. Throat was sprayed with Cetacaine spray. Bronchoscope was passed into her upper airway to her vocal cords into her trachea without difficulty. A 7.5 endotracheal tube was secured above the main claudia. She was mechanically ventilated at that point after Ambu bagging. She is being sedated with sedation protocol. Followup blood gas shows a pH of 7.23, CO2 of 28, and pO2 of 101. The bicarb drip will be started soon hopefully. Job ID: [id number]
--- NOTE | 2019-05-05 08:31 | DIS ---
DATE OF ADMISSION: 04/25/2019 DATE OF DISCHARGE: 05/03/2019 ADMISSION DIAGNOSES: 1. 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 2. Metabolic acidosis. 3. Acute renal failure. 4. Endometrial carcinoma. DISCHARGE DIAGNOSES: 1. Endometrial carcinoma. 2. Metabolic acidosis. 3. Respiratory arrest. HISTORY OF PRESENTING ILLNESS: Leela Rubin is a 33-year-old female with extensive liver metastasis from her primary endometrial carcinoma, presented to the ER with acute respiratory distress. The patient was found to be in significant hepatic encephalopathy with metabolic acidosis and respiratory distress and was emergently intubated. The patient in spite of being resuscitated with the sodium bicarbonate on the ventilator, did not respond well to the treatment and eventually succumbed to the respiratory arrest. The patient was declared on 05/03/2019. The patient's body was released to the mortuary. Job ID: [id number]
--- NOTE | 2019-05-08 21:57 | EKG ---
Test Reason : TACHYCARDIA Blood Pressure : / mmHG Vent. Rate : 129 BPM Atrial Rate : 129 BPM P-R Int : 136 ms QRS Dur : 084 ms QT Int : 294 ms P-R-T Axes : 042 047 023 degrees QTc Int : 430 ms Sinus tachycardia Otherwise normal ECG Confirmed by KM BORDEN MD ([id number]), editor trade journal MARIANA MEZA ([id number] on 05/08/2019 9:56:54 PM Referred By: MICHI Confirmed By:KM BORDEN MD
== END 2019-05-03 00:32 | disposition expired | DRG 435 ==
LOC: ERS 15:21 → CCU 20:19 → ONC 04-26 11:44 → CCU 04-30 19:22
PROVIDERS: ADMIT Internal Medicine; ATTEND Internal Medicine
PROC: 30233N1 Transfusion of Nonautologous Red Blood Cells into Peripheral Vein, Percutaneous Approach (ICD-10-PCS; principal; 2019-04-25)
PROC: 0BH18EZ Insertion of Endotracheal Airway into Trachea, Via Natural or Artificial Opening Endoscopic (ICD-10-PCS; 2019-04-30)
PROC: 5A1945Z Respiratory Ventilation, 24-96 Consecutive Hours (ICD-10-PCS; 2019-04-30)
DX: C78.7 Secondary malignant neoplasm of liver and intrahepatic bile duct (principal); A41.9 Sepsis, unspecified organism; J96.01 Acute respiratory failure with hypoxia; C78.00 Secondary malignant neoplasm of unspecified lung; C79.51 Secondary malignant neoplasm of bone; Z68.43 Body mass index [BMI] 50.0-59.9, adult; D62 Acute posthemorrhagic anemia; E87.2 Acidosis; C7A.8 Other malignant neuroendocrine tumors; N17.9 Acute kidney failure, unspecified; D68.8 Other specified coagulation defects; Z51.5 Encounter for palliative care; Z66 Do not resuscitate; C54.1 Malignant neoplasm of endometrium; G89.29 Other chronic pain; M54.9 Dorsalgia, unspecified; E66.01 Morbid (severe) obesity due to excess calories; E83.52 Hypercalcemia; N18.1 Chronic kidney disease, stage 1; I12.9 Hypertensive chronic kidney disease with stage 1 through stage 4 chronic kidney disease, or unspecified chronic kidney disease; Z90.49 Acquired absence of other specified parts of digestive tract; Z91.010 Allergy to peanuts; Z87.891 Personal history of nicotine dependence; Z91.013 Allergy to seafood; K72.90 Hepatic failure, unspecified without coma; Z92.21 Personal history of antineoplastic chemotherapy; Z97.5 Presence of (intrauterine) contraceptive device
CPT/HCPCS: 36415; 36416; 36430; 51702; 71045; 71260; 71275; 74177; 76856; 80048; 80053; 80076; 81003; 81015; 81025; 82274; 82330; 82803; 82805; 83605; 83690; 84439; 84443; 84484; 85007; 85014; 85018; 85025; 85027; 85049; 85300; 85362; 85379; 85384; 85610; 85730; 86850; 86900; 86901; 87040; 87086; 93005; 93010; 93306; 94002; 94003; 94640; 94660; 94760; 96361; 96365; 96367; 96375; 99292; A4353; C9113; C9132; J0692; J0696; J1100; J1750; J2060; J2250; J2270; J2405; J2469; J2550; J2704; J2916; J3010; J3370; J3430; J3489; J3490; J7050; J7070; J7620; J9045; J9181; P9016; P9059; Q9966; Q9967